=== PATIENT | female | born 1935 | race Caucasian/White ===

== ENCOUNTER 2017-12-30 16:54 | Emergency (ER) | payer MEDICARE, SELFPAY ==
[2017-12-30 16:55] VITALS: BP 128/69; PULSE 72; RESP 16; TEMP 36.5; O2SAT 95; BMI 28.0
--- NOTE | 2017-12-30 17:08 | EKG12_ITS ---
Test Reason : DIZZINESS Blood Pressure : / mmHG Vent. Rate : 070 BPM Atrial Rate : 070 BPM P-R Int : 202 ms QRS Dur : 090 ms QT Int : 396 ms P-R-T Axes : 049 -01 023 degrees QTc Int : 427 ms Normal sinus rhythm Septal infarct , age undetermined Abnormal ECG Confirmed by SUMMER COLEY, HARLEY ([id number]), editorial project manager MADHURI CORRAL ([id number]) on 01/04/2018 2:22:09 PM Referred By: Confirmed By:HARLEY WHEELER MD
--- NOTE | 2017-12-30 17:08 | RAD_ITS ---
STUDY: X-RAY CHEST REASON FOR EXAM: Female, 82 years old. Dizziness, shortness of breath. TECHNIQUE: Single AP portable view of the chest. COMPARISON: None. FINDINGS: The lungs are under expanded, and there is minor subsegmental crowding in the medial right base. Small calcified granuloma versus pulmonary vessel seen end-on in the medial left base above the diaphragm. There is no demonstrated pleural abnormality. There is borderline cardiomegaly. Normal mediastinum and micah. Normal visualized pulmonary arteries. Normal visualized aortic arch and descending thoracic aorta. Normal visualized thoracic spine. Normal visualized ribs, clavicles, and shoulders. There is no demonstrated abnormality of the visualized soft tissue structures of the upper abdomen. RAD/Chest 1 View (Portable) IMPRESSION: Suboptimal respiratory effort with minor medial right base subsegmental atelectasis. Electronically Signed: Lalo Jean-Baptiste MD at 17:56 EDT , Service support ,
--- NOTE | 2017-12-30 17:09 | ED.VISSUMM ---
- ER Visit Summary Date of Service: 12/30/17 Chief Complaint: Syncope History of Present Illness: The patient is a 82 F presenting after syncopal episode. Patient states she was at dinner she began to feel lightheaded, clammy, warm. She then had a syncopal episode. She did not fall to the floor. She denies any chest pain or shortness of breath prior to this incident. No history of similar complaints in the past. She has a history of hypertension, hypercholesterolemia, giant cell arteritis. She is on Plavix for history of a remote TIA. Denies other complaints. Physical Examination: Vitals are stable. Patient is afebrile. Alert no acute distress. HEENT exam is unremarkable. Neck is supple. Lungs are clear and equal bilaterally. Heart is regular rate and rhythm. Abdomen is soft nontender nondistended. Extremities are unremarkable. Skin is warm and dry. No focal neurologic deficit. Remainder of exam is unremarkable. Emergency Department Course and Treatment: EKG shows sinus rhythm rate is 70 with no acute ischemic changes. Chest x-ray shows atelectasis. CBC normal except for hemoglobin 11.8. Chemistries normal except for sodium 132, glucose 124. Patient states her sodium runs low. Urinalysis shows 10-25 white blood cells. Troponin is negative. Orthostatics are negative. Patient was given IV fluids and Keflex. Urine culture was sent. Patient refused CT head. Due to her syncopal episode I would like to observe her overnight. Patient declines admission. She understands the risks of leaving AGAINST MEDICAL ADVICE including [place], dysrhythmia, and signed out AGAINST MEDICAL ADVICE. She has an upcoming appointment with her primary care physician and is advised to follow-up with her primary care physician. She is advised to return to ED if she has any worsening complaints. Disposition: Left AGAINST MEDICAL ADVICE Impression: Syncope, UTI This note was generated with [employer] dictation software. It may contain incorrect words, spelling, and punctuation that were not noted in review of the chart prior to signing ED Disposition - Plan for ED Patient: Chief Complaint: Dizziness Instructions: ED Fainting Unkn Cause Prescriptions: Cephalexin [Keflex] 500 mg PO BID #14 capsule Referrals: Martha Hadley MD [Primary Care Provider] -
[2017-12-30 17:36] VITALS: BP 127/62; BP 150/69; BP 155/73; PULSE 77; PULSE 80; PULSE 81
--- NOTE | 2017-12-30 17:37 | NURSING ---
NO LW OR POA
[2017-12-30 17:39] LABS: Absolute Lymphocyte Count 1.44 X10^3/ul (0.83-4.51); Absolute Neutrophil Count 3.4 X10^3/uL (2.0-7.7); Basophil# 0.03 X10^3/uL; Basophil% 0.6 % (0-1); Eosinophil# 0.09 X10^3/uL; Eosinophils% 1.7 % (0-5); Hematocrit 36.3 % (37-47); Hemoglobin 11.8 g/dl (12.0-15.0); Lymphocyte # 1.44 X10^3/ul (4.0); Mean Corp Hgb Conc 32.5 g/gl (32-36); Mean Corpuscular Hgb 29.6 pg (27.0-32.0); Mean Corpuscular Volume 91.2 fL (81-99); Mean Platelet Vol. 7.9 fl (6.2-12.0); Monocyte# 0.34 X10^3/uL; Monocyte% 6.4 % (0-10); Neutrophil # 3.43 X10^3/uL (2.7-7.7); Neutrophil % 64.1 % (47-70); POSITIVE COUNT NO; POSITIVE DIFFERENTIAL NO; POSITIVE MORPHOLOGY NO; Platelet Count 222 K/mm3 (150-450); RBC Distribution Width CV 13.8 % (11.6-14.6); RBC Distribution Width SD 45.7 fl (35.1-43.9); Red Blood Count 3.98 M/mm3 (4.2-5.4); White Blood Count 5.3 K/mm3 (4.4-11.0)
[2017-12-30 17:59] LABS: Anion Gap 9 (5-15); BUN 12 mg/dL (7-18); BUN/Creat Ratio 12.3 RATIO (10-20); Calcium,Total 8.9 mg/dL (8.5-10.1); Chloride 96 mmol/L (98-107); Creatinine, Serum 0.98 mg/dL (0.55-1.02); EST Glomerular Filtration Rate 58 mL/min (>60); Est Glom Filt Rate - Afr Amer 70 mL/min (>60); Estimated Creatinine Clearance 35.61 ml/min; Glucose 124 mg/dL (74-106); Potassium 3.9 mmol/L (3.5-5.1); Sodium Level 132 mmol/L (136-145)
[2017-12-30 18:04] LABS: Bacteria 0 SEEN /hpf (None Seen); Squamous Epithelial Cells - UA 0 SEEN /hpf (5-10)
[2017-12-30 18:08] LABS: Color, Urine Yellow (Yellow); Glucose, Dipstick 50 mg/dl (Normal); Ketone-Dipstick 5 mg/dl (Negative); Leukocyte Esterase-Dipstick 500 /ul (Negative); Nitrite-Dipstick Negative (Negative); Occult Blood-Urine 25 /ul (Negative); Protein-Dipstick 30 mg/dl (Negative); Specific Gravity, Urine 1.025 (1.002-1.030); Urine Bilirubin Dipstick Negative (Negative); Urine Clarity Cloudy (Clear); Urine Urobilinogen 1 mg/dl (Normal)
[2017-12-30 18:25] LABS: Hyaline Cast 0-5 SEEN /lpf (0-5)
[2017-12-30 18:26] LABS: Mucous, Urine 2+ /hpf (<or=2+); Red Blood Cells-Urine 0-5 SEEN /hpf (0-5); White Blood Cells 10-25 SEEN /hpf (0-5)
--- NOTE | 2017-12-30 18:50 | ED.DEP ---
ED Disposition - Plan for ED Patient: Chief Complaint: Dizziness Instructions: ED Fainting Unkn Cause Prescriptions: Cephalexin [Keflex] 500 mg PO BID #14 capsule Referrals: Martha Hadley MD [Primary Care Provider] -
[2017-12-30 19:50] VITALS: BP 147/72; PULSE 94; RESP 23; O2SAT 95
[2017-12-30] MEDS: Cephalexin 250 MG Capsule 500 MG PO (19:50)
== END 2017-12-30 19:51 | disposition home or self-care (01) ==
PROVIDERS: Emergency Provider Emergency Medicine; Family Provider Internal Medicine; PCP Internal Medicine
DX: R55 Syncope and collapse (principal); N39.0 Urinary tract infection, site not specified; Z53.21 Procedure and treatment not carried out due to patient leaving prior to being seen by health care provider; J98.11 Atelectasis; I10 Essential (primary) hypertension; E78.00 Pure hypercholesterolemia, unspecified; M31.6 Other giant cell arteritis; Z86.73 Personal history of transient ischemic attack (TIA), and cerebral infarction without residual deficits; Z79.02 Long term (current) use of antithrombotics/antiplatelets; Z79.899 Other long term (current) drug therapy
CPT/HCPCS: 71045; 80048; 81001; 84484; 85025; 87086; 87088; 93005; 96360; 99285; J7040

== ENCOUNTER 2018-03-06 04:03 | Emergency (ER) | payer MEDICARE, SELFPAY ==
[2018-03-06 04:05] VITALS: BP 165/75; PULSE 86; RESP 16; TEMP 36.6; O2SAT 97; BMI 28.3
--- NOTE | 2018-03-06 04:17 | EKG12_ITS ---
Test Reason : LEFT ARM PAIN Blood Pressure : / mmHG Vent. Rate : 084 BPM Atrial Rate : 084 BPM P-R Int : 240 ms QRS Dur : 088 ms QT Int : 368 ms P-R-T Axes : 056 010 028 degrees QTc Int : 434 ms Sinus rhythm with 1st degree A-V block Otherwise normal ECG Confirmed by SUMMER COLEY, HARLEY ([id number]), associate editor MADHURI CORRAL ([id number]) on 03/10/2018 9:15:28 AM Referred By: VITALY Confirmed By:HARLEY WHEELER MD
--- NOTE | 2018-03-06 04:49 | ED.VISSUMM ---
- ER Visit Summary Date of Service: 03/06/18 Chief Complaint: Atraumatic left shoulder pain History of Present Illness: The patient is a 82 F home at rest and discomfort in her left shoulder. She denies any chest pain. She denies any shortness of breath. No nausea. This was nonexertional she has had no recent exertional dyspnea or exertional chest pain. She has had a recent cardiac workup which she states was negative. Including an echocardiogram as an outpatient. She states she initially did not want to come in but the paramedics were house and she decided to go ahead and be evaluated. At this time she does not want any further testing being done. Currently she is pain-free and symptom-free. Physical Examination: Well-appearing older female. Vital signs are stable and afebrile. Pulse is 97% room air no signs of hypoxia. H EENT exam unremarkable atraumatic. Neck nontender no JVD. Lungs clear to auscultation bilaterally. Heart regular rate and rhythm no murmur rate about 80. Chest wall nontender. No ecchymosis or bruising. No subcu air. Abdomen soft nontender. Normal bowel sounds no peritoneal signs. She is moving all 4 extremities. They are neurovascularly intact. She is equal symmetrical radial pulses. Calves are nontender without edema or cords. Back exam nontender. Neurologically she is awake and alert with no focal motor deficits. Test Results: EKG shows sinus rhythm a rate of 84 with no acute signs of HI or ischemia. There was a first-degree AV block. Emergency Department Course and Treatment: Patient's physical exam is normal. There is no reproducible pain or shoulder. She has normal range of motion the left shoulder. Her cardiac and rest of exam is otherwise unremarkable. Patient states she has had recent blood work done even a cardiac workup. She feels this is redundant and does not want any further testing. She understands this could be atypical cardiac presentation but she has had no recent exertional cardiac symptoms. She wants to be discharged to home. Treatment Plan: Follow-up with her primary care physician Dr. Hadley as needed. Return to ER feeling worse. She was offered but deferred a cardiac workup. Disposition: Discharge Impression: Atypical left shoulder discomfort resolved of uncertain etiology This note was generated with [employer] dictation software. It may contain incorrect words, spelling, and punctuation that were not noted in review of the chart prior to signing ED Disposition - Plan for ED Patient: Chief Complaint: Upper Extremity Injury Referrals: Martha Hadley MD [Primary Care Provider] -
--- NOTE | 2018-03-06 04:52 | ED.DEP ---
ED Disposition - Plan for ED Patient: Disposition: Home or Assisted Living Chief Complaint: Upper Extremity Injury Referrals: Martha Hadley MD [Primary Care Provider] - As soon as possible Additional Instructions: Your exam and vital signs are unremarkable tonight. I cannot explain the left shoulder discomfort it may be musculoskeletal it could be a an atypical cardiac presentation. Return if you are feeling worse specifically if you have chest pain, shortness of breath or nausea or breakout in a sweat. Follow-up your primary care physician for further evaluation.
[2018-03-06 05:05] VITALS: BP 151/76; PULSE 78; RESP 18; O2SAT 98
== END 2018-03-06 05:22 | disposition home or self-care (01) ==
PROVIDERS: Emergency Provider Emergency Medicine; Family Provider Internal Medicine; PCP Internal Medicine
DX: M25.512 Pain in left shoulder (principal); I10 Essential (primary) hypertension; Z86.73 Personal history of transient ischemic attack (TIA), and cerebral infarction without residual deficits; I44.0 Atrioventricular block, first degree
CPT/HCPCS: 93005; 99284

== ENCOUNTER 2020-04-15 15:58 | Observation (INO) | payer MEDICARE, SELFPAY ==
[2020-04-15] VITALS (12 sets, daily range): BP systolic 120–182; BP diastolic 71–90; PULSE 80–94; RESP 14–20; TEMP 36.6–36.7; O2SAT 95–97; BMI 30.4; BMI 29.6; BMI 29.7
[2020-04-15 16:05] LABS: Bedside Glucose 98 mg/dL (70-110)
--- NOTE | 2020-04-15 16:08 | ED.DCSUM_ITS ---
History of Present Illness Chief Complaint: Neuro S/Sx Informant: Patient Narrative: This is an 84-year-old female with history of stroke, hyperlipidemia, hypertension currently on Plavix presenting with symptoms of right arm paresthesia. She states this started about 1530. She states she was reading a book and she was having trouble reading the words and understanding them. She states that she felt confused. It is unknown if she had any facial droop. She was able to call her friend and did not apparently have slurred speech. Patient had been well prior to this. Past Medical History - Allergies and Home Meds Allergies/Adverse Reactions: Allergies No Known Allergies Allergy (Verified 04/15/20 16:20) Primary Care Physician: Martha Hadley MD [Primary Care Provider] - Prior records reviewed: Yes Surgical History: noncontributory Lives: Alone Smoking Status: Never smoker Alcohol: None Drugs: None - Family History Maternal Family History: Reports: Stroke Paternal Family History: Reports: Heart Disease - [place] Review of Systems General: Denies: Chills, Fever, Sweats Eyes: Reports: Visual changes - bilaterally, Blurred Vision - bilaterally - Resolved on arrival, Diplopia ENT: Denies: Rhinorrhea, Sore throat Cardiovascular: Denies: Chest pain, Palpitations Respiratory: Denies: Dyspnea, Cough, Dyspnea on exertion Gastrointestinal: Denies: Abdominal pain, Nausea, Vomiting, Diarrhea, Melena, Hematochezia Genitourinary: Denies: Dysuria, Hematuria, Frequency Musculoskeletal: Denies: Back pain, Extremity Pain Skin: Denies: Rash, Wounds Neurological: Reports: Parasthesia. Denies: Headache, Weakness, Numbness - Right arm Physical Exam Vital Signs/Narrative: Vital Signs Temp Pulse Resp BP Pulse Ox 04/15/20 16:00 97.8 F 94 17 182/90 H 95 General: Well nourished, Well developed, No Acute Distress Head: Normocephalic, Atraumatic Eyes: Perrl, EOMI ENT: Moist mucous membranes, No rhinorrhea Neck: Supple, Nontender Cardiovascular: Regular rate, Regular rhythm, No murmurs Respiratory: No distress, CTA bilaterally, Chest nontender Abdomen: Soft, Nontender, Nondistended, Normal bowel sounds Back: Nontender, Normal Inspection Extremities: Nontender, No edema Skin: Normal color, No rash Neurological: Alert, Oriented x3, Cranial nerves II-XII grossly intact, Normal Strength, Normal Sensation, - - NIH is 0 Psychological: Normal affect, Normal Mood Diagnostic/Tx/Re-eval - Rhythm Strip Rhythm Strip: Sinus Rhythm Rate: 91 - Medical Decision Making Clinical Impression(s) from Imaging Studies Brain CT 04/15/20 16:10 IMPRESSION: Mild atrophy and advanced periventricular white matter ischemic changes. No evidence for acute bleed. If concern for acute infarct MRI recommended Electronically Signed: Slava Arita MD at 16:25 EDT , Service support , ADDENDUM: 04/15/20 1638 IMPRESSION: Mild atrophy and advanced periventricular white matter ischemic changes. No evidence for acute bleed. If concern for acute infarct MRI recommended N.B. : The above information has been verbally conveyed by Slava Arita MD to Dr. Christopher Alatorre DO, on 04/15/2020 16:31:48 (ET). Electronically Signed: Slava Arita MD at 16:25 EDT , Service support , Head/Neck CTA 04/15/20 16:11 IMPRESSION: Normal CTA Head. Moderate approximately 60-70% stenosis of the left internal carotid Catheter angiography would be helpful for further evaluation and possible therapy if indicated clinically No significant disease on the right N.B. : The above information has been verbally conveyed by Slava Arita MD to Christopher Alatorre on 04/15/2020 16:35:35 (ET). Electronically Signed: Slava Arita MD at 16:44 EDT , Service support , ADDENDUM: 04/15/20 1651 IMPRESSION: Normal CTA Head. Moderate approximately 60-70% stenosis of the left internal carotid Catheter angiography would be helpful for further evaluation and possible therapy if indicated clinically No significant disease on the right N.B. : The above information has been verbally conveyed by Slava Arita MD to Christopher Alatorre on 04/15/2020 16:35:35 (ET). Electronically Signed: Slava Arita MD at 16:44 EDT , Service support , Laboratory Data 04/15/20 04/15/20 04/15/20 16:01 16:02 16:02 WBC 7.2 RBC 4.79 Hgb 13.4 Hct 41.0 MCV 85.6 MCH 28.0 MCHC 32.7 RDW Std Deviation 40.4 RDW Coeff of Mell 13.0 Plt Count 279 MPV 8.4 Immature Gran % (Auto) 0.300 Neut % (Auto) 57.8 Lymph % (Auto) 29.3 Dent % (Auto) 8.0 Eos % (Auto) 3.6 Baso % (Auto) 1.0 Absolute Neuts (auto) 4.2 Absolute Lymphs (auto) 2.12 Nucleated RBC % 0 Sodium 127 L Potassium 4.0 Chloride 92 L Carbon Dioxide 29.0 Anion Gap 6 BUN 20 H Creatinine 0.70 Estim Creat Clear Calc 30.62 Est GFR (MDRD) Af Amer 102 Est GFR (MDRD) Non-Af 84 BUN/Creatinine Ratio 28.4 H Glucose 105 Calcium 9.8 Troponin I < 0.015 POC Glucose 98 Patient presents with paresthesias in the right arm as well as confusion while reading. There is no reported facial droop or slurred speech. Patient's symptoms on arrival appear to be improved. Her NIH is 0. Head and neck to identify a left carotid stenosis otherwise there is no acute stroke or bleed. Quita sequeira's lab work does show that she is slightly dehydrated and hyponatremic which is possibly a cause of her symptoms. There is no lab work present for the last 3 years. Patient passed bedside swallow and was given aspirin. Impression: 1. TIA 2. Left carotid stenosis 3. Hyponatremia ED Disposition - Plan for ED Patient: Disposition: Acute Care Hospital [facility] Referrals: Martha Hadley MD [Primary Care Provider] -
--- NOTE | 2020-04-15 16:09 | EKG12_ITS ---
Test Reason : STROKE Blood Pressure : / mmHG Vent. Rate : 091 BPM Atrial Rate : 091 BPM P-R Int : 206 ms QRS Dur : 094 ms QT Int : 344 ms P-R-T Axes : 039 005 037 degrees QTc Int : 423 ms Normal sinus rhythm Normal ECG Confirmed by JOSE G COLEY, KETURAH ([id number]), online content editor MADHURI CORRAL ([id number]) on 04/17/2020 12:35:47 PM Referred By: JULIA Confirmed By:KETURAH ARAIZA MD
--- NOTE | 2020-04-15 16:09 | CM.ED ---
Social Work Responding to stroke alert. Patient friend, Suleiman present. Suleiman states that [place] son [place] and is aware of situation. Patient son, Brock on way to hospital. Patient alert and speaking with staff. No further family members to be contacted. Angelina Wise MSW, DIONNE
--- NOTE | 2020-04-15 16:10 | CT_ITS ---
We are attempting to reach an attending provider to discuss findings. An addendum with communication details will be sent when the communication is complete. STUDY: CT BRAIN WITHOUT CONTRAST REASON FOR EXAM: Female, 84 years old. STROKE, RT HAND NUMBNESS AND TINGLING, CONFUSION RADIATION DOSAGE (If Supplied By Facility): CTDIvol = ( ) mGy, DLP = ( 779.24 ) mGycm TECHNIQUE: Transaxial CT imaging of the brain was performed without administration of intravenous contrast material. Individualized dose optimization techniques were used for this CT. COMPARISON: No relevant priors. FINDINGS: Normal soft tissue structures. Normal calvarium. Calcification of cavernous carotids. Vertebrobasilar dolichoectasia consistent with systemic hypertension. Mild atrophy and advanced periventricular white matter ischemic changes.. Normal basal ganglia and thalami. Normal brainstem. Mild cerebellar atrophy. There is no intracranial hemorrhage. There are no findings of an acute ischemic infarction. Postsurgical changes of the orbits. There is diffuse pansinusitis with relative sparing of the right frontal sinus . CT/Brain/Head without Contrast IMPRESSION: Mild atrophy and advanced periventricular white matter ischemic changes. No evidence for acute bleed. If concern for acute infarct MRI recommended Electronically Signed: Slava Arita MD at 16:25 EDT , Service support ,
--- NOTE | 2020-04-15 16:11 | CT_ITS ---
STUDY: CTA HEAD AND NECK WITH CONTRAST REASON FOR EXAM: Female, 84 years old. CVA RADIATION DOSAGE (If Supplied By Facility): CTDIvol = ( 19.83 ) mGy, DLP = ( 460.94 ) mGycm TECHNIQUE: CT angiography was performed with a multi-detector CT scanner. Data acquisition was obtained from the skull base through the vertex following intravenous administration of ISOVUE 370 100ML. MIP images were reconstructed from the axial data set. Post-processing of the angiographic images was performed, with multiplanar reformation and 3D reconstruction. Individualized dose optimization techniques were used for this CT. COMPARISON: No relevant priors. FINDINGS: Normal bilateral petrous carotid arteries. Mild calcific plaquing of the right cavernous carotid artery with a normal supraclinoid bifurcation. Mild calcific plaquing of the left cavernous carotid artery with a normal supraclinoid bifurcation. Normal right A1 segments of the anterior cerebral artery. Normal left A1 segments of the anterior cerebral artery. Anterior communicating artery not visualized consistent with normal variant Normal bilateral A2 segments of the anterior cerebral arteries. Normal right M1 and M2 segments of the middle cerebral arteries, with a normal M1 bifurcation. Normal left M1 and M2 segments of the middle cerebral arteries, with a normal M1 bifurcation. Posterior communicating arteries are not visualized consistent with normal variant. Normal bilateral vertebral arteries. Normal basilar artery with a normal basilar bifurcation. The visualized bilateral superior cerebellar (SCA) arteries are normal. Normal bilateral P1, P2 and visualized P3 segments of the posterior cerebral arteries. There is no demonstrated aneurysm of the [place]. There is no demonstrated abnormality of the visualized brain. AORTIC ARCH: Normal visualized aortic arch. Normal origins of the brachiocephalic, left common carotid, and left subclavian arteries. RIGHT CAROTID ARTERIES: Mild multifocal calcific plaquing of the right common carotid artery (CCA). Normal right common carotid bulb. Normal origin of the right internal carotid (ICA) artery without a hemodynamically significant stenosis. Normal visualized cervical portion of the right internal carotid artery. Normal origin of the right external carotid artery (ECA). LEFT CAROTID ARTERIES: Normal left common carotid artery (CCA). Normal left common carotid bulb. Moderate soft and calcific plaquing of the origin of the left internal carotid (ICA) artery with approximately 60-70% stenosis utilizing NASCET criteria. Normal visualized cervical portion of the left internal carotid artery. Normal origin of the left external carotid artery (ECA). VERTEBRAL ARTERIES: Normal bilateral vertebral arteries. CT/CTA Head AND Neck W/ Contrast IMPRESSION: Normal CTA Head. Moderate approximately 60-70% stenosis of the left internal carotid Catheter angiography would be helpful for further evaluation and possible therapy if indicated clinically No significant disease on the right N.B. : The above information has been verbally conveyed by Slava Arita MD to Christopher Alatorre on 04/15/2020 16:35:35 (ET). Electronically Signed: Slava Arita MD at 16:44 EDT , Service support ,
[2020-04-15 16:24] LABS: Absolute Lymphocyte Count 2.12 X10^3/uL (0.83-4.51); Absolute Neutrophil Count 4.2 X10^3/uL (2.0-7.7); Basophil# 0.07 X10^3/uL; Eosinophil# 0.26 X10^3/uL; Eosinophils% 3.6 % (0-5); Hemoglobin 13.4 g/dL (12.0-15.0); Lymphocyte # 2.12 X10^3/ul (4.0); Lymphocyte % 29.3 % (19-41); Mean Corp Hgb Conc 32.7 g/dL (32-36); Mean Corpuscular Volume 85.6 fL (81-99); Mean Platelet Vol. 8.4 fl (6.2-12.0); Monocyte# 0.58 X10^3/uL; NRBC Flagged by Analyzer 0 % (0-5); Neutrophil # 4.19 X10^3/uL (2.7-7.7); Neutrophil % 57.8 % (47-70); Platelet Count 279 K/mm3 (150-450); RBC Distribution Width SD 40.4 fl (35.1-43.9); Red Blood Count 4.79 M/mm3 (4.2-5.4); White Blood Count 7.2 K/mm3 (4.4-11.0)
[2020-04-15 16:41] LABS: Anion Gap 6 (5-15); BUN 20 mg/dL (7-18); BUN/Creat Ratio 28.4 RATIO (10-20); Calcium,Total 9.8 mg/dL (8.5-10.1); Chloride 92 mmol/L (98-107); EST Glomerular Filtration Rate 84 mL/min (>60); Est Glom Filt Rate - Afr Amer 102 mL/min (>60); Estimated Creatinine Clearance 30.62 ml/min; Glucose 105 mg/dL (74-106); Sodium Level 127 mmol/L (136-145)
[2020-04-15 17:07] LABS: Prothrombin Time (Protime)PT. 12.3 SECONDS (11.7-14.9)
[2020-04-15 17:08] LABS: Partial Thromboplast Time 27.3 Seconds (24.1-36.2)
--- NOTE | 2020-04-15 17:13 | HP.PCM_ITS ---
Problem List (1) CVA (cerebral vascular accident) Status: Acute (2) Carotid stenosis Status: Chronic (3) PMR (polymyalgia rheumatica) Status: Chronic (4) Temporal arteritis Status: Chronic (5) Hyponatremia Status: Chronic (6) HTN (hypertension) Status: Chronic (7) HLD (hyperlipidemia) Status: Chronic History of Present Illness Date of Admission: 04/15/20 Chief Complaint: right hand parasthesias The patient is a 84 year old F with pmhx of prior stroke 2006 with no residual deficits, PMR and temporal arterities, HTN, HLD, and chronic hyponatremia who presented to the ER with c/o right hand numbness. The patient had no issues until today. At about 1430 she noticed that her right hand went numb. She also could not understand the words in the book she was trying to read. This went away after about 1 minute. She called a friend who contacted her doctor who advised going to the ER. The patient feels back to her normal self. She denies focal deficits, vision or hearing changes, DOWD, dizziness, palpitations, parasthesias. [] Past Medical History Past Medical History (Chronic Problems): Chronic Problems Carotid stenosis (Chronic) PMR (polymyalgia rheumatica) (Chronic) Temporal arteritis (Chronic) Hyponatremia (Chronic) HTN (hypertension) (Chronic) HLD (hyperlipidemia) (Chronic) Allergies No Known Allergies Allergy (Verified 04/15/20 16:20) Home Medications: Ambulatory Orders Medication Instructions Recorded Amlodipine [Norvasc] 5 mg PO DAILY 12/30/17 Atenolol [Tenormin (beta deanna)] 25 tab PO DAILY 12/30/17 Clopidogrel Bisulfate [Plavix] 75 mg PO DAILY 12/30/17 Lisinopril [Zestril] 10 mg PO BID 12/30/17 Lovastatin 40 mg PO DAILY 04/15/20 Omeprazole 20 mg PO DAILY 04/15/20 Surgical History: noncontributory Lives: Alone Smoking Status: Never smoker Tobacco Use: Non-smoker Alcohol: None Drugs: None - *Family History Maternal History Items: Stroke Paternal History Items: Heart Disease - [place] Review of Systems Constitutional: Denies: Chills, Fever, Weight Change HEENT: Denies: Head Aches, Sinus Congestion, Sinus Drainage Cardiovascular: Denies: Chest Pain, Palpitations Respiratory: Denies: Cough, Shortness of breath at rest, Sputum production Gastrointestinal: Denies: Abdominal Pain, Nausea, Vomiting Genitourinary: Denies: Dysuria Musculoskeletal: Denies: Joint Pain, Joint Tenderness Skin: Denies: Rash, Wounds Neurological: Reports: Numbness, - - could not read. Denies: Focal weakness, Tingling Psychiatric: Denies: Anxiety, Depression, Homicidal Ideations, Suicidal Ideations Hematologic/ Lymphatic: Denies: Easy Bruising, Easy Bleeding VTE Information - Inpt Only VTE Present on Admission: No VTE Mechan Device Prophylaxis: None VTE Pharm Prophylaxis ordered?: Yes Patient Problems: Active and Suspected Problems CVA (cerebral vascular accident) (Acute) - Physical Exam Vitals/I&O's: Vital Signs Temp Pulse Resp BP Pulse Ox 97.8 F 89 15 149/82 H 97 04/15/20 16:20 04/15/20 16:45 04/15/20 16:45 04/15/20 16:45 04/15/20 16:45 Oxygen Delivery Method Room Air Weight: 155 lb 13.869 oz Body Mass Index (BMI) 30.4 Finger Stick Blood Glucose 98 General: Alert, Oriented x3, Cooperative HEENT: Atraumatic, PERRLA, EOMI, Normocephalic Neck: Supple, No JVD, Negative Carotid Bruits Lungs: Clear to auscultation, Normal air movement Cardiovascular: Regular rate, No murmurs Abdomen: Bowel Sounds Present, Soft, Non Tender Extremities: No edema, Capillary Refill Less than 3 Seconds Skin: No rashes, No breakdown Musculoskeletal: No Tenderness to Palpation of Joints or Extremities Neurological: Cranial nerves II-XII grossly intact Psych/Mental Status: Normal Affect, Appropriate, Alert and oriented to time, place, person, mood and affect Laboratory Results 04/15/20 16:01: POC Glucose 98 04/15/20 16:02: WBC 7.2, RBC 4.79, Hgb 13.4, Hct 41.0, MCV 85.6, MCH 28.0, MCHC 32.7, RDW Std Deviation 40.4, RDW Coeff of Mell 13.0, Plt Count 279, MPV 8.4, Immature Gran % (Auto) 0.300, Neut % (Auto) 57.8, Lymph % (Auto) 29.3, [place] % (Auto) 8.0, Eos % (Auto) 3.6, Baso % (Auto) 1.0, Absolute Neuts (auto) 4.2, Absolute Lymphs (auto) 2.12, Nucleated RBC % 0 04/15/20 16:02: PT 12.3, INR 1.0, APTT 27.3 04/15/20 16:02: Sodium 127 L, Potassium 4.0, Chloride 92 L, Carbon Dioxide 29.0, Anion Gap 6, BUN 20 H, Creatinine 0.70, Estim Creat Clear Calc 30.62, Est GFR (MDRD) Af Amer 102, Est GFR (MDRD) Non-Af 84, BUN/Creatinine Ratio 28.4 H, Glucose 105, Calcium 9.8, Troponin I < 0.015 Current Medications Sodium Chloride () 500 mls @ 999 mls/hr IV .Q31M ONE Stop: 04/15/20 17:21 Assessment/Plan All Active Problems CVA (cerebral vascular accident) (Acute) 1. TIA - right hand parasthesias and inability to read, now asymptomatic. Pt with prior stroke. Trop neg. CTA 60-70% stenosis left ICA. Obtain carotid US. Obtain MRI brain, echo. Asa/plavix/statin. PT/OT/ST. 2. Hx HTN - permissive htn 3. HLD - lovastatin --> atorvastatin 4. Hx PMR with temporal arteritis. 5. Chronic hyponatremia - repeat BMP in AM. Unclear etiology. DVT ppx: lovenox This patient was seen by Jabari Do PA-C under the supervision of Dr. Paris.
[2020-04-15] MEDS: Aspirin 81 MG TAB.CHEW 324 MG PO (17:58)
--- NOTE | 2020-04-15 18:11 | RAD_ITS ---
STUDY: X-RAY CHEST REASON FOR EXAM: Female, 84 years old. CONFUSION, neuro sx TECHNIQUE: AP portable COMPARISON: 12-30-17 FINDINGS: Less than optimal inspiratory effort is seen however the lungs are clear. Tiny granulomatous process in left lower lobe There is no demonstrated pleural abnormality. Normal size heart. Normal mediastinum and micah. Normal visualized pulmonary arteries. Normal visualized aortic arch and descending thoracic aorta. Normal visualized thoracic spine. Normal visualized ribs, clavicles, and shoulders. There is no demonstrated abnormality of the visualized soft tissue structures of the upper abdomen. No significant changes since prior study RAD/Chest 1 View IMPRESSION: No acute cardiopulmonary pathology Electronically Signed: Slava Arita MD at 18:34 EDT , Service support ,
--- NOTE | 2020-04-15 19:35 | ECHOD_ITS ---
Reason For Study: ARRYTHYMIA Procedure This was a 2D Doppler, Color Flow transthoracic echocardiogram. The exam was of adequate technical quality. Exam performed portable in patient room. Left Ventricle Normal LV size. Left ventricular systolic function is normal. The estimated ejection fraction is 65 %. Diastolic function is indeterminate. No regional wall motion abnormalities noted. Right Ventricle Normal RV size. Normal systolic function. Atria The left atrium is mildly enlarged. Normal right atrium. Positive agitated saline contrast study for a right to left interatrial shunt compatible with a PFO versus ASD. Mitral Valve There is no mitral annular calcification. Mild diffuse mitral valve thickening. Mild mitral valve prolapse, posterior leaflet. Mild (1+) mitral valve insufficiency. Tricuspid Valve Normal tricuspid valve. Mild tricuspid valve insufficiency. Right ventricular systolic pressure estimated to be 47 mmHg. Aortic Valve Trisinus/trileaflet aortic valve. Mild diffuse aortic valve thickening. Trivial aortic valve insufficiency. Pulmonic Valve The pulmonic valve is not well visualized. Trivial pulmonic valve insufficiency. Great Vessels Normal sized aortic root. Calcified aortic root. Pericardium/Pleural Trivial pericardial effusion. There are no echocardiographic indications of cardiac tamponade. Medication Performed a rapid injection of agitated mix of 9 cc saline and 1cc air to assess for atrial septal defect. MMode/2D Measurements & Calculations LVIDd: 3.9 cm IVSd: 1.0 cm Ao root diam: 3.0 cm LVIDs: 2.5 cm LVPWd: 1.00 cm RVDd: 3.3 cm FS: 36.1 % LAV(MOD-bp): 48.9 ml LVAd ap4: 19.5 cm2 SV(MOD-sp4): 31.3 ml LAV(MOD-bp) Indexed: 29.5 ml/m2 EDV(MOD-sp4): 47.3 ml LAV(MOD-sp2): 51.1 ml EDV(sp4-el): 46.0 ml LAV(MOD-sp4): 46.6 ml LVAs ap4: 10.0 cm2 ESV(MOD-sp4): 16.0 ml ESV(sp4-el): 14.8 ml EF(MOD-sp4): 66.2 % EF(sp4-el): 67.9 % SV(sp4-el): 31.2 ml LA A4 area: 17.7 cm2 LA dimension(2D): 4.1 cm RA A4 area: 14.0 cm2 Time Measurements MV dec time: 0.32 sec Doppler Measurements & Calculations MV E max eliot: 43.1 cm/sec Lat Peak E' Eliot: 8.3 cm/sec Med Peak E' Eliot: 6.8 cm/sec MV A max eliot: 78.8 cm/sec E/E' lat: 5.2 E/E' med: 6.4 MV E/A: 0.55 Ao V2 max: 158.9 cm/sec AI max eliot: 302.2 cm/sec LV V1 max: 122.8 cm/sec Ao max P.1 mmHg AI max P.5 mmHg LV V1 max P.0 mmHg AI dec slope: 213.3 cm/sec2 AI P1/2t: 415.0 msec PA V2 max: 130.9 cm/sec TR max eliot: 328.4 cm/sec TR max P.1 mmHg Interpretation Summary Left ventricular systolic function is normal. The estimated ejection fraction is 65 %. The left atrium is mildly enlarged. Mild diffuse mitral valve thickening. Mild mitral valve prolapse, posterior leaflet Mild (1+) mitral valve insufficiency. Mild tricuspid valve insufficiency. Mild diffuse aortic valve thickening. Trivial aortic valve insufficiency. Trivial pulmonic valve insufficiency. Calcified aortic root. Trivial pericardial effusion. There are no echocardiographic indications of cardiac tamponade. Right ventricular systolic pressure estimated to be 47 mmHg. Diastolic function is indeterminate. Positive agitated saline contrast study for a right to left interatrial shunt compatible with a PFO versus ASD. Ordering Physician: Jazmine Paris Referring Physician: BERTO GREEN Performed By: Franca Lau RDCS
--- NOTE | 2020-04-15 19:35 | CDU_ITS ---
Reason For Study: TIA Rt. Velocities/BP Lt. Velocities/BP Prox CCA 74.7/9.5 cm/sec. Prox CCA 76.0/12.1 cm/sec. Mid CCA 85.2/10.8 cm/sec. Mid CCA 82.5/14.7 cm/sec. Dist CCA 81.2/12.1 cm/sec. Dist CCA 65.6/14.7 cm/sec. Prox ICA 78.6/12.1 cm/sec. Prox ICA 90.3/22.6 cm/sec. Mid ICA 56.5/10.8 cm/sec. Mid ICA 91.6/17.3 cm/sec. Dist ICA 73.4/17.3 cm/sec. Dist ICA 117.6/16.8 cm/sec. Rt. ICA/CCA = .9. Lt. ICA/CCA = 1.4. Prox ECA 119.1/8.2 cm/sec. Prox ECA 78.6 cm/sec. Rt. Vert. 38.2/9.5 cm/sec. Lt. Vert. 16.5/4.0 cm/sec. Right Extracranial There is intimal thickening but no significant atherosclerotic plaque noted in the right common carotid artery. There is heterogeneous, irregular atherosclerotic plaque noted in the right internal carotid artery. There is intimal thickening but no significant atherosclerotic plaque noted in the right external carotid artery. Antegrade flow is noted in the right vertebral artery. Left Extracranial There is heterogeneous, smooth atherosclerotic plaque noted in the left common carotid artery. There is heterogeneous, irregular atherosclerotic plaque noted in the left internal carotid artery. The left internal carotid artery is very tortuous. There is heterogeneous, irregular atherosclerotic plaque noted in the left external carotid artery. Antegrade flow is noted in the left vertebral artery. Procedure Carotid Duplex [id number]. The exam was diagnostic. Exam performed portable in patient room. Interpretation Summary Irregular calcific plaque of the proximal right internal carotid artery with less than 50% stenosis. <50% stenosis right external carotid Irregular calcific plaque at the proximal left internal carotid artery with less than 50% stenosis <50% stenosis left external carotid Patent and antegrade vertebrals bilaterally with diminished flow in the left Ordering Physician: Jazmine Paris Performed By: Tk Landeros RVT
[2020-04-15 20:10] LABS: Hemoglobin A1c 5.8 % (3.8-5.6); Magnesium 2.2 mg/dL (1.6-2.6); T4 Free Direct 1.14 ng/dL (0.76-1.46); Thyroid Stim Hormone (TSH) 6.69 uIU/mL (0.358-3.74)
[2020-04-15] MEDS: 0.9% Normal Saline 1,000 ML 100 ML IV (21:25)
[2020-04-15] MEDS: Atorvastatin Calcium 10 MG Tablet PO (21:25)
[2020-04-15] MEDS: Acetaminophen 325 MG Tablet 650 MG PO (21:29)
[2020-04-15] MEDS: BENZOCAINE/MENTHOL 1 LOZENGE MUCOUS MEM (21:36)
[2020-04-15 22:30] LABS: Urine Sodium 81 mmol/L (Not Establ.)
[2020-04-15 22:49] LABS: Osmolality, Urine 327 mOsm/KG
[2020-04-16] VITALS (8 sets, daily range): BP systolic 114–158; BP diastolic 70–85; PULSE 71–86; RESP 12–16; TEMP 36.4–37; O2SAT 94–98; BMI 29.6
[2020-04-16 06:02] LABS: Absolute Lymphocyte Count 1.64 X10^3/uL (0.83-4.51); Absolute Neutrophil Count 2.9 X10^3/uL (2.0-7.7); Basophil# 0.06 X10^3/uL; Basophil% 1.1 % (0-1); Eosinophils% 5.4 % (0-5); Hematocrit 36.4 % (37-47); Lymphocyte # 1.64 X10^3/ul (4.0); Lymphocyte % 29.6 % (19-41); Mean Corpuscular Hgb 28.6 pg (27.0-32.0); Mean Corpuscular Volume 86.9 fL (81-99); Monocyte# 0.63 X10^3/uL; Monocyte% 11.4 % (0-10); NRBC Flagged by Analyzer 0 % (0-5); Neutrophil % 52.3 % (47-70); Platelet Count 216 K/mm3 (150-450); RBC Distribution Width CV 13.4 % (11.6-14.6); RBC Distribution Width SD 41.9 fl (35.1-43.9); Red Blood Count 4.19 M/mm3 (4.2-5.4); White Blood Count 5.5 K/mm3 (4.4-11.0)
[2020-04-16 06:29] LABS: AST(SGOT) 15 U/L (15-37); Alanine Aminotransfer ALT/SGPT 17 U/L (13-56); Albumin, Serum 3.7 g/dL (3.2-5.0); Alkaline Phosphatase 66 U/L (45-117); Anion Gap 4 (5-15); BUN 13 mg/dL (7-18); BUN/Creat Ratio 17.5 RATIO (10-20); Calcium,Total 8.9 mg/dL (8.5-10.1); Chloride 98 mmol/L (98-107); Cholesterol 175 mg/dL (200); Creatinine, Serum 0.74 mg/dL (0.55-1.02); EST Glomerular Filtration Rate 79 mL/min (>60); Est Glom Filt Rate - Afr Amer 96 mL/min (>60); Estimated Creatinine Clearance 30.62 ml/min; Globulin 3.8 g/dL (2.2-4.2); Glucose 99 mg/dL (74-106); High Density Lipoprotein 76 mg/dL; Protein, Total 7.5 g/dL (6.4-8.2); Sodium Level 131 mmol/L (136-145); Triglycerides 66 mg/dL; Very Low Density Lipoprotein 13 mg/dL (5-40)
[2020-04-16] MEDS: 0.9% Normal Saline 1,000 ML 100 ML IV (06:43)
--- NOTE | 2020-04-16 07:00 | MRI_ITS ---
STUDY: MRI BRAIN WITHOUT CONTRAST REASON FOR EXAM: Female, 84 years old patient with right-sided arm paresthesia and confusion. TECHNIQUE: Standardized multiplanar fat and water weighted pulse sequences were obtained. COMPARISON: CT of the head dated 04-15-20. FINDINGS: There is moderate cerebral atrophy with widening of the extra-axial spaces and ventricular dilatation. There are multiple white matter hyperintensities, distributed throughout the deep white matter tracts of the cerebral hemispheres, consistent with moderate chronic white matter ischemic changes. There is confluent periventricular hyperintensity cloaking the lateral ventricles, consistent with periventricular leukoaraiosis. There is no evidence for recent intracranial ischemia or other cause of cytotoxic edema on diffusion weighted imaging (DWI). There is a small focus of susceptibility artifact in left cerebellum that may represent sequela of calcification or old petechial hemorrhage. There are prominent perivascular spaces (PVS) involving the basal ganglia. Normal thalami. There is no extra-axial fluid accumulation. Normal flow voids within the major intracranial circulation suggesting patency by spin echo criteria. There is ectatic tortuosity of the cavernous carotid arteries. Normal sella turcica, pituitary gland, infundibular stalk, optic chiasm and hypothalamus. Normal tectal plate and pineal gland. There are chronic white matter ischemic changes of the yolanda. The midbrain and medulla are otherwise normal. There are mild involutional changes of the cerebellum. There are large basal cisterns. Normal bilateral temporal bones. Normal bilateral internal auditory canals. There are bilateral ocular lens implants with otherwise normal intraorbital contents. There is mucoperiosteal inflammatory disease of the paranasal sinuses consistent with mild chronic sinusitis. Normal calvarium and skull base. Normal visualized soft tissue structures. There are degenerative changes of the cervical spine. MRI/Brain without Contrast IMPRESSION: 1. Involutional changes of the brain, as described above. 2. No MR evidence for acute infarct. Electronically Signed: Iman Jessica MD at 8:31 EDT , Service support ,
--- NOTE | 2020-04-16 08:52 | NURSING ---
VSA and NIHSS assessment late due to testing.
--- NOTE | 2020-04-16 08:58 | TELEMED_ITS ---
[facility] has confirmed receipt of a request for visit. This document confirms receipt of the order initiating the consult. To find the results of the consultation, please view the patient's reports for the scanned Telemed Consult.
[2020-04-16] MEDS: Clopidogrel Bisulfate 75 MG Tablet PO (10:00)
[2020-04-16] MEDS: 0.9% Saline Lock 10 ML Syringe IV (10:00)
[2020-04-16] MEDS: Enoxaparin 30 MG/0.3 ML Syringe SC (10:00)
[2020-04-16] MEDS: Pantoprazole Sodium 20 MG Tablet PO (10:00)
--- NOTE | 2020-04-16 10:09 | DCINST_ITS ---
- Discharge Diagnoses Current Active Problems: Current Active and Chronic Problems CVA (cerebral vascular accident) (Acute) Carotid stenosis (Chronic) PMR (polymyalgia rheumatica) (Chronic) Temporal arteritis (Chronic) Hyponatremia (Chronic) HTN (hypertension) (Chronic) HLD (hyperlipidemia) (Chronic) You will use the following diet at home:: Cardiac Your food should be the consistency of: Regular Your liquids should be the consistency of: Regular/Thin Discharge Activity: Return to Normal Activity Allergies/Adverse Reactions: Allergies No Known Allergies Allergy (Verified 04/15/20 16:20) Medications to take at Discharge Amlodipine [Norvasc] 5 mg PO DAILY 12/30/17 Atenolol [Tenormin (beta deanna)] 25 tab PO DAILY 12/30/17 Clopidogrel Bisulfate [Plavix] 75 mg PO DAILY 12/30/17 Lisinopril [Zestril] 10 mg PO BID 12/30/17 Omeprazole 20 mg PO DAILY 04/15/20 Aspirin [Aspirin, Baby] 81 mg PO DAILY@0800 tab.chew 04/16/20 Atorvastatin Calcium 40 mg PO QHS #30 tab 04/16/20 The following prescriptions were given: Atorvastatin Calcium 40 mg PO QHS #30 tab Prescription Printed Primary Care Physician: Martha Hadley MD [Primary Care Provider] - Please follow up with your Primary Care Physician in: 1-2 weeks Test Results: Test results from this visit will be discussed in further detail at your follow- up appointment, if applicable. Please Follow Up With: Sinan Mantilla MD When: 2 weeks Please Follow Up With: Jesus Ziegler MD When: 3-4 weeks Proposed Discharge Date: 04/16/20
[2020-04-16 10:30] LABS: Erythrocyte Sedimentation Rate 14 mm/hr (0-30)
[2020-04-16 10:35] LABS: CRP < 2.90 mg/L (0.0-3.0)
--- NOTE | 2020-04-16 10:43 | CASEMGMT ---
SW completed a PHQ 9 with patient as she possibly had a TIA. She scored a 3 which indicates minimal depression. Lupis TRUONG MSW
--- NOTE | 2020-04-16 11:22 | PHA.DC.MC ---
Pharmacy Service has performed discharge medication reconciliation and counseling for this patient. 1. ATORVASTATIN 40MG PO QHS 2. ASPIRIN 81MG PO DAILYCM The patient's discharge medication list was reviewed for discrepancies and discrepancies were resolved. Home Medications Amlodipine [Norvasc] 5 mg PO DAILY 12/30/17 Atenolol [Tenormin (beta deanna)] 25 tab PO DAILY 12/30/17 Clopidogrel Bisulfate [Plavix] 75 mg PO DAILY 12/30/17 Lisinopril [Zestril] 10 mg PO BID 12/30/17 Omeprazole 20 mg PO DAILY 04/15/20 Aspirin [Aspirin, Baby] 81 mg PO DAILY@0800 tab.chew 04/16/20 Atorvastatin Calcium 40 mg PO QHS #30 tab 04/16/20 The patient was counseled on the following discharge medications and changes in medications for homegoing were reviewed. The Reason for Use, instructions for use, and potential side effects were reviewed for all new medications. The patient's questions regarding all of their medications were answered. The patient was able to verbally demonstrate an understanding of their discharge medications. Patient counseled by deliverer pharmacyPantera.
--- NOTE | 2020-04-16 14:58 | DS.PCM_ITS ---
<Jabari Do - Last Filed: 04/16/20 15:10> Discharge Date and Diagnosis - Problem List Patient Problems: Active and Suspected Problems CVA (cerebral vascular accident) (Acute) Date of Admission: 04/15/20 Date of Discharge: 04/16/20 - Primary Discharge Diagnosis Acute Problems: Active Problems TIA ASD vs PFO Chronic hyponatremia Hx carotid stenosis hx Giant Cell arteritis and PMR HTN HLD - Secondary Discharge Diagnosis Chronic Problems: Chronic Problems Carotid stenosis (Chronic) PMR (polymyalgia rheumatica) (Chronic) Temporal arteritis (Chronic) Hyponatremia (Chronic) HTN (hypertension) (Chronic) HLD (hyperlipidemia) (Chronic) Hospital Course and Treatment Imaging Results: DIAGNOSTICS: 04/16/20 07:00 Brain without Contrast [MRI] Urgent CT/Brain/Head without Contrast IMPRESSION: Mild atrophy and advanced periventricular white matter ischemic changes. No evidence for acute bleed. If concern for acute infarct MRI recommended N.B. : The above information has been verbally conveyed by Slava Arita MD to Dr. Christopher Alatorre DO, on 04/15/2020 16:31:48 (ET). CT/CTA Head AND Neck W/ Contrast IMPRESSION: Normal CTA Head. Moderate approximately 60-70% stenosis of the left internal carotid Catheter angiography would be helpful for further evaluation and possible therapy if indicated clinically No significant disease on the right RAD/Chest 1 View IMPRESSION: No acute cardiopulmonary pathology Procedure Carotid Duplex [id number]. The exam was diagnostic. Exam performed portable in patient room. Interpretation Summary Irregular calcific plaque of the proximal right internal carotid artery with less than 50% stenosis. <50% stenosis right external carotid Irregular calcific plaque at the proximal left internal carotid artery with less than 50% stenosis <50% stenosis left external carotid Patent and antegrade vertebrals bilaterally with diminished flow in the left 2D TTE: Interpretation Summary Left ventricular systolic function is normal. The estimated ejection fraction is 65 %. The left atrium is mildly enlarged. Mild diffuse mitral valve thickening. Mild mitral valve prolapse, posterior leaflet Mild (1+) mitral valve insufficiency. Mild tricuspid valve insufficiency. Mild diffuse aortic valve thickening. Trivial aortic valve insufficiency. Trivial pulmonic valve insufficiency. Calcified aortic root. Trivial pericardial effusion. There are no echocardiographic indications of cardiac tamponade. Right ventricular systolic pressure estimated to be 47 mmHg. Diastolic function is indeterminate. Positive agitated saline contrast study for a right to left interatrial shunt compatible with a PFO versus ASD. MRI/Brain without Contrast IMPRESSION: 1. Involutional changes of the brain, as described above. 2. No MR evidence for acute infarct. Consults: Neurology - [facility] Cardiology - [place] Operations: None Procedures: 2-D Echocardiogram Summary of Care Provided: Hospital Course: The patient is a 84 year old F with pmhx as above who presented to the ER with c/o right hand numbness and inability to read. She experienced this for about 1- 2 minutes before it completely resolved. She was brought to the ER and found to have CT brain without acute findings, negative troponin, mild hyponatremia (chronic), and CTA head and neck showing 60-70% stenosis of the Left ICA. NIHSS 0 in the ER and patient felt back to her normal self. The patient was admitted to the PCU on tele. SR on tele overnight. MRI the following day was negative for stroke. Symptoms did not return. Neurology was consulted and felt this was a TIA. Carotid ultrasound was utilized to further evaluate underlying carotid stenosis, this found less than 50% stenosis of the right internal carotid artery, less than 50% stenosis of the right external carotid artery, less than 50% stenosis of the left internal carotid artery and less than 50% stenosis of the left external carotid artery. ESR and CRP were checked due to her hx of giant cell arteritis, however these were normal. She was already on plavix and lovastatin, plavix was continued, aspirin was added, and lovastatin was changed to atorvastatin. Echo was obtained and showed ASD vs PFO. Cardiology was consulted. The patient will likely need further evaluated with LEAN[facility]. The patient was discharged home in stable condition. She will need follow up with her PCP in 1-2 weeks, neurology in 3-4 weeks, vascular surgery in 2 weeks, and with cardiology as directed. This patient was seen by Jabari Do PA-C under the supervision of Doctor Hurley. [] Patient Problems: Active and Suspected Problems CVA (cerebral vascular accident) (Acute) - Physical Exam Vitals/I&O's: Vital Signs Temp Pulse Resp BP Pulse Ox 97.5 F L 82 16 146/85 H 95 04/16/20 09:56 04/16/20 09:56 04/16/20 09:56 04/16/20 09:56 04/16/20 09:56 Oxygen Delivery Method Room Air Weight: 151 lb 14.376 oz Body Mass Index (BMI) 29.6 Finger Stick Blood Glucose 98 Intake and Output for Last 24 Hours 04/14/20 04/15/20 04/16/20 23:59 23:59 23:59 Intake Total 740 / 740 1495 / 1495 Output Total 500 / 500 Balance 240 / 240 1495 / 1495 General: Alert, Oriented x3, Cooperative HEENT: Atraumatic, PERRLA, EOMI, Normocephalic Neck: Supple, No JVD, Negative Carotid Bruits Lungs: Clear to auscultation, Normal air movement Cardiovascular: Regular rate, No murmurs Abdomen: Bowel Sounds Present, Soft, Non Tender Extremities: No edema, Capillary Refill Less than 3 Seconds Skin: No rashes, No breakdown Musculoskeletal: No Tenderness to Palpation of Joints or Extremities Neurological: Cranial nerves II-XII grossly intact Psych/Mental Status: Normal Affect, Appropriate, Alert and oriented to time, place, person, mood and affect Laboratory Results 04/15/20 16:01: POC Glucose 98 04/15/20 16:02: WBC 7.2, RBC 4.79, Hgb 13.4, Hct 41.0, MCV 85.6, MCH 28.0, MCHC 32.7, RDW Std Deviation 40.4, RDW Coeff of Mell 13.0, Plt Count 279, MPV 8.4, Immature Gran % (Auto) 0.300, Neut % (Auto) 57.8, Lymph % (Auto) 29.3, [place] % (Auto) 8.0, Eos % (Auto) 3.6, Baso % (Auto) 1.0, Absolute Neuts (auto) 4.2, Absolute Lymphs (auto) 2.12, Nucleated RBC % 0 04/15/20 16:02: PT 12.3, INR 1.0, APTT 27.3 04/15/20 16:02: Sodium 127 L, Potassium 4.0, Chloride 92 L, Carbon Dioxide 29.0, Anion Gap 6, BUN 20 H, Creatinine 0.70, Estim Creat Clear Calc 30.62, Est GFR (MDRD) Af Amer 102, Est GFR (MDRD) Non-Af 84, BUN/Creatinine Ratio 28.4 H, Glucose 105, Calcium 9.8, Troponin I < 0.015 04/15/20 16:02: Magnesium 2.2, TSH 6.69 H, Free T4 1.14 04/15/20 16:02: Hemoglobin A1c 5.8 H 04/15/20 21:40: Urine Osmolality 327, Ur Random Sodium 81, Urine Creatinine 17.30 04/16/20 05:54: WBC 5.5, RBC 4.19 L, Hgb 12.0, Hct 36.4 L, MCV 86.9, MCH 28.6, MCHC 33.0, RDW Std Deviation 41.9, RDW Coeff of Mell 13.4, Plt Count 216, MPV 8.0, Immature Gran % (Auto) 0.200, Neut % (Auto) 52.3, Lymph % (Auto) 29.6, [place] % (Auto) 11.4 H, Eos % (Auto) 5.4 H, Baso % (Auto) 1.1 H, Absolute Neuts (auto) 2.9, Absolute Lymphs (auto) 1.64, Nucleated RBC % 0 04/16/20 05:54: Sodium 131 L, Potassium 4.0, Chloride 98, Carbon Dioxide 29.0, Anion Gap 4 L, BUN 13, Creatinine 0.74, Estim Creat Clear Calc 30.62, Est GFR (MDRD) Af Amer 96, Est GFR (MDRD) Non-Af 79, BUN/Creatinine Ratio 17.5, Glucose 99, Calcium 8.9, Total Bilirubin 0.40, AST 15, ALT 17, Alkaline Phosphatase 66, Total Protein 7.5, Albumin 3.7, Globulin 3.8, Albumin/Globulin Ratio 1.0, Triglycerides 66, Cholesterol 175, LDL Cholesterol 86, VLDL Cholesterol 13, HDL Cholesterol 76 04/16/20 05:55: ESR 14 04/16/20 05:55: C-React Prot Ext Range < 2.90 Current Medications Acetaminophen (Tylenol) 650 mg PO Q6H PRN PRN PRN Reason: Pain Score 1-10/Temp > 100.7 F Last Admin: 04/15/20 21:29 Dose: 650 mg Documented by: Al Hydroxide/Mg Hydroxide (Mylanta Ii) 30 ml PO Q6H PRN PRN PRN Reason: Gastric Burning Albuterol Sulfate (Ventolin Aerosols) 2.5 mg INHALATION Q2H PRN PRN PRN Reason: Dyspnea, wheezing Aspirin (Aspirin, Baby) 81 mg PO DAILY@0800 [facility] Atorvastatin Calcium (Lipitor) 40 mg PO QHS [facility] Clopidogrel Bisulfate (Plavix) 75 mg PO DAILY [facility] Last Admin: 04/16/20 10:00 Dose: 75 mg Documented by: Dextrose (D50w Syringe) 0 gm IV X1 PRN; Protocol PRN Reason: Hypoglycemia Enoxaparin Sodium (Lovenox) 30 mg SC DAILY [facility] Last Admin: 04/16/20 10:00 Dose: 30 mg Documented by: Folic Acid (Folic Acid) 1 mg PO DAILY [facility] Last Admin: 04/16/20 10:00 Dose: Not Given Documented by: Glucagon () 1 mg IM .X1 PRN PRN Reason: Hypoglycemia Guaifenesin (Robitussin) 20 ml PO Q4H PRN PRN PRN Reason: COUGH Hydralazine HCl (Apresoline Iv) 5 mg IV Q30M PRN PRN Reason: to maintain BP goals Sodium Chloride () 1,000 mls @ 100 mls/hr IV .Q10H [facility] Last Infusion: 04/16/20 10:00 Dose: 100 mls/hr Documented by: Labetalol HCl (Trandate) 10 - 20 mg IV Q10M PRN PRN PRN Reason: to maintain BP goals Magnesium Hydroxide (Milk Of Magnesia) 30 ml PO DAILY PRN PRN PRN Reason: Constipation Melatonin (Melatonin) 3 mg PO QHS PRN PRN PRN Reason: INSOMNIA Morphine Sulfate () 2 mg IV Q3H PRN PRN PRN Reason: Pain Score 6-10/10 Nitroglycerin (Nitrostat) 0.4 mg SUBLINGUAL Q5M PRN PRN Reason: CARDIAC/CHEST PAIN Ondansetron HCl (Zofran) 4 mg IV Q8H PRN PRN PRN Reason: NAUSEA/VOMITING Oxycodone HCl (Oxyir) 5 mg PO Q4H PRN PRN PRN Reason: Pain Score 4-5/10 Pantoprazole Sodium (Protonix) 20 mg PO DAILY [facility] Last Admin: 04/16/20 10:00 Dose: 20 mg Documented by: Prochlorperazine Edisylate (Compazine Iv) 5 mg IV Q4H PRN PRN PRN Reason: Breakthrough Nausea/Vomiting Psyllium Hydrophilic Mucilloid (Metamucil) 1 packet PO DAILY PRN PRN PRN Reason: Constipation Senna/Docusate Sodium (Senokot-S, Any-Colace) 2 tablet PO BID PRN PRN PRN Reason: Constipation Sodium Chloride () 10 - 40 ml IV UD PRN PRN Reason: SALINE FLUSH Last Admin: 04/16/20 10:00 Dose: 10 ml Documented by: Throat Lozenges (Cepacol Sore Throat Lozenge) 1 lozenge MUCOUS MEM Q2H PRN PRN PRN Reason: SORE THROAT Last Admin: 04/15/20 21:36 Dose: 1 lozenge Documented by: Discharge Diet: Low fat/ Low Cholesterol, 2000 mg Sodium Diet Discharge Activity: Return to Normal Activity Home Medications: Medications to take at Discharge Amlodipine [Norvasc] 5 mg PO DAILY 12/30/17 Atenolol [Tenormin (beta deanna)] 25 tab PO DAILY 12/30/17 Clopidogrel Bisulfate [Plavix] 75 mg PO DAILY 12/30/17 Lisinopril [Zestril] 10 mg PO BID 12/30/17 Omeprazole 20 mg PO DAILY 04/15/20 Aspirin [Aspirin, Baby] 81 mg PO DAILY@0800 tab.chew 04/16/20 Atorvastatin Calcium 40 mg PO QHS #30 tab 04/16/20 Following Prescrptions Were Given to Patient: Atorvastatin Calcium 40 mg PO QHS #30 tab Prescription Printed Other Amb Orders: 30-Day Event Recorder [[facility]] Location: None Selected Primary Care Physician: Martha Hadley MD [Primary Care Provider] - Please follow up with your Primary Care Physician in: 1-2 weeks Please Follow Up With: Sinan Mantilla MD When: 2 weeks Please Follow Up With: Jesus Ziegler MD When: 3-4 weeks Please Follow Up With: Mendoza Fuller MD When: as directed Disposition: Home Minutes spent on discharge:: 40 Patient Condition:: Stable Medical Necessity - Tobacco Use Smoking Status: Never smoker Tobacco Use: Non-smoker Meaningful Use Info Meaningful Use Diagnoses (Choose all that apply): None applicable <Melvin Hurley - Last Filed: 04/16/20 16:07> Discharge Date and Diagnosis - Primary Discharge Diagnosis Acute Problems: Active Problems CVA (cerebral vascular accident) (Acute) - Secondary Discharge Diagnosis Chronic Problems: Chronic Problems Carotid stenosis (Chronic) PMR (polymyalgia rheumatica) (Chronic) Temporal arteritis (Chronic) Hyponatremia (Chronic) HTN (hypertension) (Chronic) HLD (hyperlipidemia) (Chronic) Hospital Course and Treatment Imaging Results: 04/16/20 07:00 Brain without Contrast [MRI] Urgent Summary of Care Provided: This patient was seen in conjunction with Jabari STUBBS. I have independently interviewed and examined the patient and reviewed pertinent history, examination findings, laboratory and plan of management. I have reviewed the note and ag ree with the documented findings with the few additional points. In brief, The patient is a 84 year old F with history of hypertension, dyslipidemia is being admitted with right hand numbness and inability to read to PCU. Symptoms got resolved. NIH stroke scale 0. She had full stroke work-up. MRI brain did not show acute stroke. CTA head and neck showed 60 to 70% stenosis of left ICA. She further had carotid Doppler showed irregular calcific plaque of bilateral proximal ICA less than 50%, bilateral external carotid less than 50% stenosis. [facility] neurology was consulted and I agree with dual antiplatelet agent and high intensity statin. ESR and CRP normal. A1c 5.8 suggestive of prediabetes 2D echo showed small ASD versus PFO with [id number] shunt, mildly enlarged left atrium. Mild TR, RVSP 47 mmHg. Trivial AR. 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 Fuller was consulted. Advised to follow-up neurology as an outpatient. 30-day event monitor and further follow-up in cardiology office. Discharge medication reconciliation done. Discharge follow-up instructions completed. Discharge process discussed with the patient and all questions were answered to patient's satisfaction. Prescription for 30-day event monitor signed. Total time spent, exact 35 minutes on discharge meds reconciliation, examination, coordination of care with nurses and ancillary staff, review of imaging and blood test and discussion with the patient on follow-up instructions I have discussed my assessment with Jabari STUBBS and orders have been reviewed. [] Subjective: Patient blood pressure and heart rate is controlled. No hypoxia or tachypnea. Physical exam General: Alert, Oriented x3, Cooperative HEENT: Atraumatic, PERRLA, EOMI, Normocephalic Oral: No Gingival or Mucosal Lesions/ Ulcerations Neck: Supple, No JVD, Negative Carotid Bruits Lungs: Air entry diminished in bilateral lung bases. No crepitation/rhonchi Cardiovascular: Regular rate, Regular Rhythm, Normal S1, Normal S2, systolic murmur present over left lower sternal border. Faint early diastolic murmur at right second intercostal space. Abdomen: Bowel Sounds Present, Soft, Non Tender, Non-Distended : No renal angle tenderness. No suprapubic tenderness. Extremities: No edema, Capillary Refill Less than 3 Seconds Skin: No rashes, No breakdown Musculoskeletal: No Tenderness to Palpation of Joints or Extremities Neurological: Cranial nerves II-XII grossly intact, Deep Tendon Reflexes 2+/4 and Symmetrical, Neuro grossly intact. NIH stroke scale 0 Psych/Mental Status: Normal Affect, Appropriate. Objective: Seen and examined. Patient is alert awake oriented x3. - Physical Exam Vitals/I&O's: Vital Signs Temp Pulse Resp BP Pulse Ox 97.5 F L 83 16 146/85 H 95 04/16/20 09:56 04/16/20 14:52 04/16/20 09:56 04/16/20 09:56 04/16/20 09:56 Oxygen Delivery Method Room Air Weight: 151 lb 14.376 oz Body Mass Index (BMI) 29.6 Finger Stick Blood Glucose 98 Intake and Output for Last 24 Hours 04/14/20 04/15/20 04/16/20 23:59 23:59 23:59 Intake Total 740 / 740 1495 / 1495 Output Total 500 / 500 Balance 240 / 240 1495 / 1495 Laboratory Results 04/15/20 16:01: POC Glucose 98 04/15/20 16:02: WBC 7.2, RBC 4.79, Hgb 13.4, Hct 41.0, MCV 85.6, MCH 28.0, MCHC 32.7, RDW Std Deviation 40.4, RDW Coeff of Mell 13.0, Plt Count 279, MPV 8.4, Immature Gran % (Auto) 0.300, Neut % (Auto) 57.8, Lymph % (Auto) 29.3, [place] % (Auto) 8.0, Eos % (Auto) 3.6, Baso % (Auto) 1.0, Absolute Neuts (auto) 4.2, Absolute Lymphs (auto) 2.12, Nucleated RBC % 0 04/15/20 16:02: PT 12.3, INR 1.0, APTT 27.3 04/15/20 16:02: Sodium 127 L, Potassium 4.0, Chloride 92 L, Carbon Dioxide 29.0, Anion Gap 6, BUN 20 H, Creatinine 0.70, Estim Creat Clear Calc 30.62, Est GFR (MDRD) Af Amer 102, Est GFR (MDRD) Non-Af 84, BUN/Creatinine Ratio 28.4 H, Glucose 105, Calcium 9.8, Troponin I < 0.015 04/15/20 16:02: Magnesium 2.2, TSH 6.69 H, Free T4 1.14 04/15/20 16:02: Hemoglobin A1c 5.8 H 04/15/20 21:40: Urine Osmolality 327, Ur Random Sodium 81, Urine Creatinine 17. 30 04/16/20 05:54: WBC 5.5, RBC 4.19 L, Hgb 12.0, Hct 36.4 L, MCV 86.9, MCH 28.6, MCHC 33.0, RDW Std Deviation 41.9, RDW Coeff of Mell 13.4, Plt Count 216, MPV 8.0, Immature Gran % (Auto) 0.200, Neut % (Auto) 52.3, Lymph % (Auto) 29.6, [place] % (Auto) 11.4 H, Eos % (Auto) 5.4 H, Baso % (Auto) 1.1 H, Absolute Neuts (auto) 2.9, Absolute Lymphs (auto) 1.64, Nucleated RBC % 0 04/16/20 05:54: Sodium 131 L, Potassium 4.0, Chloride 98, Carbon Dioxide 29.0, Anion Gap 4 L, BUN 13, Creatinine 0.74, Estim Creat Clear Calc 30.62, Est GFR (MDRD) Af Amer 96, Est GFR (MDRD) Non-Af 79, BUN/Creatinine Ratio 17.5, Glucose 99, Calcium 8.9, Total Bilirubin 0.40, AST 15, ALT 17, Alkaline Phosphatase 66, Total Protein 7.5, Albumin 3.7, Globulin 3.8, Albumin/Globulin Ratio 1.0, Triglycerides 66, Cholesterol 175, LDL Cholesterol 86, VLDL Cholesterol 13, HDL Cholesterol 76 04/16/20 05:55: ESR 14 04/16/20 05:55: C-React Prot Ext Range < 2.90 Current Medications Acetaminophen (Tylenol) 650 mg PO Q6H PRN PRN PRN Reason: Pain Score 1-10/Temp > 100.7 F Last Admin: 04/15/20 21:29 Dose: 650 mg Documented by: Al Hydroxide/Mg Hydroxide (Mylanta Ii) 30 ml PO Q6H PRN PRN PRN Reason: Gastric Burning Albuterol Sulfate (Ventolin Aerosols) 2.5 mg INHALATION Q2H PRN PRN PRN Reason: Dyspnea, wheezing Aspirin (Aspirin, Baby) 81 mg PO DAILY@0800 [facility] Atorvastatin Calcium (Lipitor) 40 mg PO QHS [facility] Clopidogrel Bisulfate (Plavix) 75 mg PO DAILY [facility] Last Admin: 04/16/20 10:00 Dose: 75 mg Documented by: Dextrose (D50w Syringe) 0 gm IV X1 PRN; Protocol PRN Reason: Hypoglycemia Enoxaparin Sodium (Lovenox) 30 mg SC DAILY [facility] Last Admin: 04/16/20 10:00 Dose: 30 mg Documented by: Folic Acid (Folic Acid) 1 mg PO DAILY [facility] Last Admin: 04/16/20 10:00 Dose: Not Given Documented by: Glucagon () 1 mg IM .X1 PRN PRN Reason: Hypoglycemia Guaifenesin (Robitussin) 20 ml PO Q4H PRN PRN PRN Reason: COUGH Hydralazine HCl (Apresoline Iv) 5 mg IV Q30M PRN PRN Reason: to maintain BP goals Sodium Chloride () 1,000 mls @ 100 mls/hr IV .Q10H [facility] Last Infusion: 04/16/20 10:00 Dose: 100 mls/hr Documented by: Labetalol HCl (Trandate) 10 - 20 mg IV Q10M PRN PRN PRN Reason: to maintain BP goals Magnesium Hydroxide (Milk Of Magnesia) 30 ml PO DAILY PRN PRN PRN Reason: Constipation Melatonin (Melatonin) 3 mg PO QHS PRN PRN PRN Reason: INSOMNIA Morphine Sulfate () 2 mg IV Q3H PRN PRN PRN Reason: Pain Score 6-10/10 Nitroglycerin (Nitrostat) 0.4 mg SUBLINGUAL Q5M PRN PRN Reason: CARDIAC/CHEST PAIN Ondansetron HCl (Zofran) 4 mg IV Q8H PRN PRN PRN Reason: NAUSEA/VOMITING Oxycodone HCl (Oxyir) 5 mg PO Q4H PRN PRN PRN Reason: Pain Score 4-5/10 Pantoprazole Sodium (Protonix) 20 mg PO DAILY [facility] Last Admin: 04/16/20 10:00 Dose: 20 mg Documented by: Prochlorperazine Edisylate (Compazine Iv) 5 mg IV Q4H PRN PRN PRN Reason: Breakthrough Nausea/Vomiting Psyllium Hydrophilic Mucilloid (Metamucil) 1 packet PO DAILY PRN PRN PRN Reason: Constipation Senna/Docusate Sodium (Senokot-S, Any-Colace) 2 tablet PO BID PRN PRN PRN Reason: Constipation Sodium Chloride () 10 - 40 ml IV UD PRN PRN Reason: SALINE FLUSH Last Admin: 04/16/20 10:00 Dose: 10 ml Documented by: Throat Lozenges (Cepacol Sore Throat Lozenge) 1 lozenge MUCOUS MEM Q2H PRN PRN PRN Reason: SORE THROAT Last Admin: 04/15/20 21:36 Dose: 1 lozenge Documented by: OBSV E&M: [id number] Observation care discharge
--- NOTE | 2020-04-16 18:54 | PCM.CONS.C ---
Problem List (1) Interatrial cardiac shunt Status: Acute (2) CVA (cerebral vascular accident) Status: Acute (3) Carotid stenosis Status: Chronic (4) HLD (hyperlipidemia) Status: Chronic (5) HTN (hypertension) Status: Chronic Reason for Consult Date of Consultation: 04/16/20 History of Present Illness: The patient is a 84 year oldavp-godv-ehe white female who has previously followed with [facility] cardiology who states she has a history of a hole in my heart superimposed upon hyperlipidemia, hypertension, carotid artery disease, who is undergoing evaluation and care for a CVA. She states that she has been told in the past about the hole in my heart . She was told it was small and was not an issue that required further evaluation or care. She presented to the hospital for concerns of a TIA/CVA. As part of her evaluation she underwent a transthoracic echocardiogram. Her agitated saline contrast study was thought to be positive for right to left interatrial shunt compatible with either PFO versus an ASD. Thus cardiology was consulted. At the present time she denies any concerning chest discomfort or difficulty breathing. She has had no orthopnea or PND or peripheral pitting edema. She denies any palpitations or rapid heart rates. There is been no near syncope or syncope. She states she may have worn a heart monitor as an outpatient many years ago. She does not recall having any additional cardiac studies done other than previous transthoracic echocardiograms through the [facility] system. She has been evaluated by neurology. There is been recommendations to pursue further evaluation of her carotid artery disease as to a potential etiology for her CVA. At the moment she states she feels back to her baseline status. [] Past Medical History Allergies/Adverse Reactions: Allergies No Known Allergies Allergy (Verified 04/15/20 16:20) Home Medications: Ambulatory Orders Medication Instructions Recorded Amlodipine [Norvasc] 5 mg PO DAILY 12/30/17 Atenolol [Tenormin (beta deanna)] 25 tab PO DAILY 12/30/17 Clopidogrel Bisulfate [Plavix] 75 mg PO DAILY 12/30/17 Lisinopril [Zestril] 10 mg PO BID 12/30/17 Omeprazole 20 mg PO DAILY 04/15/20 Aspirin [Aspirin, Baby] 81 mg PO DAILY@0800 tab.chew 04/16/20 Atorvastatin Calcium 40 mg PO QHS #30 tab 04/16/20 Past Medical History (Chronic Problems): Chronic Problems Carotid stenosis (Chronic) PMR (polymyalgia rheumatica) (Chronic) Temporal arteritis (Chronic) Hyponatremia (Chronic) HTN (hypertension) (Chronic) HLD (hyperlipidemia) (Chronic) Surgical History: noncontributory - *Family History Maternal History Items: Stroke Paternal History Items: Heart Disease - [facility] Lives: Alone Smoking Status: Never smoker Tobacco Use: Non-smoker Alcohol: None Drugs: None Review of Systems - Review of Systems General: Denies: Fever, Night Sweats, Fatigue Cardiovascular: Denies: Chest Discomfort, Shortness of Breath, Orthopnea, PND, Peripheral Edema, Palpitations, Lightheadedness, Dizziness, Near Syncope, Syncope Respiratory: Denies: Cough, Sputum Production, Hemoptysis Gastrointestinal: Denies: Hematemesis, Hematochezia, Melena Genitourinary: Denies: Dysuria, Hematuria Skin: Denies: Rash Subjectve: This is a pleasant 84-year-old white female who appears resting comfortably at the moment in no acute distress. Objective: Vital Signs Temp Pulse Resp BP Pulse Ox 98.4 F 86 16 158/77 H 96 04/16/20 16:02 04/16/20 16:02 04/16/20 16:02 04/16/20 16:02 04/16/20 16:02 Oxygen Delivery Method Room Air Weight: 151 lb 14.376 oz Body Mass Index (BMI) 29.6 Finger Stick Blood Glucose 98 Intake and Output for Last 24 Hours 04/14/20 04/15/20 04/16/20 23:59 23:59 23:59 Intake Total 740 / 740 2121.67 / 2121.67 Output Total 500 / 500 Balance 240 / 240 1. / 212. General: Awake, Alert, Oriented x 3, Cooperative, No Acute Distress HEENT: Atraumatic, Normocephalic, PERRL, EOMI, Sclera Non Icteric Neck: Supple, Good ROM, No JVD Lungs: Clear to auscultation Cardiovascular: Regular Rhythm, Normal S1, Normal S2 Murmur Murmur: Grade 2/6, Soft, Mid Systolic, LLSB, LVOT Vascular: No Carotid Bruits Abdomen: Bowel Sounds Present, Soft, Non Tender Extremities: No edema Psych/Mental Status: Appropriate 04/15/20 16:02: Magnesium 2.2 04/15/20 16:02: Hemoglobin A1c 5.8 H 04/16/20 05:54: WBC 5.5, RBC 4.19 L, Hgb 12.0, Hct 36.4 L, MCV 86.9, MCH 28.6, MCHC 33.0, Plt Count 216, MPV 8.0, Immature Gran % (Auto) 0.200, Neut % (Auto) 52.3, Lymph % (Auto) 29.6, [place] % (Auto) 11.4 H, Eos % (Auto) 5.4 H, Baso % (Auto) 1.1 H, Absolute Neuts (auto) 2.9, Nucleated RBC % 0 04/16/20 05:54: Sodium 131 L, Potassium 4.0, Chloride 98, Carbon Dioxide 29.0, Anion Gap 4 L, BUN 13, Creatinine 0.74, Est GFR (MDRD) Af Amer 96, Est GFR (MDRD) Non-Af 79, BUN/Creatinine Ratio 17.5, Glucose 99, Calcium 8.9, Total Bilirubin 0.40, Triglycerides 66, Cholesterol 175, LDL Cholesterol 86, VLDL Cholesterol 13, HDL Cholesterol 76 Rhythm: Sinus rhythm EKG: Sinus rhythm ECHO: Interpretation Summary Left ventricular systolic function is normal. The estimated ejection fraction is 65 %. The left atrium is mildly enlarged. Mild diffuse mitral valve thickening. Mild mitral valve prolapse, posterior leaflet Mild (1+) mitral valve insufficiency. Mild tricuspid valve insufficiency. Mild diffuse aortic valve thickening. Trivial aortic valve insufficiency. Trivial pulmonic valve insufficiency. Calcified aortic root. Trivial pericardial effusion. There are no echocardiographic indications of cardiac tamponade. Right ventricular systolic pressure estimated to be 47 mmHg. Diastolic function is indeterminate. Positive agitated saline contrast study for a right to left interatrial shunt compatible with a PFO versus ASD. CXR: Preliminary evaluation: No acute cardiopulmonary disease process appreciated: Please see official report Assessment/Plan 1. Interatrial cardiac shunt The patient does have noninvasive findings on transthoracic echocardiogram compatible with a right to left interatrial shunt compatible with either PFO or ASD. She states that this is not a new finding for her. Her previous [facility] cardiovascular records and echocardiograms are unavailable for review at this time. At the present time she does not appear to have any acute symptomatic or hemodynamic compromise related to this chronic finding. Is also not clear that this is related to her TIA/CVA event. If this were to be pursued further she would have to be considered for a transesophageal echocardiogram to further define her atrial septal anatomy and physiology. Prior to such she would have to go through COVID-19 testing. At the moment as she appears to be symptomatically and hemodynamically stable and her neurologic symptoms are reported is resolved and noting that this is a chronic finding it does not appear that she needs urgent/emergent [facility] for further evaluation. 2. CVA She was reported as having TIA/CVA. She has been evaluated by neurology. She will continue per their recommendations with respect to medical therapy and any concerns with respect to her carotid artery disease. 3. Carotid artery stenosis She does have an element of carotid artery stenosis. Based upon the report available for review it appeared that her stenosis is less than 50% bilaterally. She can have this further evaluated per neurology and peripheral vascular surgery as deemed appropriate. 4. Hyperlipidemia She does have a history of hyperlipidemia. She should continue medical management as deemed appropriate. 5. Hypertension She has a history of hypertension. Her blood pressure will need to be followed with adjustment of medications as needed. Overall the patient appears to be symptomatically and hemodynamically stable at the moment. She can continue with outpatient cardiovascular follow-up as deemed appropriate. She does state that she would prefer to transfer her cardiovascular care locally with [facility] as she no longer wants to drive out of town to have her cardiovascular care performed at remote [place] locations. She would also like to establish local neurology care as well. The above was discussed with the patient and Dr. Hurley of the [facility] hospitalist team. It appears the patient is going to be released home for continued outpatient cardiovascular follow-up, neurology follow-up, and primary care [id number]. This note was generated using a voice recognition system and there may be incorrect words, spelling or punctuation that were not noted when reviewing the office note prior to saving.
== END 2020-04-16 10:11 | disposition home or self-care (01) ==
LOC: ED 17:47 → PCU 18:04
PROVIDERS: Physician Assistant; Admitting Provider Family Medicine; Emergency Provider Student in an Organized Health Care Education/Training Program; PCP Internal Medicine; Visit Provider Internal Medicine
DX: I63.9 Cerebral infarction, unspecified (principal); I10 Essential (primary) hypertension; E78.5 Hyperlipidemia, unspecified; Z79.02 Long term (current) use of antithrombotics/antiplatelets; Z79.899 Other long term (current) drug therapy; Z86.73 Personal history of transient ischemic attack (TIA), and cerebral infarction without residual deficits; R29.700 NIHSS score 0; E87.1 Hypo-osmolality and hyponatremia; M31.5 Giant cell arteritis with polymyalgia rheumatica; K21.9 Gastro-esophageal reflux disease without esophagitis; I08.3 Combined rheumatic disorders of mitral, aortic and tricuspid valves
CPT/HCPCS: 36415; 70450; 70496; 70498; 70551; 71045; 80048; 80053; 80061; 82570; 82962; 83036; 83735; 83935; 84300; 84439; 84443; 84484; 85025; 85610; 85652; 85730; 86140; 93005; 93306; 93880; 94762; 96360; 96361; 96372; 97802; 99218; 99251; 99285; J7030; Q9967; A4216; G0378; G0463

== ENCOUNTER → 2020-05-30 10:38 | Outpatient (CLI) | payer MEDICARE, SELFPAY ==
[2020-05-30 09:31] VITALS: BMI 29.7
[2020-05-30 12:09] LABS: T4 Total, Thyroxin 10.6 ug/dL (4.8-13.9); Thyroid Stim Hormone (TSH) 2.76 uIU/mL (0.358-3.74)
== END ==
PROVIDERS: Internal Medicine Cardiovascular Disease; PCP Internal Medicine; Referring Provider Internal Medicine Cardiovascular Disease; Visit Provider Internal Medicine Cardiovascular Disease
DX: I10 Essential (primary) hypertension (principal); R53.83 Other fatigue; Q21.1 Atrial septal defect; I49.3 Ventricular premature depolarization; I47.2 Ventricular tachycardia; E78.5 Hyperlipidemia, unspecified
CPT/HCPCS: 36415; 84436; 84443

== ENCOUNTER → 2020-06-04 05:51 | Outpatient (CLI) | payer MEDICARE, SELFPAY ==
[2020-05-10 09:34] VITALS: BMI 29.3
[2020-05-30 09:31] VITALS: BMI 29.7
--- NOTE | 2020-06-04 09:51 | STRESSREP ---
Stress Test Report Date: p?15?2019 Procedure: Pharmacologic stress nuclear imaging study Indications: Cardiac dysrhythmias; ventricular ectopy/dysrhythmia Consent: Per the patient Procedure: The patient underwent pharmacologic (Regadenoson) evaluation with a peak heart rate of 103 beats per minute (75 %predicted maximal heart rate) and a peak blood pressure of 166/78 mmHg. The baseline ECG demonstrated sinus rhythm. The peak pharmacologic ECG demonstrated this ECG changes. There was a rare PVC during recovery. There was no complaint of chest discomfort during pharmacologic infusion or recovery. The examination was discontinued secondary to completion of protocol. Impression: 1. Pharmacologic (Regadenoson) evaluation 2. Peak pharmacologic ECG with with no obvious ECG changes. 3. There was a rare PVC during recovery. 4. Nuclear images pending Myocardial perfusion imaging study: Technique: The patient was injected with 11.2 millicuries of technetium 99m Cardiolite and subsequently rest SPECT Cardiolite nuclear imaging was obtained in the horizontal long, vertical long, and short axis views. The patient underwent pharmacologic (Regadenoson) evaluation with a peak heart rate of 103 beats per minute (75 % percent predicted maximal heart rate) and a peak blood pressure of 166/78 mmHg. The patient was injected with 35.8 millicuries of technetium 99m Cardiolite and subsequently stress SPECT Cardiolite nuclear imaging was obtained in the horizontal long, vertical long, and short axis views. A gated Cardiolite study at peak stress was obtained. Interpretation: Rest and stress SPECT Cardiolite nuclear imaging status post realignment, normalization, and attenuation correction demonstrate relative uniform tracer uptake and myocardial perfusion appearing within normal limits. There is end systolic thickening and brightening. The gated Cardiolite study demonstrates myocardial thickening and inward wall motion. The reported LVEF is 35 %. Impression: 1. Rest and stress SPECT Cardiolite nuclear imaging demonstrate relative uniform tracer uptake and myocardial perfusion appearing within normal limits. 2. The gated Cardiolite study reports an LVEF of 35 %. This note was generated with [employer] software. It may contain incorrect words, spelling, and punctuation that were not noted in checking the note before signing.
== END ==
PROVIDERS: PCP Internal Medicine; Referring Provider Internal Medicine Cardiovascular Disease; Visit Provider Internal Medicine Cardiovascular Disease
DX: I49.9 Cardiac arrhythmia, unspecified (principal); I47.2 Ventricular tachycardia; I49.3 Ventricular premature depolarization; I10 Essential (primary) hypertension; R94.31 Abnormal electrocardiogram [ECG] [EKG]
CPT/HCPCS: 78452; 93017; A9500; A4216; J2785

== ENCOUNTER 2020-10-17 09:11 | Outpatient (RCR) | payer MEDICARE, SELFPAY | END 2020-10-17 23:59 | LOC: IMMUN 09:11 | PROVIDERS: PCP Internal Medicine; Visit Provider Family Medicine | DX: Z23 Encounter for immunization (principal) | CPT/HCPCS: 0011A; 0012A; 91301 ==

== ENCOUNTER → 2020-11-07 12:33 | Outpatient (CLI) | payer MEDICARE, SELFPAY ==
--- NOTE | 2020-11-07 12:34 | CDU_ITS ---
Reason For Study: Carotid stenosis Rt. Velocities/BP Lt. Velocities/BP Prox CCA 104.7/9.5 cm/sec. Prox CCA 96/13.5 cm/sec. Mid CCA 79.9/10.8 cm/sec. Mid CCA 86/15.7 cm/sec. Dist CCA 70.8/9.5 cm/sec. Dist CCA 78.3/11.3 cm/sec. Prox ICA 106/14.7 cm/sec. Prox ICA 84.9/11.3 cm/sec. Mid ICA 65.6/13.4 cm/sec. Mid ICA 92.6/19 cm/sec. Dist ICA 78.3/16.8 cm/sec. Dist ICA 79.4/11.3 cm/sec. Rt. ICA/CCA = 1.3. Lt. ICA/CCA = 1.1. Prox ECA 81.2/4.3 cm/sec. Prox ECA 79.4/5.8 cm/sec. Rt. Vert. 43.2/8 cm/sec. Lt. Vert. 46.6/11.6 cm/sec. Right Extracranial There is intimal thickening but no significant atherosclerotic plaque noted in the right common carotid artery. There is heterogeneous, irregular atherosclerotic plaque noted in the right internal carotid artery. There is intimal thickening but no significant atherosclerotic plaque noted in the right external carotid artery. Antegrade flow is noted in the right vertebral artery. Left Extracranial There is heterogeneous, smooth atherosclerotic plaque noted in the left common carotid artery. There is heterogeneous, irregular atherosclerotic plaque noted in the left internal carotid artery. There is heterogeneous, irregular atherosclerotic plaque noted in the left external carotid artery. Antegrade flow is noted in the left vertebral artery. Procedure Carotid Duplex [id number]. This is a Carotid Duplex examination using B-mode, color flow and specral Doppler. Exam performed in department. Interpretation Summary Irregular calcific plaque of the proximal right internal carotid artery with less than 50% stenosis Less than 50% stenosis right external carotid artery Irregular calcific plaque noted within the proximal left internal carotid artery with less than 50% stenosis Less than 50% stenosis left external carotid artery Patent and antegrade vertebrals bilaterally No significant change from the previous examination of April 16, 2020 other than the left vertebral artery flow appears normal today. Ordering Physician: Sinan Mantilla Referring Physician: Martha Hadley M.D. Performed By: Apurva Eddy RVT
== END ==
PROVIDERS: PCP Internal Medicine; Referring Provider Surgery; Visit Provider Surgery
DX: I65.22 Occlusion and stenosis of left carotid artery (principal)
CPT/HCPCS: 93880

== ENCOUNTER 2021-03-19 05:56 | Emergency (ER) | payer MEDICARE, SELFPAY ==
[2021-03-19 05:57] VITALS: BP 157/68; PULSE 88; RESP 18; TEMP 36.6; O2SAT 96; BMI 31.1
--- NOTE | 2021-03-19 06:11 | ED.VIS.GI ---
HPI HPI - GI History of Present Illness Chief Complaint: GI Bleed Narrative Narrative: Patient presents with bright red blood per rectum. She stated she had a long hard bowel movement that hurt. She has had these in the past secondary to constipation. She noticed some bleeding afterwards. This concerned her. She stated she had a history of hemorrhoid in the past remotely but does not know if it was internal or external. She has never had this type of bleeding. Last colonoscopy was several years ago. She is not had any problems otherwise. She laid down for several hours. When she went back to the bathroom twice she noted some bleeding in the bowl which was bright red. This concerned her therefore she came in. She is on a baby aspirin and Plavix. [facility] Medical History (Updated 03/19/21 @ 06:[address] Lucas Augustin MD) Cardiac arrhythmia Carotid stenosis CVA (cerebral vascular accident) HLD (hyperlipidemia) HTN (hypertension) Hyponatremia Interatrial cardiac shunt NSVT (nonsustained ventricular tachycardia) Patent foramen ovale PMR (polymyalgia rheumatica) Premature ventricular contraction Temporal arteritis Home Medications amlodipine 5 mg PO DAILY 12/30/17 [History Last Taken 04/15/20] atenolol 25 tab PO DAILY 12/30/17 [History Last Taken 04/15/20] clopidogrel 75 mg PO DAILY 12/30/17 [History Last Taken 04/15/20] lisinopril 10 mg PO BID 12/30/17 [History Last Taken 04/15/20] omeprazole 20 mg PO DAILY 04/15/20 [History Last Taken 04/15/20] aspirin 81 mg PO DAILY@0800 tab.chew 04/16/20 [Rx Last Taken Unknown] lovastatin 40 mg tablet 40 mg PO QPM 05/30/20 [History Last Taken Unknown] loratadine [Claritin] 10 mg PO DAILY 03/19/21 [History Last Taken Unknown] Allergy/AdvReac Type Severity Reaction Status Date / Time No Known Allergies Allergy Verified 11/12/20 13:00 Family History Mother CVA (cerebral vascular accident) Father Heart disease Myocardial infarction Surgical History History of wisdom tooth extraction Social History Smoking Status: Never smoker alcohol intake: never substance use type: does not use caffeine: No ROS ROS ED ROS Narrative ROS General: Denies fever, chills, sweats Eyes: Denies visual changes, blurred vision, double vision ENT: Denies ear pain, rhinorrhea, sore throat Cardiovascular: Denies chest pain, palpitations, heart racing Respiratory: Denies dyspnea, cough, sputum, dyspnea on exertion, orthopnea,PND GI: See HPI : Denies dysuria, hematuria, frequency Musculoskeletal: Denies myalgias, arthralgias, neck pain, back pain Skin: Denies rash, abscess, abrasions Neuro: Denies headache, weakness, paresthesia Psych: Denies depression, anxiety Endo: Denies polyuria, polydipsia, polyphagia Heme: Denies easy bruising, easy bleeding, lymphadenopathy Allergy: Denies hives, swelling EXAM Physical Exam Narrative Exam Narrative: Vital signs reviewed General: Well-nourished well-developed Head: Normocephalic atraumatic Eyes: Pupils equal round and reactive to light extraocular movements intact ENT: TMs clear no hemotympanum no trauma Neck: Nontender full range of motion Cardiovascular: Regular rate rhythm no murmurs normal S1-S2 Respiratory: No distress clear to auscultation bilaterally chest nontender Abdomen: Soft nontender nondistended normal bowel sounds no masses Rectal exam: Patient has no external ulcerations or tears. No external hemorrhoids. Upon bearing down she has bright red blood per rectum approximately 5 cc. Back: Nontender no CVA tenderness Extremities: Nontender active range of motion ?4 extremities no trauma Skin: Normal color no trauma Neuro alert oriented cranial nerves II through XII intact normal strength sensation reflexes Const Vital Signs: 03/19/21 05:57 Temperature 97.8 F Temperature Source Temporal Pulse Rate 88 Respiratory Rate 18 Blood Pressure 157/68 H Blood Pressure Mean 97 Pulse Ox 96 Oxygen Delivery Method Room Air MDM MDM MDM Narrative Medical decision making narrative: IV inserted. Lab work obtained. CBC normal. Coags negative. On reevaluation resting comfortably with no significant further bleeding. I suspect she had a small bleeding internal hemorrhoid. She had a very hard long bowel movement. I do not feel she needs admitted for this. She will follow-up with Dr. Manley with general surgery. She is going to do MiraLAX. She will return if she worsens Lab Data Labs: Laboratory Results - last 24 hr 03/19/21 03/19/21 06:20 06:20 WBC 11.8 H RBC 4.74 Hgb 12.7 Hct 39.6 MCV 83.5 MCH 26.8 L MCHC 32.1 RDW Std Deviation 42.2 RDW Coeff of Mell 13.8 Plt Count 253 MPV 8.3 Immature Gran % (Auto) 0.300 Neut % (Auto) 83.8 H Lymph % (Auto) 10.5 L [place] % (Auto) 4.7 Eos % (Auto) 0.3 Baso % (Auto) 0.4 Absolute Neuts (auto) 9.9 H Absolute Lymphs (auto) 1.23 Nucleated RBC % 0 PT 12.9 INR 1.0 APTT 29.2 Discharge Plan Triage Chief Complaint: GI Bleed ED Provider: Lucas Augustin Dx/Rx/DC Orders Clinical Impression: Bleeding internal hemorrhoids Instructions: ED Hemorrhoids Prescriptions: No Action lovastatin 40 mg tablet 40 mg PO QPM RF: 0 atenolol 25 MG tablet 25 tab PO DAILY RF: 0 clopidogrel 75 MG tablet 75 mg PO DAILY RF: 0 amlodipine 5 MG tablet 5 mg PO DAILY RF: 0 lisinopril 10 MG tablet 10 mg PO BID RF: 0 omeprazole 20 MG capsule,delayed release(DR/EC) 20 mg PO DAILY RF: 0 aspirin 81 MG tablet,chewable 81 mg PO DAILY@0800 RF: 0 loratadine [Claritin] 10 mg Tablet 10 mg PO DAILY RF: 0 Primary Care Provider: Martha Hadley Referrals: Martha Hadley MD [Primary Care Provider] - Loreta You MD [STAFF PHYSICIAN] - Disposition Disposition: Home, Self Care
[2021-03-19 06:27] LABS: Absolute Lymphocyte Count 1.23 X10^3/uL (0.83-4.51); Absolute Neutrophil Count 9.9 X10^3/uL (2.0-7.7); Basophil# 0.05 X10^3/uL; Basophil% 0.4 % (0-1); Eosinophil# 0.04 X10^3/uL; Eosinophils% 0.3 % (0-5); Hematocrit 39.6 % (37-47); Hemoglobin 12.7 g/dL (12.0-15.0); Lymphocyte # 1.23 X10^3/ul (0.83-4.51); Lymphocyte % 10.5 % (19-41); Mean Corp Hgb Conc 32.1 g/dL (32-36); Mean Corpuscular Hgb 26.8 pg (27.0-32.0); Mean Corpuscular Volume 83.5 fL (81-99); Mean Platelet Vol. 8.3 fl (6.2-12.0); Monocyte# 0.55 X10^3/uL; Monocyte% 4.7 % (0-10); NRBC Flagged by Analyzer 0 % (0-5); Neutrophil # 9.85 X10^3/uL (2.7-7.7); Neutrophil % 83.8 % (47-70); Platelet Count 253 K/mm3 (150-450); RBC Distribution Width CV 13.8 % (11.6-14.6); RBC Distribution Width SD 42.2 fl (35.1-43.9); Red Blood Count 4.74 M/mm3 (4.2-5.4); White Blood Count 11.8 K/mm3 (4.4-11.0)
[2021-03-19 06:36] LABS: Prothrombin Time (Protime)PT. 12.9 SECONDS (11.7-14.9)
[2021-03-19 06:37] LABS: Partial Thromboplast Time 29.2 Seconds (24.1-36.2)
[2021-03-19 06:44] LABS: Anion Gap 10 (5-15); BUN 21 mg/dL (7-18); BUN/Creat Ratio 22.2 RATIO (10-20); Calcium,Total 9.5 mg/dL (8.5-10.1); Chloride 96 mmol/L (98-107); Creatinine, Serum 0.95 mg/dL (0.55-1.02); EST Glomerular Filtration Rate 60 mL/min (>60); Est Glom Filt Rate - Afr Amer 72 mL/min (>60); Estimated Creatinine Clearance 31.66 ml/min; Glucose 132 mg/dL (74-106); Potassium 4.1 mmol/L (3.5-5.1); Sodium Level 132 mmol/L (136-145)
== END 2021-03-19 07:12 | disposition home or self-care (01) ==
LOC: ED 06:46
PROVIDERS: Emergency Provider Emergency Medicine; PCP Internal Medicine
DX: K64.8 Other hemorrhoids (principal); E78.5 Hyperlipidemia, unspecified; I10 Essential (primary) hypertension; M35.3 Polymyalgia rheumatica; Q21.1 Atrial septal defect; Z79.02 Long term (current) use of antithrombotics/antiplatelets; Z79.82 Long term (current) use of aspirin; Z87.19 Personal history of other diseases of the digestive system
CPT/HCPCS: 80048; 85025; 85610; 85730; 99285

== ENCOUNTER 2023-04-23 15:47 | Emergency (ER) | payer MEDICARE, SELFPAY ==
[2023-04-23 15:48] VITALS: BP 142/71; PULSE 86; RESP 18; TEMP 35.9; O2SAT 98; BMI 30.7
--- NOTE | 2023-04-23 16:16 | EKG12_ITS ---
Test Reason : ABN LABS Blood Pressure : / mmHG Vent. Rate : 079 BPM Atrial Rate : 000 BPM P-R Int : 000 ms QRS Dur : 084 ms QT Int : 358 ms P-R-T Axes : 000 049 022 degrees QTc Int : 410 ms Atrial fibrillation Septal infarct , age undetermined Abnormal ECG Confirmed by SUMMER COLEY, HARLEY ([id number]), food expeditor ARIANE DAWSON ([id number]) on 04/26/2023 1:10:03 PM Referred By: Confirmed By:HARLEY WHEELER MD
--- NOTE | 2023-04-23 16:17 | EX.ED.DYSGE1 ---
HPI History of Present Illness Chief Complaint: Abn Labs Informant: patient and family Narrative Narrative: 87-year-old female presenting to the emergency room with abnormal labs and weakness. Patient states that a couple days ago she went and received a shingles vaccination. When she got home she felt fatigued (nonfocal weakness). Yesterday and today she has felt some dyspnea with exertion. She called and made an appointment with her primary care doctor and was seen today. She states an EKG was done in the office that showed atrial fibrillation and she was sent to the [facility] laboratory. She states that she was told that she is hyponatremic and something else was wrong. She does not have any of the paperwork with her or her laboratory values. The patient denies any chest pain. She states that the dyspnea she has been experiencing is with exertion. She denies any chest pain. She denies any change in her chronic lower extremity swelling. She notes that she has had prior stroke and is on Plavix. She is also treated for hypertension, dyslipidemia and seasonal allergies. She denies any recent infections or fevers. No cough. She denies any neurologic deficits. The pain notes that she has been drinking more water than normal because she is felt thirstier than average. [facility] Medical History Cardiac arrhythmia Carotid stenosis CVA (cerebral vascular accident) Essential hypertension HLD (hyperlipidemia) Hyponatremia Interatrial cardiac shunt NSVT (nonsustained ventricular tachycardia) Patent foramen ovale PMR (polymyalgia rheumatica) Premature ventricular contraction Temporal arteritis Home Medications amlodipine 5 mg tablet 5 mg PO DAILY bp 12/30/17 [History Last Taken 04/15/20] atenolol 25 mg tablet 25 tab PO DAILY bp 12/30/17 [History Last Taken 04/15/20] clopidogrel 75 mg tablet 75 mg PO DAILY blood thinner 12/30/17 [History Last Taken 04/15/20] lisinopril 10 mg tablet 10 mg PO BID bp 12/30/17 [History Last Taken 04/15/20] aspirin 81 mg chewable tablet 81 mg PO DAILY@0800 04/16/20 [Rx Last Taken Unknown] lovastatin 40 mg tablet 40 mg PO QPM 05/30/20 [History Last Taken Unknown] cholecalciferol (vitamin D3) 50 mcg (2,000 unit) tablet 50 mcg PO DAILY 07/06/22 [History Last Taken Unknown] loratadine 10 mg tablet (Claritin) 10 mg PO DAILY PRN 07/06/22 [History Last Taken Unknown] Allergy/AdvReac Type Severity Reaction Status Date / Time No Known Allergies Allergy Verified 04/23/23 15:50 Family History Mother CVA (cerebral vascular accident) Father Heart disease Myocardial infarction Surgical History History of wisdom tooth extraction Social History Smoking Status: Never smoker alcohol intake: never substance use type: does not use caffeine: No ROS ROS ED Constitutional Constitutional ED: Reports other Details: Generalized weakness ; Denies chills, fever(s) or weight loss Eyes Eyes: Denies change in vision or diplopia ENT ENT ED: Denies ear pain, rhinorrhea or sore throat Cardiovascular Cardiovascular: Denies chest pain, orthopnea, palpitations or racing heartbeat Respiratory/Chest Respiratory/Chest: Reports dyspnea on exertion; Denies cough or orthopnea Gastrointestinal Gastrointestinal: Denies abdominal pain, diarrhea, nausea or vomiting Genitourinary Genitourinary ED: Denies dysuria, hematuria or urinary frequency Musculoskeletal Musculoskeletal: Denies arthralgias, back pain or myalgias Integumentary Denies abscess or rash Neurologic Neurologic: Denies headache(s), paresthesias or weakness Psychiatric Psychiatric: Denies anxiety, depression, suicidal ideation or suicidal thoughts Endocrine Endocrinology: Denies polydipsia, polyphagia or polyuria Allergic/Immunologic Allergic/Immunologic ED: Denies mouth swelling, tongue swelling or urticaria EXAM Physical Exam Const Vital Signs: 04/23/23 15:48 04/23/23 17:29 04/23/23 17:31 Temperature 96.7 F L Temperature Source Temporal Pulse Rate 86 102 H 76 Respiratory Rate 18 16 Blood Pressure 142/71 H 149/77 H Blood Pressure Mean 94 101 Pulse Ox 98 95 Oxygen Delivery Method Room Air Room Air Positive well nourished and well developed General Appearance ED: well developed HEENT Reports normocephalic, head/scalp atraumatic and moist mucous membranes Eyes PERRL and EOMs intact bilaterally Neck no lymphadenopathy, supple and no JVD Resp normal respiratory effort and clear to auscultation bilaterally Cardio no murmurs GI normal to inspection, nondistended, normoactive bowel sounds and non-tender Palpation: soft Back/Spine no CVA tenderness and normal ROM Extremity Extremity Narrative: Trace edema lower extremities Neuro oriented x3 and CN's II-XII intact bilaterally Sensorium / Orientation: alert Motor Exam: strength 5/5 throughout Psych mental status grossly normal Mood & Affect: Negative for depressed or tearful Skin no rashes or lesions noted and no wounds MDM MDM MDM Narrative Medical decision making narrative: Patient was able to ambulate in the emergency department. She did not become hypoxic and her heart rate increased to 102 but recovered quickly at rest. Patient's chest x-ray was obtained and interpreted myself as no acute process. White count slightly elevated 11.6. Sodium noted to be 126. Potassium 4.2. Magnesium normal at 2.1. Creatinine 0.92. Troponin 18. Beta natruretic peptide 434.1 with a TSH of 2.92. My interpretation of the chest x-ray is atrial fibrillation. I spoke with Dr. Rinaldi from cardiology regarding the patient's case. At this time as she is rate controlled we will not adjust the atenolol. We did discuss anticoagulation and it was felt that full anticoagulation would be held until further evaluation. As far as her hyponatremia this could be multifactorial. She was instructed on 6 to 8 8 ounce glasses of fluids a day. She should have these rechecked in the week. She states she has been scheduled for an echocardiogram and she will be contacted by cardiology the beginning of next week. Patient was advised of reasons to return to the emergency department including but not limited to signs of stroke, dyspnea, chest pain, and syncope. Discussion of labs and medical management was held with family in the room. Lab Data Attestation: I reviewed the patient's lab results. Labs: Laboratory Results - last 24 hr 04/23/23 16:25 WBC 11.6 H RBC 4.24 Hgb 11.9 L Hct 36.4 L MCV 85.8 MCH 28.1 MCHC 32.7 RDW Std Deviation 43.2 RDW Coeff of Mell 13.9 Plt Count 248 MPV 8.7 Immature Gran % (Auto) 0.400 Neut % (Auto) 76.3 H Lymph % (Auto) 12.7 L [place] % (Auto) 9.5 Eos % (Auto) 0.6 Baso % (Auto) 0.5 Absolute Neuts (auto) 8.9 H Absolute Lymphs (auto) 1.47 Nucleated RBC % 0 PT 13.9 INR 1.1 APTT 29.1 Sodium 126 L Potassium 4.2 Chloride 92 L Carbon Dioxide 26.0 Anion Gap 8 BUN 12 Creatinine 0.92 Estim Creat Clear Calc 31.53 Est GFR (MDRD) Af Amer 74 Est GFR (MDRD) Non-Af 61 BUN/Creatinine Ratio 13.0 Glucose 164 H Calcium 9.2 Magnesium 2.1 Total Bilirubin 0.40 AST 12 L ALT 17 Alkaline Phosphatase 67 Troponin I High Sens 18 B-Natriuretic Peptide 434.1 H Total Protein 7.5 Albumin 3.5 Globulin 4.0 Albumin/Globulin Ratio 0.9 TSH 2.92 Radiography Diagnostic Testing: Clinical Impression(s) from Imaging Studies Chest X-Ray 04/23/23 16:35 IMPRESSION: No radiographic evidence of acute cardiopulmonary disease. Electronically Signed: Justice Lundberg MD at 17:04 EDT Reading Location ID and State: [facility] / [place] , Service support , Discharge Plan Triage Chief Complaint: Abn Labs ED Provider: Sunil Omalley Dx/Rx/DC Orders Clinical Impression: Hyponatremia, Essential hypertension, Atrial fibrillation, new onset Instructions: AFib Prescriptions: No Action lovastatin 40 mg tablet 40 mg PO QPM cholecalciferol (vitamin D3) 50 mcg (2,000 unit) tablet 50 mcg PO DAILY atenolol 25 MG tablet 25 tab PO DAILY Patient Comments: clopidogrel 75 MG tablet 75 mg PO DAILY Patient Comments: amlodipine 5 MG tablet 5 mg PO DAILY Patient Comments: lisinopril 10 MG tablet 10 mg PO BID Patient Comments: aspirin 81 MG tablet,chewable 81 mg PO DAILY@0800 0RF loratadine [Claritin] 10 mg tablet 10 mg PO DAILY PRN Primary Care Provider: Martha Hadley Referrals: Norberto Rinaldi MD [Med Staff - Active Staff] - As soon as possible Martha Hadley MD [Primary Care Provider] - 1 Week Disposition Disposition: Home, Self Care
--- NOTE | 2023-04-23 16:35 | RAD_ITS ---
EXAM: XR CHEST, 1 VIEW CLINICAL INDICATION: dyspnea TECHNIQUE: Frontal view of the chest. COMPARISON: 7.27.20 FINDINGS: LUNGS AND PLEURAL SPACES: Unremarkable. No consolidation or edema. No pneumothorax. No effusion. HEART: Unremarkable. Cardiac silhouette not enlarged. MEDIASTINUM: Central airways and mediastinal contour are unremarkable. BONES/JOINTS: Unremarkable. SOFT TISSUES: Unremarkable. RAD/Chest 1 View (Portable) IMPRESSION: No radiographic evidence of acute cardiopulmonary disease. Electronically Signed: Justice Lundberg MD at 17:04 EDT ,
[2023-04-23 16:37] LABS: Absolute Lymphocyte Count 1.47 X10^3/uL (0.83-4.51); Absolute Neutrophil Count 8.9 X10^3/uL (2.0-7.7); Basophil# 0.06 X10^3/uL; Basophil% 0.5 % (0-1); Eosinophil# 0.07 X10^3/uL; Eosinophils% 0.6 % (0-5); Hematocrit 36.4 % (37-47); Hemoglobin 11.9 g/dL (12.0-15.0); Lymphocyte # 1.47 X10^3/ul (0.83-4.51); Lymphocyte % 12.7 % (19-41); Mean Corp Hgb Conc 32.7 g/dL (32-36); Mean Corpuscular Hgb 28.1 pg (27.0-32.0); Mean Corpuscular Volume 85.8 fL (81-99); Mean Platelet Vol. 8.7 fl (6.2-12.0); Monocyte% 9.5 % (0-10); NRBC Flagged by Analyzer 0 % (0-5); Neutrophil # 8.85 X10^3/uL (2.7-7.7); Neutrophil % 76.3 % (47-70); Platelet Count 248 K/mm3 (150-450); RBC Distribution Width CV 13.9 % (11.6-14.6); RBC Distribution Width SD 43.2 fl (35.1-43.9); Red Blood Count 4.24 M/mm3 (4.2-5.4); White Blood Count 11.6 K/mm3 (4.4-11.0)
[2023-04-23 16:52] LABS: International Normalized Ratio 1.1; Prothrombin Time (Protime)PT. 13.9 SECONDS (11.7-14.9)
[2023-04-23 16:54] LABS: Partial Thromboplast Time 29.1 Seconds (24.1-36.2)
[2023-04-23 16:57] LABS: BNP,B-Type NATRIURETIC PEPTIDE 434.1 pg/mL (0-100)
[2023-04-23 17:06] LABS: ALB/GLOB Ratio 0.9 RATIO (0.9-2.4); AST(SGOT) 12 U/L (15-37); Alanine Aminotransfer ALT/SGPT 17 U/L (13-56); Albumin, Serum 3.5 g/dL (3.2-5.0); Alkaline Phosphatase 67 U/L (45-117); Anion Gap 8 (5-15); BUN 12 mg/dL (7-18); Calcium,Total 9.2 mg/dL (8.5-10.1); Chloride 92 mmol/L (98-107); Creatinine, Serum 0.92 mg/dL (0.55-1.02); EST Glomerular Filtration Rate 61 mL/min (>60); Est Glom Filt Rate - Afr Amer 74 mL/min (>60); Estimated Creatinine Clearance 31.53 ml/min; Glucose 164 mg/dL (74-106); Magnesium 2.1 mg/dL (1.6-2.6); Potassium 4.2 mmol/L (3.5-5.1); Protein, Total 7.5 g/dL (6.4-8.2); Sodium Level 126 mmol/L (136-145); Thyroid Stim Hormone (TSH) 2.92 uIU/mL (0.358-3.74); Troponin-I HS 18 pg/mL (3.0-54.0)
[2023-04-23 17:29] VITALS: BP 149/77; PULSE 102; RESP 16; O2SAT 95
[2023-04-23 17:31] VITALS: PULSE 76
== END 2023-04-23 18:30 | disposition home or self-care (01) ==
PROVIDERS: Emergency Provider Emergency Medicine; PCP Internal Medicine; Visit Provider Emergency Medicine
DX: E87.1 Hypo-osmolality and hyponatremia (principal); I48.91 Unspecified atrial fibrillation; J30.2 Other seasonal allergic rhinitis; E78.5 Hyperlipidemia, unspecified; I10 Essential (primary) hypertension; Z79.899 Other long term (current) drug therapy; Z79.02 Long term (current) use of antithrombotics/antiplatelets; Z79.82 Long term (current) use of aspirin
CPT/HCPCS: 71045; 80053; 83735; 83880; 84443; 84484; 85025; 85610; 85730; 93005; 99282; A4216

== ENCOUNTER → 2023-05-31 | Outpatient (CLI) | payer MEDICARE, SELFPAY ==
--- NOTE | 2023-05-31 14:57 | ECHOD_ITS ---
Reason For Study: Afib Procedure This was a 2D Doppler, Color Flow transthoracic echocardiogram. Exam performed in department. Left Ventricle Normal LV size. Left ventricular systolic function is normal. The estimated ejection fraction is 65 %. Stage 1 diastolic dysfunction. No regional wall motion abnormalities noted. Right Ventricle Normal RV size. Normal systolic function. Atria The left atrium is mildly enlarged. Normal right atrium. Patent foramen ovale. Mitral Valve Normal mitral valve. Mild (1+) eccentric mitral valve insufficiency. Tricuspid Valve Normal tricuspid valve. Mild (1+) tricuspid valve insufficiency. Pulmonary artery systolic pressure is 40 mmHg. Aortic Valve Trisinus/trileaflet aortic valve. Mild (1+) aortic valve insufficiency. Pulmonic Valve Normal pulmonic valve. Great Vessels Normal aortic root. The pulmonary artery is normal size. Normal inferior vena cava. Pericardium/Pleural No pericardial effusion. MMode/2D Measurements & Calculations LVIDd: 4.1 cm IVSd: 1.0 cm Ao root diam: 2.8 cm LVIDs: 2.7 cm LVPWd: 0.91 cm LA dimension: 4.6 cm RVDd: 4.3 cm FS: 34.3 % LAV(MOD-bp): 60.3 ml LVAd ap4: 19.2 cm2 SV(MOD-sp4): 32.8 ml LAV(MOD-bp) Indexed: 36.2 ml/m2 LVLd ap4: 6.1 cm LAV(MOD-sp2): 56.7 ml EDV(MOD-sp4): 50.2 ml LAV(MOD-sp4): 62.7 ml EDV(sp4-el): 51.4 ml LVAs ap4: 10.2 cm2 LVLs ap4: 5.1 cm ESV(MOD-sp4): 17.3 ml ESV(sp4-el): 17.3 ml EF(MOD-sp4): 65.4 % EF(sp4-el): 66.4 % SV(sp4-el): 34.1 ml LA A4 area: 21.6 cm2 RA A4 area: 15.7 cm2 TAPSE: 2.0 cm Time Measurements MV dec time: 0.23 sec Doppler Measurements & Calculations MV E max eliot: 52.2 cm/sec Lat Peak E' Eliot: 6.6 cm/sec Med Peak E' Eliot: 3.9 cm/sec MV A max eliot: 70.8 cm/sec E/E' lat: 8.0 E/E' med: 13.4 MV E/A: 0.74 MV V2 max: 81.6 cm/sec MV P1/2t max eliot: 58.2 cm/sec Ao V2 max: 130.5 cm/sec MV max P.7 mmHg MV P1/2t: 65.2 msec Ao max P.8 mmHg MV V2 mean: 41.5 cm/sec MV dec slope: 261.1 cm/sec2 Ao V2 mean: 91.2 cm/sec MV mean P.83 mmHg Ao mean P.8 mmHg MV V2 VTI: 19.0 cm MVA(P1/2t): 3.4 cm2 Ao V2 VTI: 31.5 cm AI max eliot: 379.3 cm/sec LV V1 max: 74.5 cm/sec MR max eliot: 579.1 cm/sec AI max P.6 mmHg LV V1 max P.2 mmHg MR max P.1 mmHg AI dec slope: 344.3 cm/sec2 MR mean eliot: 456.4 cm/sec AI P1/2t: 322.7 msec MR mean P.7 mmHg MR VTI: 164.8 cm PA V2 max: 101.0 cm/sec TR max eliot: 307.7 cm/sec TR max P.9 mmHg ECHO/Echo Complete Interpretation Summary Normal LV size. Left ventricular systolic function is normal. The estimated ejection fraction is 65 %. Stage 1 diastolic dysfunction. The left atrium is mildly enlarged. Mild (1+) aortic valve insufficiency. Mild (1+) eccentric mitral valve insufficiency. Ordering Physician: Dhara Oneal Referring Physician: Dhara Oneal Performed By: Joshua Bustos RCS
== END | disposition home or self-care (01) ==
LOC: CVS 14:55
PROVIDERS: PCP Internal Medicine; Referring Provider Physician Assistant Medical; Visit Provider Physician Assistant Medical
DX: I49.3 Ventricular premature depolarization (principal)
CPT/HCPCS: 93306

== ENCOUNTER 2024-01-17 18:22 | Emergency (ER) | payer MEDICARE, SELFPAY ==
[2024-01-17 18:23] VITALS: BP 159/68; PULSE 91; RESP 18; TEMP 36.4; O2SAT 96
--- NOTE | 2024-01-17 18:42 | CT_ITS ---
INDICATION: head injury, [place] EXAMINATION: CT BRAIN - CT Head or Brain W/O Contrast Injection TECHNIQUE: Multiple axial images were obtained of the head without intravenous contrast. A radiation dose optimization technique was used for this scan. IV Contrast dosage and agent: None. COMPARISON: None. FINDINGS: BRAIN PARENCHYMA: No intra- or extra-axial hemorrhage. No evidence of acute infarct. No intracranial mass or mass effect. There is preservation of the dan/white matter interface. Posterior fossa structures are unremarkable. Volume loss with low attenuation of the periventricular white matter typical of chronic small vessel disease. CSF SPACES: Appropriate for age. No hydrocephalus. Basal cisterns are patent. CALVARIUM, SKULL BASE, PARANASAL SINUSES AND MASTOID AIR CELLS: Pansinusitis. No acute fracture. CT/Brain/Head without Contrast IMPRESSION: Volume loss with chronic white matter changes. No acute intracranial findings. Electronically Signed: Teodoro Willis MD at 20:17 EDT ,
--- NOTE | 2024-01-17 18:42 | CT_ITS ---
INDICATION: Trauma, fall, neck pain EXAMINATION: CT CERVICAL SPINE - CT Spine Cervical W/O Contrast Injection TECHNIQUE: Helically acquired images were obtained of the cervical spine. 2D reformatted images were reviewed. A radiation dose optimization technique was used for this scan. IV Contrast dosage and agent: None. COMPARISON: None. FINDINGS: VERTEBRAE: No acute fracture of the cervical spine. 2 mm spondylolisthesis C3-4, 3 mm spondylolisthesis C6-7. DISCS and SPINAL CANAL: Degenerative discogenic changes. No critical stenosis. NECK SOFT TISSUES: No prevertebral soft tissue swelling. LUNG APICES: No acute pulmonary findings. CT/Spine Cervical without Contras IMPRESSION: Degenerative changes. No acute fracture of the cervical spine. Electronically Signed: Teodoro Willis MD at 20:13 EDT ,
--- NOTE | 2024-01-17 18:51 | EDS_ITS ---
HPI <ENOC Abel - Last Filed: 01/17/24 22:06> History of Present Illness Chief Complaint: Fall Narrative Narrative: Patient presenting today due to a fall that took place this evening. She reports that [place] the [place], she was walking outside in the parking lot afterwards and lost her balance, falling backwards and hitting her left side and head on the ground. There was no LOC, she is on Eliquis due to a history of A-fib. She reports pain to her right ankle and right foot. She was able to take a few steps afterwards but it was painful. She has a small abrasion to her left wrist, tetanus is not up-to-date. She reports slight neck discomfort as well. PFSH <ENOC Abel - Last Filed: 01/17/24 22:06> [facility] Medical History Cardiac arrhythmia Carotid stenosis CVA (cerebral vascular accident) Essential hypertension HLD (hyperlipidemia) Hyponatremia Interatrial cardiac shunt NSVT (nonsustained ventricular tachycardia) Patent foramen ovale PMR (polymyalgia rheumatica) Premature ventricular contraction Temporal arteritis Home Medications amlodipine 5 mg tablet 5 mg PO DAILY bp 12/30/17 [History Last Taken 04/15/20] atenolol 25 mg tablet 25 tab PO DAILY bp 12/30/17 [History Last Taken 04/15/20] lovastatin 40 mg tablet 40 mg PO QPM 05/30/20 [History Last Taken Unknown] cholecalciferol (vitamin D3) 50 mcg (2,000 unit) tablet 50 mcg PO DAILY 07/06/22 [History Last Taken Unknown] loratadine 10 mg tablet (Claritin) 10 mg PO DAILY PRN 07/06/22 [History Last Taken Unknown] apixaban 5 mg tablet (Eliquis) 5 mg PO BID #180 tabs 05/03/23 [Rx Last Taken Unknown] losartan 25 mg tablet 25 mg PO DAILY 06/16/23 [History Last Taken Unknown] oxycodone 5 mg tablet 5 mg PO Q6H 3 days #10 tabs 01/17/24 [Rx Last Taken Unknown] Allergy/AdvReac Type Severity Reaction Status Date / Time No Known Allergies Allergy Verified 01/17/24 18:23 Family History Mother CVA (cerebral vascular accident) Father Heart disease Myocardial infarction Surgical History History of wisdom tooth extraction Social History Smoking Status: Never smoker alcohol intake: never substance use type: does not use caffeine: No ROS <ENOC Abel - Last Filed: 01/17/24 22:06> ROS ED Constitutional Constitutional ED: Denies chills or fever(s) Eyes Eyes: Denies change in vision Cardiovascular Cardiovascular: Denies chest pain or palpitations Respiratory/Chest Respiratory/Chest: Denies cough or dyspnea Gastrointestinal Gastrointestinal: Denies abdominal pain, nausea or vomiting Musculoskeletal Musculoskeletal: Reports arthralgias and neck pain; Denies back pain or myalgias Integumentary Denies abscess, Abrasions or rash Neurologic Neurologic: Denies headache(s), paresthesias or weakness EXAM <ENOC Abel - Last Filed: 01/17/24 22:06> Physical Exam Const Vital Signs: 01/17/24 18:23 01/17/24 20:32 Temperature 97.5 F L Temperature Source Temporal Pulse Rate 91 Respiratory Rate 18 Respiratory Effort Normal Respiratory Depth Normal Respiratory Pattern Normal Blood Pressure 159/68 H Blood Pressure Mean 98 Pulse Ox 96 Oxygen Delivery Method Room Air Room Air Positive well nourished, well developed and no apparent distress General Appearance ED: well developed HEENT Reports normocephalic and head/scalp atraumatic Mouth ED: Yes moist mucous membranes normal Eyes PERRL and EOMs intact bilaterally Neck full ROM and supple Neck Narrative: Slight midline tenderness to the base of the neck. Chest Wall inspection of chest normal Resp normal respiratory effort and clear to auscultation bilaterally Cardio regular rate and regular rhythm GI soft to palpation, non-tender, non-distended and no masses Back/Spine normal ROM and normal to inspection Extremity Extremity Narrative: Minimal edema and generalized pain to palpation to the left knee with full ROM Pain to the right lateral malleolus and to the head of the fifth metatarsal, limited range of motion to the right ankle due to pain. Right DP pulse 2+, good capillary refill, sensation intact. No proximal fibular tenderness. Neuro oriented x3, CN's II-XII intact bilaterally, moves all extremities, no focal motor deficits and no sensory deficits noted Sensorium / Orientation: awake and alert Psych mental status grossly normal and thought process normal Skin Skin Narrative: Small superficial 0.5 cm abrasion to the left volar wrist <Dr. Christopher Alatorre DO - Last Filed: 01/17/24 23:32> Physical Exam Const Vital Signs: 01/17/24 18:23 01/17/24 20:32 Temperature 97.5 F L Temperature Source Temporal Pulse Rate 91 Respiratory Rate 18 Respiratory Effort Normal Respiratory Depth Normal Respiratory Pattern Normal Blood Pressure 159/68 H Blood Pressure Mean 98 Pulse Ox 96 Oxygen Delivery Method Room Air Room Air MDM <ENOC Abel - Last Filed: 01/17/24 22:06> MDM MDM Narrative Medical decision making narrative: Patient presenting due to a mechanical fall that occurred this evening. She is well-appearing and in no acute distress. She did hit her head, she is on Eliquis. Head CT will be obtained to rule out intracranial bleed, cervical spine CT will be obtained to rule out fracture. X-ray of the left knee, right foot, and right ankle will be obtained to rule out fracture. She will be given Tylenol for pain. Patient does have a fracture to the base of the fifth metatarsal. She also has a right ankle sprain. All other imaging negative for acute findings. I did speak with Dr. Varela who recommends either a postop shoe or walking boot which ever patient tolerates best. Patient tolerated the postop shoe better and was able to ambulate. I did offer additional analgesia, she declines. She will be given a prescription for [place]. RICE instructions given, she will be given a podiatry referral. She will be discharged home in stable condition. Radiography X-Ray: Read by ED Physician Diagnostic Testing: Clinical Impression(s) from Imaging Studies Brain CT 01/17/24 18:42 IMPRESSION: Volume loss with chronic white matter changes. No acute intracranial findings. Electronically Signed: Teodoro Willis MD at 20:17 EDT , Cervical Spine CT 01/17/24 18:42 IMPRESSION: Degenerative changes. No acute fracture of the cervical spine. Electronically Signed: Teodoro Willis MD at 20:13 EDT , Ankle X-Ray 01/17/24 20:14 IMPRESSION: Mild bimalleolar sprain . Acute fracture of the base of the fifth metatarsal. Electronically Signed: Slava Arita MD at 20:42 EDT , Foot X-Ray 01/17/24 20:14 IMPRESSION: Acute fracture of the base of the fifth metatarsal. Electronically Signed: Slava Arita MD at 20:39 EDT , Knee X-Ray 01/17/24 20:14 IMPRESSION: Mild degenerative changes. Subchondral sclerosis of the lateral femoral and tibial condyles possibly representing bone contusions No acute fracture or other significant bony pathology Electronically Signed: Slava Arita MD at 20:41 EDT , <Dr. Christopher Aaltorre, DO - Last Filed: 01/17/24 23:32> [facility] MDM Narrative Medical decision making narrative: Patient presenting due to a mechanical fall that occurred this evening. She is well-appearing and in no acute distress. She did hit her head, she is on Eliquis. Head CT will be obtained to rule out intracranial bleed, cervical spine CT will be obtained to rule out fracture. X-ray of the left knee, right foot, and right ankle will be obtained to rule out fracture. She will be given Tylenol for pain. Patient does have a fracture to the base of the fifth meta tarsal. She also has a right ankle sprain. All other imaging negative for acute findings. I did speak with Dr. Varela who recommends either a postop shoe or walking boot which ever patient tolerates best. Patient tolerated the postop shoe better and was able to ambulate. I did offer additional analgesia, she declines. She will be given a prescription for [place]. RICE instructions given, she will be given a podiatry referral. She will be discharged home in stable condition. This patient was seen with a PA/INTERIOR DESIGN PROFESSOR Individually assessed they patient including history and physical. I have reviewed everything on the chart that is available and agree with the documentation provided by the PA/INTERIOR DESIGN PROFESSOR including discussion about the assessment, treatment plan, discussion, and return precautions. Patient had mechanical fall. Ultimately her images are all okay except for she has an old ankle fracture which is not new on my interpretation. She also has a base of the fifth metatarsal fracture. Right knee x-ray my interpretation 4 views shows no acute fracture. Radiology interprets these and agrees. CT brain and cervical spine are negative. Initially we tried to put her in a walking boot but it was too heavy. She wished to have a postop shoe. This was okay per podiatry. She was able to ambulate with a walker and she is stable. Family feels comfortable taking her home. She is given pain medicine prior to discharge. Radiography Diagnostic Testing: Clinical Impression(s) from Imaging Studies Brain CT 01/17/24 18:42 IMPRESSION: Volume loss with chronic white matter changes. No acute intracranial findings. Electronically Signed: Teodoro Willis MD at 20:17 EDT Reading Location ID and State: [facility] / [place] Tel , Service support , Cervical Spine CT 01/17/24 18:42 IMPRESSION: Degenerative changes. No acute fracture of the cervical spine. Electronically Signed: Teodoro Willis MD at 20:13 EDT , Ankle X-Ray 01/17/24 20:14 IMPRESSION: Mild bimalleolar sprain . Acute fracture of the base of the fifth metatarsal. Electronically Signed: Slava Arita MD at 20:42 EDT , Foot X-Ray 01/17/24 20:14 IMPRESSION: Acute fracture of the base of the fifth metatarsal. Electronically Signed: Slava Arita MD at 20:39 EDT , Knee X-Ray 01/17/24 20:14 IMPRESSION: Mild degenerative changes. Subchondral sclerosis of the lateral femoral and tibial condyles possibly representing bone contusions No acute fracture or other significant bony pathology Electronically Signed: Slava Arita MD at 20:41 EDT , Discharge Plan Triage Chief Complaint: Fall ED Midlevel Provider: Arely Carrington ED Provider: Christopher Alatorre Dx/Rx/DC Orders Clinical Impression: Left knee pain, Cervical strain, Head injury, Foot fracture, right, Fall, Right ankle sprain Instructions: ED Fracture, Foot, ED Head Injury (Adult) Prescriptions: New oxycodone 5 mg tablet 5 mg PO Q6H 3 Days Qty: 10 0RF No Action lovastatin 40 mg tablet 40 mg PO QPM cholecalciferol (vitamin D3) 50 mcg (2,000 unit) tablet 50 mcg PO DAILY Eliquis 5 mg tablet 5 mg PO BID Qty: 180 3RF losartan 25 mg tablet 25 mg PO DAILY atenolol 25 MG tablet 25 tab PO DAILY Patient Comments: amlodipine 5 MG tablet 5 mg PO DAILY Patient Comments: loratadine [Claritin] 10 mg tablet 10 mg PO DAILY PRN Primary Care Provider: Martha Hadley Referrals: Sunil Varela DPM [Med Staff - Active Staff] - 5-7 Days Martha Hadley MD [Primary Care Provider] - Activity Restrictions/Additional Instructions: Ice your foot several times a day for the next few days for 20 minutes at a time. Keep your foot elevated when you are sitting/lying down. Follow-up with podiatry. You can take Tylenol as needed for your pain. I have also prescribed you oxycodone to use for breakthrough pain every 6 hours as needed. Disposition Disposition: Home, Self Care Discharge Date/Time: 01/17/24 22:52
[2024-01-17] MEDS: Acetaminophen 325 MG Tablet 650 MG PO (19:27)
[2024-01-17] MEDS: Diphth,Pertuss(Acell),Tet Vac 0.5 ML Vial IM (19:44)
--- NOTE | 2024-01-17 20:14 | RAD_ITS ---
STUDY: X-RAY - LEFT KNEE REASON FOR EXAM: Female, 88 years old. injury TECHNIQUE: 3 view(s) of the knee. COMPARISON: None. FINDINGS: Mildly increased sclerosis of the distal lateral femoral condyle and proximal lateral tibial condyle. Normal visualized proximal tibia and fibula. Normal proximal tibiofibular articulation. Normal medial femorotibial compartment. Narrowed lateral femorotibial compartment. Normal patellofemoral articulation. The soft tissue structures are unremarkable. RAD/Knee 3 Views IMPRESSION: Mild degenerative changes. Subchondral sclerosis of the lateral femoral and tibial condyles possibly representing bone contusions No acute fracture or other significant bony pathology Electronically Signed: Slava Arita MD at 20:41 EDT ,
--- NOTE | 2024-01-17 20:14 | RAD_ITS ---
STUDY: X-RAY - RIGHT FOOT CLINICAL: Female, 88 years old. pain TECHNIQUE: 3 view(s) of the foot. COMPARISON: None. FINDINGS: Normal talus, calcaneus, and tarsal bones. Normal visualized subtalar, talonavicular, calcaneocuboid, tarsal and tarsometatarsal articulations. There is an acute minimally displaced fracture base of the fifth metatarsal Normal metatarsophalangeal joint of the great toe. Normal tibial and fibular sesamoid bones. Normal interphalangeal joint of the great toe. Normal phalanges of the great toe. Normal second through fifth metatarsophalangeal joints. Normal interphalangeal joints and phalanges of the lesser toes. The soft tissue structures are unremarkable. RAD/Foot min 3 Views IMPRESSION: Acute fracture of the base of the fifth metatarsal. Electronically Signed: Slava Arita MD at 20:39 EDT ,
--- NOTE | 2024-01-17 20:14 | RAD_ITS ---
STUDY: X-RAY - RIGHT ANKLE REASON FOR EXAM: Female, 88 years old. pain TECHNIQUE: 3 view(s) of the ankle. COMPARISON: None. FINDINGS: Normal visualized distal tibia and fibula. Normal medial and lateral malleoli. Normal tibiotalar articulation and ankle mortise. Normal visualized talus and calcaneus. The visualized subtalar, talonavicular, calcaneocuboid and tarsal articulations are normal. Transverse fracture through the cortex of the proximal fifth metatarsal with minor separation of fracture fragments Mild bimalleolar soft tissue swelling RAD/Ankle min 3 Views IMPRESSION: Mild bimalleolar sprain . Acute fracture of the base of the fifth metatarsal. Electronically Signed: Slava Arita MD at 20:42 EDT ,
[2024-01-17 20:31] VITALS: BMI 31.3
== END 2024-01-17 22:52 | disposition home or self-care (01) ==
PROVIDERS: Emergency Provider Student in an Organized Health Care Education/Training Program; PCP Internal Medicine; Visit Provider Student in an Organized Health Care Education/Training Program
DX: S92.351A Displaced fracture of fifth metatarsal bone, right foot, initial encounter for closed fracture (principal); I48.91 Unspecified atrial fibrillation; S09.90XA Unspecified injury of head, initial encounter; Y92.481 Parking lot as the place of occurrence of the external cause; S93.401A Sprain of unspecified ligament of right ankle, initial encounter; S16.1XXA Strain of muscle, fascia and tendon at neck level, initial encounter; W18.39XA Other fall on same level, initial encounter; Y93.01 Activity, walking, marching and hiking; Z79.01 Long term (current) use of anticoagulants; Z86.73 Personal history of transient ischemic attack (TIA), and cerebral infarction without residual deficits; I10 Essential (primary) hypertension; E78.5 Hyperlipidemia, unspecified; Z79.899 Other long term (current) drug therapy; M25.562 Pain in left knee
CPT/HCPCS: 70450; 72125; 73562; 73610; 73630; 90471; 99283

== ENCOUNTER 2024-02-18 14:06 | Observation (INO) | payer MEDICARE, SELFPAY ==
[2024-02-18] VITALS (8 sets, daily range): BP systolic 134–160; BP diastolic 66–76; PULSE 62–80; RESP 12–18; TEMP 35.6–36.4; O2SAT 94–98; BMI 30.1; BMI 30.2; BMI 29.5
--- NOTE | 2024-02-18 14:14 | EKG12_ITS ---
Test Reason : NEURO Blood Pressure : / mmHG Vent. Rate : 075 BPM Atrial Rate : 075 BPM P-R Int : 260 ms QRS Dur : 088 ms QT Int : 370 ms P-R-T Axes : 042 041 048 degrees QTc Int : 413 ms Sinus rhythm with 1st degree A-V block Otherwise normal ECG Confirmed by SUMMER COLEY, HARLEY ([id number]), associate editor KIM GURROLA ([id number]) on 02/21/2024 6:50:07 AM Referred By: Confirmed By:HARLEY WHEELER MD
--- NOTE | 2024-02-18 14:15 | CT_ITS ---
STUDY: CTA HEAD AND NECK WITH CONTRAST REASON FOR EXAM: Female, 88 years old. Neuro deficit, acute, stroke suspected RADIATION DOSAGE (If Supplied By Facility): CTDIvol = ( 27.74 ) mGy, DLP = ( 1371.40 ) mGycm TECHNIQUE: CT angiography was performed with a multi-detector CT scanner. Data acquisition was obtained from the skull base through the vertex following intravenous administration of IV 100mL [id number]-[id number]. MIP images were reconstructed from the axial data set. Post-processing of the angiographic images was performed, with multiplanar reformation and 3D reconstruction. Individualized dose optimization techniques were used for this CT. COMPARISON: No relevant priors. FINDINGS: Normal bilateral petrous carotid arteries. There is calcified plaque formation of the right cavernous carotid artery, without a cross-sectional luminal stenosis. There is calcified plaque formation of the left cavernous carotid artery, with a mild stenosis (less than 50%). Normal right A1 segments of the anterior cerebral artery. Normal left A1 segments of the anterior cerebral artery. Normal intact anterior communicating artery (ACOM). Normal bilateral A2 segments of the anterior cerebral arteries. Normal right M1 and M2 segments of the middle cerebral arteries, with a normal M1 bifurcation. Normal left M1 and M2 segments of the middle cerebral arteries, with a normal M1 bifurcation. Normal right posterior communicating artery (PCOM). Normal left posterior communicating artery (PCOM). Normal bilateral vertebral arteries. Normal basilar artery with a normal basilar bifurcation. The visualized bilateral superior cerebellar (SCA) arteries are normal. Normal bilateral P1, P2 and visualized P3 segments of the posterior cerebral arteries. There is no demonstrated aneurysm of the three affiliated of [place]. There is no demonstrated abnormality of the visualized brain. AORTIC ARCH: There is atherosclerotic calcific plaque formation of the aortic arch and great vessels arising from the aortic arch, without a hemodynamically significant stenosis. There is a normal origin of the brachiocephalic, left common carotid, and left subclavian arteries. RIGHT CAROTID ARTERIES: There is atherosclerotic tortuous elongation of the right common carotid artery. There is mild atherosclerotic plaque formation with minimal narrowing of the right carotid bulb. There is mild atherosclerotic plaque formation of the origin of the right internal carotid artery with less than 50% cross sectional diameter stenosis. There is atherosclerotic tortuous elongation of the cervical portion of the right internal carotid artery. Normal origin of the right external carotid artery (ECA). LEFT CAROTID ARTERIES: There is atherosclerotic tortuous elongation of the left common carotid artery. There is extensive atherosclerotic plaque formation with moderate narrowing of the carotid bulb with a hemodynamically significant stenosis. There is severe atherosclerotic plaque formation of the origin of the left internal carotid artery with an estimated stenosis of 50-69% stenosis. There is atherosclerotic tortuous elongation of the cervical portion of the left internal carotid artery. Normal origin of the left external carotid artery (ECA). VERTEBRAL ARTERIES: Normal bilateral vertebral arteries. CT/CTA Head AND Neck W/ Contrast IMPRESSION: No acute abnormality. No large vessel occlusion. Prominent calcified plaque of both carotid bulbs worse on the left. Mild grade stenosis of left ICA. Moderate grade stenosis of the right ICA. Electronically Signed: Virgilio Yates MD at 16:30 EDT ,
[2024-02-18 14:39] LABS: Absolute Lymphocyte Count 1.18 X10^3/uL (0.83-4.51); Absolute Neutrophil Count 7.5 X10^3/uL (2.0-7.7); Basophil# 0.08 X10^3/uL; Basophil% 0.8 % (0-1); Eosinophil# 0.11 X10^3/uL; Eosinophils% 1.2 % (0-5); Hematocrit 41.3 % (37-47); Hemoglobin 13.5 g/dL (12.0-15.0); Lymphocyte # 1.18 X10^3/ul (0.83-4.51); Lymphocyte % 12.4 % (19-41); Mean Corp Hgb Conc 32.7 g/dL (32-36); Mean Corpuscular Volume 85.7 fL (81-99); Mean Platelet Vol. 8.4 fl (6.2-12.0); Monocyte# 0.55 X10^3/uL; Monocyte% 5.8 % (0-10); NRBC Flagged by Analyzer 0 % (0-5); Neutrophil # 7.54 X10^3/uL (2.7-7.7); Neutrophil % 79.5 % (47-70); Platelet Count 260 K/mm3 (150-450); RBC Distribution Width CV 13.8 % (11.6-14.6); RBC Distribution Width SD 43.3 fl (35.1-43.9); Red Blood Count 4.82 M/mm3 (4.2-5.4); White Blood Count 9.5 K/mm3 (4.4-11.0)
[2024-02-18 14:41] LABS: Bedside Glucose 120 mg/dL (74-106)
--- NOTE | 2024-02-18 14:49 | ED.VIS.STROK ---
HPI History of Present Illness Chief Complaint: Neuro S/Sx Informant: patient and family Onset/Context/Timing Onset: Yesterday Narrative Narrative: Patient presents secondary to questionable stroke. She reports that at 9 PM last evening she developed blurry vision with both of her eyes. This morning she had some confusion and felt she was having some difficulty finding her words. She went to see her eye doctor who did an exam did not note any acute abnormalities. Patient does report having prior history of TIAs which affected her vision. I was asked to see the patient in triage on arrival. Her NIH was 0, she was not a TNK candidate, and she is currently on Eliquis so I did not initiate a stroke alert. [facility] Medical History Essential hypertension Patent foramen ovale Premature ventricular contraction NSVT (nonsustained ventricular tachycardia) Cardiac arrhythmia Interatrial cardiac shunt HLD (hyperlipidemia) Hyponatremia Temporal arteritis PMR (polymyalgia rheumatica) Carotid stenosis CVA (cerebral vascular accident) Home Medications ?Medication ?Instructions ?Recorded ?Last Taken ?Type amlodipine 5 mg tablet 5 mg PO DAILY bp 12/30/17 02/18/24 History atenolol 25 mg tablet 25 tab PO DAILY bp 12/30/17 02/17/24 History lovastatin 40 mg tablet 40 mg PO QPM 05/30/20 02/17/24 History cholecalciferol (vitamin D3) 50 50 mcg PO DAILY 07/06/22 02/17/24 History mcg (2,000 unit) tablet loratadine 10 mg tablet (Claritin) 10 mg PO DAILY 07/06/22 02/17/24 History apixaban 5 mg tablet (Eliquis) 5 mg PO BID #180 tabs 05/03/23 02/18/24 Rx losartan 25 mg tablet 25 mg PO DAILY 06/16/23 02/18/24 History oxycodone 5 mg tablet 5 mg PO Q6H 3 days #10 tabs 01/17/24 Unknown Rx Bifidobacterium infantis 4 mg 4 mg PO DAILY 02/18/24 02/17/24 History capsule (Align) acetaminophen 500 mg capsule 500 mg PO Q6H PRN pain 02/18/24 02/18/24 History fluticasone propionate 50 1 spray intranasal DAILY 02/18/24 02/17/24 History mcg/actuation nasal spray,suspension pantoprazole 20 mg tablet,delayed 20 mg PO DAILY 02/18/24 02/17/24 History release Allergy/AdvReac Type Severity Reaction Status Date / Time No Known Allergies Allergy Verified 01/17/24 18:23 Family History Mother CVA (cerebral vascular accident) Father Heart disease Myocardial infarction Surgical History History of wisdom tooth extraction Social History Smoking Status: Never smoker alcohol intake: never substance use type: does not use caffeine: No ROS ROS ED Constitutional Constitutional ED: Denies chills or fever(s) Eyes Eyes: Reports blurry vision bilateral and change in vision; Denies discharge from eye(s) ENT ENT ED: Reports other Details: Eye pain when coughing ; Denies discharge from eye(s), rhinorrhea or sore throat Cardiovascular Cardiovascular: Denies chest pain or palpitations Respiratory/Chest Respiratory/Chest: Reports cough; Denies dyspnea Gastrointestinal Gastrointestinal: Denies abdominal pain, nausea or vomiting Genitourinary Genitourinary ED: Denies dysuria Musculoskeletal Musculoskeletal: Denies back pain or extremity pain Integumentary Denies Abrasions or rash Neurologic Neurologic: Reports headache(s); Denies weakness Psychiatric Psychiatric: Denies anxiety or depression Allergic/Immunologic Allergic/Immunologic ED: Denies lip swelling or urticaria EXAM Physical Exam Const Vital Signs: 02/18/24 14:10 02/18/24 14:14 02/18/24 15:08 Temperature 96.5 F L Temperature Source Temporal Pulse Rate 70 70 Respiratory Rate 16 12 Blood Pressure 148/72 H 134/72 H Blood Pressure Mean 97 92 Pulse Ox 97 96 Oxygen Delivery Method Room Air Room Air Room Air 02/18/24 16:00 Temperature Temperature Source Pulse Rate 80 Respiratory Rate 16 Blood Pressure 160/76 H Blood Pressure Mean 104 Pulse Ox 98 Oxygen Delivery Method Room Air Positive well nourished and well developed General Appearance ED: well developed HEENT Reports moist mucous membranes Eyes EOMs intact bilaterally Chest Wall inspection of chest normal and palpation of chest normal Resp normal respiratory effort and clear to auscultation bilaterally Cardio Rate: regular rate Rhythm: regular rhythm GI soft to palpation Auscultation: normoactive bowel sounds Extremity normal to inspection Neuro oriented x3 and no sensory deficits noted Motor Exam: strength 5/5 throughout Psych mental status grossly normal NIHSS NIHSS Initial: 1a Level of Consciousness: 0 1b LOC Questions (Score 2 if aphasic/stupor): 0 1c LOC Commands (Only score 1st attempt): 0 2 Best Gaze (If aphasic, use reflexive mvmts.): 0 3 Visual: 0 4 Facial Palsy: 0 5 Motor Arm Right (UN = amputation/fusion): 0 5 Motor Arm Left: 0 6 Motor Leg Right: 0 6 Motor Leg Left: 0 8 Sensory (Aphasia/stupor=0 or 1, coma=2): 0 9 Best Language: 0 10 Dysarthria (mute, coma=2, intubated=UN): 0 11 Extinction and Inattention (only scored if +): 0 Total Score: 0 MDM MDM MDM Narrative Medical decision making narrative: Patient placed on cardiac cath technician. IV line initiated. Labwork obtained to evaluate for leukocytosis, anemia, and electrolyte derangement. EKG obtained to evaluate for cardiac arrhythmia/ischemia. CT head along with CTA head and neck obtained to evaluate for potential stroke. Chest x-ray obtained to evaluate for acute lung pathology, cardiac size, or mediastinal abnormality. History & Record Review Discussion w/independent historian: Patient Lab Data Attestation: I reviewed the patient's lab results. Labs: Laboratory Results - last 24 hr 02/18/24 02/18/24 14:18 14:22 WBC 9.5 RBC 4.82 Hgb 13.5 Hct 41.3 MCV 85.7 MCH 28.0 MCHC 32.7 RDW Std Deviation 43.3 RDW Coeff of Mell 13.8 Plt Count 260 MPV 8.4 Immature Gran % (Auto) 0.300 Neut % (Auto) 79.5 H Lymph % (Auto) 12.4 L [place] % (Auto) 5.8 Eos % (Auto) 1.2 Baso % (Auto) 0.8 Absolute Neuts (auto) 7.5 Absolute Lymphs (auto) 1.18 Nucleated RBC % 0 PT 15.6 H INR 1.3 APTT 27.8 Sodium 123 L Potassium 4.6 Chloride 89 L Carbon Dioxide 28.0 Anion Gap 6 BUN 11 Creatinine 0.77 Estim Creat Clear Calc 43.25 Est GFR (MDRD) Af Amer 91 Est GFR (MDRD) Non-Af 76 BUN/Creatinine Ratio 14.3 Glucose 107 H Calcium 9.6 Troponin I High Sens 14 POC Glucose 120 H Radiography Chest X-Ray - ED: 1 View, Read by ED Physician, Chronic Changes and No Infiltrates Diagnostic Testing: Clinical Impression(s) from Imaging Studies Head/Neck CTA 02/18/24 14:15 IMPRESSION: No acute abnormality. No large vessel occlusion. Prominent calcified plaque of both carotid bulbs worse on the left. Mild grade stenosis of left ICA. Moderate grade stenosis of the right ICA. Electronically Signed: Virgilio Yates MD at 16:30 EDT Reading Location ID and State: [id number] / [employer] , Service support , Chest X-Ray 02/18/24 16:10 IMPRESSION: No definite acute or significant abnormality seen. Electronically Signed: Virgilio Yates MD at 16:33 EDT , EKG Initial EKG: Attestation: I personally reviewed and interpreted this EKG as follows: Interpretation: Sinus Rhythm (Sinus at 75 with no acute ischemia.) Treatment and Re-Evaluation Narrative: CBC was normal white count 9.5 with a hemoglobin of 13.5. 79% neutrophils noted. INR is 1.3. Chemistry studies significant for a sodium of 123. On review of records it does appear she has a history of chronic hyponatremia with sodium levels running between 127 and 134 on prior labs. Sodium level is slightly lower today than previous labs. She is receiving normal saline. Renal function is unremarkable. Troponin is normal at 14. Chest x-ray per my interpretation reveals no focal infiltrate with chronic changes. Radiology interpretation reviewed and agrees. CT head along with CTA of the head and neck obtained. No acute abnormalities noted. No large vessel occlusion. The impression of the report states there is moderate grade stenosis of the right ICA, however in the body of the report it describes less than 50% stenosis in the right ICA, but 50 to 69% stenosis of the left ICA. Patient be discussed with hospitalist regarding admission for further stroke workup as well as saline infusion to help improve her hyponatremia. Discharge Plan Triage Chief Complaint: Neuro S/Sx Other Complaint: Confusion ED Provider: Estephania De León Dx/Rx/DC Orders Clinical Impression: Brain TIA, Hyponatremia Prescriptions: No Action lovastatin 40 mg tablet 40 mg PO QPM cholecalciferol (vitamin D3) 50 mcg (2,000 unit) tablet 50 mcg PO DAILY Eliquis 5 mg tablet 5 mg PO BID Qty: 180 3RF losartan 25 mg tablet 25 mg PO DAILY atenolol 25 MG tablet 25 tab PO DAILY Patient Comments: amlodipine 5 MG tablet 5 mg PO DAILY Patient Comments: loratadine [Claritin] 10 mg tablet 10 mg PO DAILY oxycodone 5 mg tablet 5 mg PO Q6H 3 Days Qty: 10 0RF pantoprazole 20 mg tablet,delayed release (DR/EC) 20 mg PO DAILY acetaminophen 500 mg capsule 500 mg PO Q6H PRN (Reason: pain) Align 4 mg capsule 4 mg PO DAILY fluticasone propionate 50 mcg/actuation spray,suspension 1 spray INTRANASAL DAILY Patient Comments: [NO ORIGINAL SIG] Primary Care Provider: Martha Hadley Referrals: Martha Hadley MD [Primary Care Provider] - Print Language: Portuguese Disposition Disposition: Acute Care Hospital [facility]
[2024-02-18 14:50] LABS: International Normalized Ratio 1.3; Prothrombin Time (Protime)PT. 15.6 SECONDS (11.7-14.9)
[2024-02-18 14:51] LABS: Partial Thromboplast Time 27.8 Seconds (24.1-36.2)
[2024-02-18 15:47] LABS: Anion Gap 6 (5-15); BUN 11 mg/dL (7-18); BUN/Creat Ratio 14.3 RATIO (10-20); Calcium,Total 9.6 mg/dL (8.5-10.1); Chloride 89 mmol/L (98-107); Creatinine, Serum 0.77 mg/dL (0.55-1.02); EST Glomerular Filtration Rate 76 mL/min (>60); Est Glom Filt Rate - Afr Amer 91 mL/min (>60); Estimated Creatinine Clearance 43.25 ml/min; Glucose 107 mg/dL (74-106); Potassium 4.6 mmol/L (3.5-5.1); Sodium Level 123 mmol/L (136-145); Troponin-I HS 14 pg/mL (3.0-54.0)
--- NOTE | 2024-02-18 16:10 | RAD_ITS ---
STUDY: X-RAY CHEST REASON FOR EXAM: Female, 88 years old. Neuro deficit, acute, stroke suspected TECHNIQUE: Single AP portable view of the chest. COMPARISON: 04/23/2023. FINDINGS: The lungs are clear and expanded. Stable small linear scars across the mid left lung. There is no demonstrated pleural abnormality. Normal size heart. Normal mediastinum and micah. Normal visualized pulmonary arteries. There is atherosclerotic calcification of the aortic arch with tortuosity. Normal visualized thoracic spine. Normal visualized ribs, clavicles, and shoulders. There is no demonstrated abnormality of the visualized soft tissue structures of the upper abdomen. RAD/Chest 1 View IMPRESSION: No definite acute or significant abnormality seen. Electronically Signed: Virgilio Yates MD at 16:33 EDT ,
[2024-02-18] MEDS: 0.9% Normal Saline (1000mL) 1,000 ML 150 ML IV (16:39)
--- NOTE | 2024-02-18 17:14 | HP.PCM.HOS_ITS ---
HPI - General General Date of Admission: 02/18/24 Date of Service: 02/18/24 Chief Complaint: Strokelike symptoms HPI Narrative LORAINE KEN, is a 88 F with a significant history of atrial fibrillation; hypertension; patent foramen ovale; cardiac arrhythmia who presented to the emergency department with strokelike symptoms. Her symptoms began a day before presentation at 9 PM. Associated with her symptoms was confusion and difficulty finding words. Of note it was way past 4.5 hours since the patient presented to the emergency department. Reportedly patient has had many TIAs but was not associated with blurry vision. On the day of presentation patient went to see her newspaper columnist and was clear of any acute eye disease. She then came to emergency department with a private car. At the emergency department patient was seen at the triage by ED physician. NIH was 0. Stroke alert was not called since NIH was 0 and his symptoms will wait past 4.5 hours and she was on Eliquis. [facility], [facility] Medical History Essential hypertension Patent foramen ovale Premature ventricular contraction NSVT (nonsustained ventricular tachycardia) Cardiac arrhythmia Interatrial cardiac shunt HLD (hyperlipidemia) Hyponatremia Temporal arteritis PMR (polymyalgia rheumatica) Carotid stenosis CVA (cerebral vascular accident) Home Medications ?Medication ?Instructions ?Recorded ?Last Taken ?Type amlodipine 5 mg tablet 5 mg PO DAILY bp 12/30/17 02/18/24 History atenolol 25 mg tablet 25 tab PO QHS bp 12/30/17 02/17/24 History lovastatin 40 mg tablet 40 mg PO QPM 05/30/20 02/17/24 History cholecalciferol (vitamin D3) 50 50 mcg PO .daily qhs 07/06/22 02/17/24 History mcg (2,000 unit) tablet loratadine 10 mg tablet (Claritin) 10 mg PO DAILY 07/06/22 02/17/24 History apixaban 5 mg tablet (Eliquis) 5 mg PO BID #180 tabs 05/03/23 02/18/24 Rx losartan 25 mg tablet 25 mg PO BID 06/16/23 02/18/24 History oxycodone 5 mg tablet 5 mg PO Q6H 3 days #10 tabs 01/17/24 Unknown Rx Bifidobacterium infantis 4 mg 4 mg PO DAILY 02/18/24 02/17/24 History capsule (Align) acetaminophen 500 mg capsule 500 mg PO Q6H PRN pain 02/18/24 02/18/24 History fluticasone propionate 50 1 spray intranasal DAILY 02/18/24 02/17/24 History mcg/actuation nasal spray,suspension pantoprazole 20 mg tablet,delayed 20 mg PO DAILY 02/18/24 02/17/24 History release Allergy/AdvReac Type Severity Reaction Status Date / Time No Known Allergies Allergy Verified 01/17/24 18:23 Family History Mother CVA (cerebral vascular accident) Father Heart disease Myocardial infarction Surgical History History of wisdom tooth extraction Social History Smoking Status: Never smoker alcohol intake: never substance use type: does not use caffeine: No ROS ROS Narrative Pertinent positives and pertinent negatives as noted in HPI. All other systems were reviewed and are negative Vital Signs Vital Signs Vital Signs: 02/18/24 14:10 02/18/24 14:14 02/18/24 15:08 Temperature 96.5 F L Temperature Source Temporal Pulse Rate 70 70 Respiratory Rate 16 12 Blood Pressure 148/72 H 134/72 H Blood Pressure Mean 97 92 Pulse Ox 97 96 Oxygen Delivery Method Room Air Room Air Room Air 02/18/24 16:00 Temperature Temperature Source Pulse Rate 80 Respiratory Rate 16 Blood Pressure 160/76 H Blood Pressure Mean 104 Pulse Ox 98 Oxygen Delivery Method Room Air Weight Weight: 70 kg Body Mass Index (BMI) 30.2 Physical Exam Narrative Physical exam: General: Well-nourished, well-developed. Head: Normocephalic, atraumatic, no tenderness Eyes: Vision is grossly intact. EOMI ENT, no trauma, moist mucous membranes, no rhinorrhea Neck: Nontender, No thyromegaly. CVS: Regular rate and rhythm. S1-S2 present. No murmur, gallop or rub. Respiratory : clear to auscultation bilaterally, chest wall nontender Abdomen: Soft, nontender, nondistended, normal bowel sounds, no masses : Deferred Back: Nontender, no CVA tenderness, no midline spinal tenderness, deformities, step-offs Extremities: Nontender full range of motion, no trauma Skin: Normal color, no trauma, abrasions Neuro: Alert, oriented, cranial nerves II through XII grossly intact. Psychiatry: Normal mood. Normal affect. Not depressed. Not anxious. Results Lab / Micro Data 02/18/24 14:22 02/18/24 14:22 Labs: Laboratory Results - last 24 hr 02/18/24 14:18: POC Glucose 120 H 02/18/24 14:22: WBC 9.5, RBC 4.82, Hgb 13.5, Hct 41.3, MCV 85.7, MCH 28.0, MCHC 32.7, RDW Std Deviation 43.3, RDW Coeff of Mell 13.8, Plt Count 260, MPV 8.4, Immature Gran % (Auto) 0.300, Neut % (Auto) 79.5 H, Lymph % (Auto) 12.4 L, [place] % (Auto) 5.8, Eos % (Auto) 1.2, Baso % (Auto) 0.8, Absolute Neuts (auto) 7.5, Absolute Lymphs (auto) 1.18, Nucleated RBC % 0, PT 15.6 H, INR 1.3, APTT 27.8, S odium 123 L, Potassium 4.6, Chloride 89 L, Carbon Dioxide 28.0, Anion Gap 6, BUN 11, Creatinine 0.77, Estim Creat Clear Calc 43.25, Est GFR (MDRD) Af Amer 91, Est GFR (MDRD) Non-Af 76, BUN/Creatinine Ratio 14.3, Glucose 107 H, Calcium 9.6, Troponin I High Sens 14 Imaging Radiology Impression Head/Neck CTA 02/18/24 14:15 IMPRESSION: No acute abnormality. No large vessel occlusion. Prominent calcified plaque of both carotid bulbs worse on the left. Mild grade stenosis of left ICA. Moderate grade stenosis of the right ICA. Electronically Signed: Virgilio Yates MD at 16:30 EDT , Chest X-Ray 02/18/24 16:10 IMPRESSION: No definite acute or significant abnormality seen. Electronically Signed: Virgilio Yates MD at 16:33 EDT , Assessment & Plan Assessment/Plan (1) Hyponatremia: (2) Brain TIA: (3) Essential hypertension: (4) Paroxysmal A-fib: (5) Hypercoagulable state due to atrial fibrillation: QUALIFIERS: Atrial fibrillation type: paroxysmal Qualified Code(s): D68.69 - Other thrombophilia; I48.0 - Paroxysmal atrial fibrillation PLAN: Plan Strokelike symptoms Serial NINDS NIH Scale ordered Impression of head CT by radiology: Head and neck CTA interpreted by myself did not show any acute pathology. Per radiologist; there is 50 to 69% stenosis of the left internal carotid artery. EKG interpreted by myself showed sinus rhythm with first-degree AV block. Lipid profile and A1c ordered. Physical therapy, occupational therapy and to work with patient. N.p.o. until bedside swallow eval. Daily aspirin. Home statin continued. Permissive hypertension. Control blood pressure with labetalol for systolic blood pressure of more than 220 or diastolic blood pressure of more than 120. MRI/MRAM of head; brain; and neck. Echocardiogram ordered. Proximal A-fib/hypercoagulable state secondary A-fib. Stable Hold home beta-blockers for now secondary to permissive hypertension.. Eliquis continued. Hyponatremia Patient with chronic hyponatremia which has worsened per labs. Uric acid, serum and urine osmolality ordered. Urine sodium ordered. Normal saline hydration ordered. Trend BMP. Check TSH. Check cortisol level in a.m. Time spent in the patient's overall evaluation,decision-making process, review of diagnostic data, adjustment of management, discussion with other providers, nursing and ancillary staff involved in patient's care documentation, 70 minutes. Advance care planning: Discussed with patient and family advanced directives as well as CODE STATUS. Explained various CODE STATUS: FULL CODE, DNR CCA, DNR CCA with no intubation, and DNR CC- and what each meant. Patient elected to be a DNR CCA with intubation if warranted. Order was placed. Time spent on discussion 18 minutes. Has son Brock, is her surrogate.
[2024-02-18] MEDS: Acetaminophen 500 MG Tablet 1000 MG PO (17:27)
--- NOTE | 2024-02-18 18:13 | MRI_ITS ---
STUDY: MRI BRAIN WITHOUT CONTRAST REASON FOR EXAM: Female, 88 years old. CVA TECHNIQUE: Standardized multiplanar fat and water weighted pulse sequences were obtained. COMPARISON: CTA brain from today. FINDINGS: There is mild cerebral atrophy with widening of the extra-axial spaces and ventricular dilatation. There are multiple white matter hyperintensities, distributed throughout the deep white matter tracts of the cerebral hemispheres, consistent with moderate chronic white matter ischemic changes. There is no evidence for recent intracranial ischemia or other cause of cytotoxic edema on diffusion weighted imaging (DWI). Normal bilateral basal ganglia. Normal thalami. There is no extra-axial fluid accumulation. Normal flow voids within the major intracranial circulation suggesting patency by spin echo criteria. Normal sella turcica, pituitary gland, infundibular stalk, optic chiasm and hypothalamus. Normal tectal plate and pineal gland. Normal midbrain, yolanda and medulla. Normal cerebellum. Normal basal cisterns. Normal bilateral temporal bones. Normal bilateral internal auditory canals. No demonstrated orbital abnormality, within the constraints of a routine brain study. [Air-fluid levels within the maxillary sinuses. Fluid signal in the East moderate sinuses.] Thickening in the frontal sinus and sphenoid sinus. Normal calvarium and skull base. Normal visualized soft tissue structures. Normal visualized upper cervical spine. MRI/Brain without Contrast IMPRESSION: Involutional changes of the brain, as described above. Pansinusitis. Electronically Signed: Andres Barrett MD at 21:29 EDT ,
--- NOTE | 2024-02-18 18:13 | ECHOD_ITS ---
Reason For Study: TIA/CVA Procedure This was a 2D Doppler, Color Flow transthoracic echocardiogram. Exam performed portable in patient room. Left Ventricle Normal left ventricle. The estimated ejection fraction is 55-60 %. Right Ventricle Normal right ventricle. Normal systolic function. Atria Normal left atrium. Normal right atrium. Mitral Valve The mitral valve is structurally normal. No prolapse or stenosis seen. Mild (1+) mitral valve insufficiency. Tricuspid Valve Normal tricuspid valve. Mild tricuspid valve insufficiency. Aortic Valve Mild diffuse aortic valve calcification. Mild (1+) eccentric aortic valve insufficiency. Pulmonic Valve The pulmonic valve is not well visualized. Great Vessels Normal aortic root. Pericardium/Pleural No pericardial effusion. MMode/2D Measurements & Calculations LVIDd: 4.3 cm IVSd: 0.84 cm Ao root diam: 2.8 cm LVIDs: 2.8 cm LVPWd: 0.78 cm RVDd: 3.3 cm FS: 36.1 % LAV(MOD-sp4): 55.6 ml LVAd ap4: 20.3 cm2 LVAd ap2: 15.7 cm2 LVLd ap4: 6.6 cm LVLd ap2: 6.2 cm EDV(MOD-sp4): 51.1 ml EDV(MOD-sp2): 32.8 ml EDV(sp4-el): 52.6 ml EDV(sp2-el): 33.5 ml LVAs ap4: 11.1 cm2 LVAs ap2: 8.3 cm2 LVLs ap4: 5.5 cm LVLs ap2: 5.0 cm ESV(MOD-sp4): 19.6 ml ESV(MOD-sp2): 12.1 ml ESV(sp4-el): 19.0 ml ESV(sp2-el): 11.6 ml EF(MOD-sp4): 61.7 % EF(MOD-sp2): 63.2 % EF(sp4-el): 63.8 % SV(MOD-sp4): 31.5 ml SV(MOD-sp2): 20.8 ml SV(sp4-el): 33.6 ml LA dimension(2D): 3.7 cm LA A4 area: 19.7 cm2 RA A4 area: 15.2 cm2 TAPSE: 2.6 cm Time Measurements MV dec time: 0.18 sec Doppler Measurements & Calculations MV E max eliot: 61.6 cm/sec Lat Peak E' Eliot: 8.5 cm/sec Med Peak E' Eliot: 9.4 cm/sec MV A max eliot: 81.7 cm/sec E/E' lat: 7.3 E/E' med: 6.6 MV E/A: 0.75 MV V2 max: 83.4 cm/sec MV dec slope: 348.9 cm/sec2 Ao V2 max: 122.8 cm/sec MV max P.8 mmHg Ao max P.0 mmHg MV V2 mean: 50.7 cm/sec Ao V2 mean: 77.2 cm/sec MV mean P.1 mmHg Ao mean P.8 mmHg MV V2 VTI: 18.0 cm Ao V2 VTI: 25.3 cm AV (velocity ratio): 0.85 AI max eliot: 324.6 cm/sec LV V1 max: 100.0 cm/sec PA V2 max: 116.7 cm/sec AI max P.2 mmHg LV V1 max P.0 mmHg PA V2 mean: 77.3 cm/sec AI dec slope: 195.3 cm/sec2 LV V1 mean P.1 mmHg AI P1/2t: 486.9 msec LV V1 mean: 67.0 cm/sec LV V1 VTI: 21.6 cm TR max eliot: 349.4 cm/sec TR max P.8 mmHg ECHO/Echo Complete Interpretation Summary The estimated ejection fraction is 55-60 %. No significant changes from previous echo Ordering Physician: Franco Burciaga Referring Physician: Martha Hadley Performed By: Eun Wilkins RDCS, RVT
[2024-02-18] MEDS: 0.9% Normal Saline (1000mL) 1,000 ML 75 ML IV (18:27)
[2024-02-18 18:48] LABS: Hemoglobin A1c 5.6 % (3.8-5.6)
[2024-02-18 18:49] LABS: Uric Acid 2.5 mg/dL (2.6-6.0)
[2024-02-18] MEDS: Atorvastatin Calcium 20 MG Tablet PO (21:08)
[2024-02-18] MEDS: APIXABAN 5 MG TABLET PO (21:08)
[2024-02-18 21:10] LABS: Anion Gap 10 (5-15); BUN 10 mg/dL (7-18); BUN/Creat Ratio 12.6 RATIO (10-20); Calcium,Total 9.7 mg/dL (8.5-10.1); Chloride 89 mmol/L (98-107); Creatinine, Serum 0.79 mg/dL (0.55-1.02); EST Glomerular Filtration Rate 73 mL/min (>60); Est Glom Filt Rate - Afr Amer 88 mL/min (>60); Estimated Creatinine Clearance 42.81 ml/min; Glucose 164 mg/dL (74-106); Potassium 3.8 mmol/L (3.5-5.1); Sodium Level 124 mmol/L (136-145)
[2024-02-18 21:22] LABS: Osmolality, Serum 293 mOsm/KG (280-301)
[2024-02-19 00:24] LABS: Anion Gap 9 (5-15); BUN 10 mg/dL (7-18); BUN/Creat Ratio 14.4 RATIO (10-20); Calcium,Total 9.2 mg/dL (8.5-10.1); Chloride 92 mmol/L (98-107); Creatinine, Serum 0.69 mg/dL (0.55-1.02); EST Glomerular Filtration Rate 85 mL/min (>60); Est Glom Filt Rate - Afr Amer 103 mL/min (>60); Estimated Creatinine Clearance 42.81 ml/min; Glucose 99 mg/dL (74-106); Potassium 3.9 mmol/L (3.5-5.1); Sodium Level 126 mmol/L (136-145)
[2024-02-19 02:00] VITALS: BP 123/62; PULSE 62; RESP 18; TEMP 35.6; O2SAT 96
[2024-02-19 05:07] LABS: Absolute Lymphocyte Count 1.79 X10^3/uL (0.83-4.51); Absolute Neutrophil Count 3.4 X10^3/uL (2.0-7.7); Basophil# 0.05 X10^3/uL; Basophil% 0.8 % (0-1); Eosinophils% 3.3 % (0-5); Hematocrit 37.4 % (37-47); Hemoglobin 12.2 g/dL (12.0-15.0); Lymphocyte # 1.79 X10^3/ul (0.83-4.51); Lymphocyte % 29.2 % (19-41); Mean Corp Hgb Conc 32.6 g/dL (32-36); Mean Corpuscular Hgb 27.7 pg (27.0-32.0); Mean Platelet Vol. 8.5 fl (6.2-12.0); Monocyte# 0.65 X10^3/uL; Monocyte% 10.6 % (0-10); NRBC Flagged by Analyzer 0 % (0-5); Neutrophil # 3.43 X10^3/uL (2.7-7.7); Neutrophil % 55.9 % (47-70); Platelet Count 249 K/mm3 (150-450); RBC Distribution Width CV 13.8 % (11.6-14.6); RBC Distribution Width SD 42.9 fl (35.1-43.9); White Blood Count 6.1 K/mm3 (4.4-11.0)
[2024-02-19 05:35] LABS: Anion Gap 9 (5-15); BUN 10 mg/dL (7-18); BUN/Creat Ratio 14.2 RATIO (10-20); Calcium,Total 9.4 mg/dL (8.5-10.1); Chloride 93 mmol/L (98-107); Cholesterol 163 mg/dL (200); EST Glomerular Filtration Rate 84 mL/min (>60); Est Glom Filt Rate - Afr Amer 101 mL/min (>60); Estimated Creatinine Clearance 42.81 ml/min; Glucose 99 mg/dL (74-106); High Density Lipoprotein 79 mg/dL; Potassium 3.8 mmol/L (3.5-5.1); Sodium Level 127 mmol/L (136-145); Thyroid Stim Hormone (TSH) 4.04 uIU/mL (0.358-3.74); Triglycerides 99 mg/dL; Very Low Density Lipoprotein 20 mg/dL (5-40)
[2024-02-19 05:58] VITALS: BP 158/74; PULSE 72; RESP 18; TEMP 35.7; O2SAT 97
[2024-02-19 06:12] LABS: Osmolality, Urine 295 mOsm/KG
[2024-02-19 06:19] LABS: Urine Sodium 68 mmol/L (Not Establ.)
[2024-02-19 07:35] VITALS: O2SAT 97
--- NOTE | 2024-02-19 07:55 | PCM.PN.HOSP ---
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) Hypo-osmolality and hyponatremia (02/18/24) Transient cerebral ischemic attack, unspecified (02/18/24) Essential (primary) hypertension (02/18/24) Paroxysmal atrial fibrillation (02/18/24) Objective Data Objective Data Vital Signs: Vital Signs Temp Pulse Resp BP Pulse Ox O2 Del Method 96.2 F L 72 18 158/74 H 97 Room Air 02/19/24 05:58 02/19/24 05:58 02/19/24 05:58 02/19/24 05:58 02/19/24 05:58 02/19/24 05:58 Oxygen Delivery Method Room Air Weight: 151 lb 3.794 oz Body Mass Index (BMI) 29.5 Intake & Output: Intake and Output for Last 24 Hours 02/17/24 02/18/24 02/19/24 23:59 23:59 23:59 Intake Total 322.5 / 322.5 Balance 322.5 / 322.5 Lab / Micro Data 02/19/24 04:37 02/19/24 04:37 Labs: Laboratory Results - last 24 hr 02/18/24 14:18: POC Glucose 120 H 02/18/24 14:22: WBC 9.5, RBC 4.82, Hgb 13.5, Hct 41.3, MCV 85.7, MCH 28.0, MCHC 32.7, RDW Std Deviation 43.3, RDW Coeff of Mell 13.8, Plt Count 260, MPV 8.4, Immature Gran % (Auto) 0.300, Neut % (Auto) 79.5 H, Lymph % (Auto) 12.4 L, Clinton % (Auto) 5.8, Eos % (Auto) 1.2, Baso % (Auto) 0.8, Absolute Neuts (auto) 7.5, Absolute Lymphs (auto) 1.18, Nucleated RBC % 0, PT 15.6 H, INR 1.3, APTT 27.8, Sodium 123 L, Potassium 4.6, Chloride 89 L, Carbon Dioxide 28.0, Anion Gap 6, BUN 11, Creatinine 0.77, Estim Creat Clear Calc 43.25, Est GFR (MDRD) Af Amer 91, Est GFR (MDRD) Non-Af 76, BUN/Creatinine Ratio 14.3, Glucose 107 H, Hemoglobin A1c 5.6, Uric Acid 2.5 L, Calcium 9.6, Troponin I High Sens 14 02/18/24 20:16: Sodium 124 L, Potassium 3.8, Chloride 89 L, Carbon Dioxide 25.0, Anion Gap 10, BUN 10, Creatinine 0.79, Estim Creat Clear Calc 42.81, Est GFR (MDRD) Af Amer 88, Est GFR (MDRD) Non-Af 73, BUN/Creatinine Ratio 12.6, Glucose 164 H, Serum Osmolality 293, Calcium 9.7 02/19/24 00:01: Sodium 126 L, Potassium 3.9, Chloride 92 L, Carbon Dioxide 25.0, Anion Gap 9, BUN 10, Creatinine 0.69, Estim Creat Clear Calc 42.81, Est GFR (MDRD) Af Amer 103, Est GFR (MDRD) Non-Af 85, BUN/Creatinine Ratio 14.4, Glucose 99, Calcium 9.2 02/19/24 04:37: WBC 6.1, RBC 4.40, Hgb 12.2, Hct 37.4, MCV 85.0, MCH 27.7, MCHC 32.6, RDW Std Deviation 42.9, RDW Coeff of Mell 13.8, Plt Count 249, MPV 8.5, Immature Gran % (Auto) 0.200, Neut % (Auto) 55.9, Lymph % (Auto) 29.2, Clinton % (Auto) 10.6 H, Eos % (Auto) 3.3, Baso % (Auto) 0.8, Absolute Neuts (auto) 3.4, Absolute Lymphs (auto) 1.79, Nucleated RBC % 0, Sodium 127 L, Potassium 3.8, Chloride 93 L, Carbon Dioxide 25.0, Anion Gap 9, BUN 10, Creatinine 0.70, Estim Creat Clear Calc 42.81, Est GFR (MDRD) Af Amer 101, Est GFR (MDRD) Non-Af 84, BUN/Creatinine Ratio 14.2, Glucose 99, Calcium 9.4, Triglycerides 99, Cholesterol 163, LDL Cholesterol 64, VLDL Cholesterol 20, HDL Cholesterol 79, TSH 4.04 H 02/19/24 05:10: Urine Osmolality 295, Ur Random Sodium 68 Radiography Diagnostic Testing: Radiology Impression Head/Neck CTA 02/18/24 14:15 IMPRESSION: No acute abnormality. No large vessel occlusion. Prominent calcified plaque of both carotid bulbs worse on the left. Mild grade stenosis of left ICA. Moderate grade stenosis of the right ICA. Electronically Signed: Virgilio Yates MD at 16:30 EDT , Chest X-Ray 02/18/24 16:10 IMPRESSION: No definite acute or significant abnormality seen. Electronically Signed: Virgilio Yates MD at 16:33 EDT , Physical Exam Narrative Seen and examined. Patient was admitted with mainly blurry vision all throughout visual field. Denies visual field defect. No focal weakness, sensory deficit, language deficit, dysarthria or dysphagia. Denies fever or dysuria Physical exam General: Alert, Oriented x3, Cooperative HEENT: Blurry vision resolved. Bilateral status post cataract surgery in the past. One-to-one visual confrontation test, no significant loss of visual field. PERRLA, EOMI, Normocephalic Oral: No Gingival or Mucosal Lesions/ Ulcerations Neck: Supple, No JVD, Negative Carotid Bruits Chest wall/Lungs: Air entry diminished in bilateral lung bases. No crepitation/rhonchi Cardiovascular: Regular rate, Regular Rhythm, Normal S1, Normal S2, diastolic murmur murmur right second ICS and left upper sternal border. Abdomen: Bowel Sounds Present, Soft, Non Tender, Non-Distended : No dysuria. No renal angle tenderness. No suprapubic tenderness. Extremities: No edema, Capillary Refill Less than 3 Seconds Skin: No rashes, No breakdown Musculoskeletal: No Tenderness to Palpation of Joints or Extremities. ROM intact. 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 Neurological: Cranial nerves II-XII grossly intact, DTR 2+/4. No acute focal neurological deficit. Psych/Mental Status: Normal Affect, Appropriate. 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 This glass melt operator did not find any acute abnormality. NIH stroke scale was 0 not TNK candidate, currently on Eliquis therefore stroke alert was not initiated. 1. Bilateral visual field, confusion., Strokelike symptoms. PT, OT, speech therapy/swallow evaluation and management, nursing NIH stroke scale, BP and glucose monitoring and control as per stroke protocol. CTA shows no LVO, calcified plaque left more than right at carotid bulbs. Mild grade left ICA and moderate right ICA stenosis. 2D echo in June 12 shows left atrium mildly enlarged EF 65%, patent mariano ovale. Repeat echo is ordered. Fasting profile triglycerides 99, Cholesterol 163, LDL Cholesterol 64, VLDL Cholesterol 20, HDL Cholesterol 79, A1c 5.6 normal. TSH 4.04 H. Free T4 ordered MRI brain shows pansinusitis with mild cerebral atrophy. No evidence of recent intracranial ischemia. Twelve-lead EKG shows sinus rhythm with first-degree block Daily aspirin. Home statin continued. Permissive hypertension. Control blood pressure with labetalol for systolic blood pressure of more than 220 or diastolic blood pressure of more than 120. Proximal A-fib/hypercoagulable state secondary A-fib. Hold home beta-blockers for now secondary to permissive hypertension.. Eliquis continued. Hyponatremia Patient with chronic hyponatremia which has worsened per labs. Urine osmolality 295, urine sodium 68., Serum Osmo 293. Uric acid 2.5 low. Serum cortisol pending. With IV fluid, Serum sodium does not show increase Laboratory Results 02/18/24 14:18: POC Glucose 120 H 02/18/24 14:22: WBC 9.5, RBC 4.82, Hgb 13.5, Hct 41.3, MCV 85.7, MCH 28.0, MCHC 32.7, RDW Std Deviation 43.3, RDW Coeff of Mell 13.8, Plt Count 260, MPV 8.4, Immature Gran % (Auto) 0.300, Neut % (Auto) 79.5 H, Lymph % (Auto) 12.4 L, Clinton % (Auto) 5.8, Eos % (Auto) 1.2, Baso % (Auto) 0.8, Absolute Neuts (auto) 7.5, Absolute Lymphs (auto) 1.18, Nucleated RBC % 0, PT 15.6 H, INR 1.3, APTT 27.8, Sodium 123 L, Potassium 4.6, Chloride 89 L, Carbon Dioxide 28.0, Anion Gap 6, BUN 11, Creatinine 0.77, Estim Creat Clear Calc 43.25, Est GFR (MDRD) Af Amer 91, Est GFR (MDRD) Non-Af 76, BUN/Creatinine Ratio 14.3, Glucose 107 H, Hemoglobin A1c 5.6, Uric Acid 2.5 L, Calcium 9.6, Troponin I High Sens 14 02/18/24 20:16: Sodium 124 L, Potassium 3.8, Chloride 89 L, Carbon Dioxide 25.0, Anion Gap 10, BUN 10, Creatinine 0.79, Estim Creat Clear Calc 42.81, Est GFR (MDRD) Af Amer 88, Est GFR (MDRD) Non-Af 73, BUN/Creatinine Ratio 12.6, Glucose 164 H, Serum Osmolality 293, Calcium 9.7 02/19/24 00:01: Sodium 126 L, Potassium 3.9, Chloride 92 L, Carbon Dioxide 25.0, Anion Gap 9, BUN 10, Creatinine 0.69, Estim Creat Clear Calc 42.81, Est GFR (MDRD) Af Amer 103, Est GFR (MDRD) Non-Af 85, BUN/Creatinine Ratio 14.4, Glucose 99, Calcium 9.2 02/19/24 04:37: WBC 6.1, RBC 4.40, Hgb 12.2, Hct 37.4, MCV 85.0, MCH 27.7, MCHC 32.6, RDW Std Deviation 42.9, RDW Coeff of Mell 13.8, Plt Count 249, MPV 8.5, Immature Gran % (Auto) 0.200, Neut % (Auto) 55.9, Lymph % (Auto) 29.2, Clinton % (Auto) 10.6 H, Eos % (Auto) 3.3, Baso % (Auto) 0.8, Absolute Neuts (auto) 3.4, Absolute Lymphs (auto) 1.79, Nucleated RBC % 0, Sodium 127 L, Potassium 3.8, Chloride 93 L, Carbon Dioxide 25.0, Anion Gap 9, BUN 10, Creatinine 0.70, Estim Creat Clear Calc 42.81, Est GFR (MDRD) Af Amer 101, Est GFR (MDRD) Non-Af 84, BUN/Creatinine Ratio 14.2, Glucose 99, Calcium 9.4, Triglycerides 99, Cholesterol 163, LDL Cholesterol 64, VLDL Cholesterol 20, HDL Cholesterol 79, TSH 4.04 H, Cortisol Pending 02/19/24 05:10: Urine Osmolality 295, Ur Random Sodium 68 Advance care planning: Discussed with patient and family advanced directives as well as CODE STATUS. Explained various CODE STATUS: FULL CODE, DNR CCA, DNR CCA with no intubation, and DNR CC- and what each meant. Patient elected to be a DNR CCA with intubation if warranted. Order was placed. Time spent on discussion 18 minutes. Has son Brock, is her surrogate. Clinical Impression(s) from Imaging Studies Head/Neck CTA 02/18/24 14:15 IMPRESSION: No acute abnormality. No large vessel occlusion. Prominent calcified plaque of both carotid bulbs worse on the left. Mild grade stenosis of left ICA. Moderate grade stenosis of the right ICA. Chest X-Ray 02/18/24 16:10 IMPRESSION: No definite acute or significant abnormality seen. Brain MRI 02/18/24 18:13 IMPRESSION: Involutional changes of the brain, as described above. Pansinusitis. Charges/Coding Visit Charges Inpatient E&M: 84528 Subs Hosp L2
[2024-02-19 08:33] VITALS: BP 148/63; PULSE 73; RESP 14; TEMP 36.7; O2SAT 95
[2024-02-19] MEDS: 0.9% Normal Saline (1000mL) 1,000 ML 75 ML IV (08:45)
[2024-02-19] MEDS: Cholecalciferol (VIT D3) 25 MCG TABLET (1,000 UNITS) 50 MCG PO (08:46)
[2024-02-19] MEDS: Aspirin 81 MG TAB.CHEW PO (08:46)
[2024-02-19] MEDS: Pantoprazole Sodium 20 MG Tablet PO (08:46)
[2024-02-19] MEDS: Loratadine 10 MG Tablet PO (08:46)
[2024-02-19] MEDS: APIXABAN 5 MG TABLET PO (08:47)
--- NOTE | 2024-02-19 10:48 | CASEMGMT ---
SW went to patient's room. Introduced self and role at [facility]. Patient had visitors present. SW explained PHQ 9 and patient was okay with SW completing, however she asked SW to come back later since she has company. SW will check back as able. Lupis Bartlett MSW DIONNE
--- NOTE | 2024-02-19 11:00 | CM.UR ---
RN LONA Assessment: Face to Face with pt for initial transition planning/care coordination assessment. RN CM introduced self and role at [facility], pt voices understanding and consents to assessment. Pt is A&O x4 and answers all questions appropriately at this time. Pt son is at bedside. Care providers, pharmacy, and demographics verified/updated. Admitting Dx: Stroke like symptoms PCP: Dr. Martha Hadley Specialists: Dr. Bee with rheumatology and a spooler Preferred Pharmacy: [facility] [place] Insurance: [email or web address] [facility] Prescription Benefit: yes LNOK: Asif Gutiérrez [phone] Living Arrangements: Pt lives at home, alone. Home is a single story home with no steps to enter. Pt is independent at baseline at ADLs and IADLs. Transportation: Pt drives self and denies concerns with transportation. Pt has not driven in the past 3 weeks due to a recent a foot injury, son has been helping. DME: Normally pt does not use an AD for ambulation. However, since her foot injury she has been using a FWW. Pt also has a cane and would like to learn how to use that properly moving forward. Pt does have and use grab bars, shower chair, and a toilet riser. HHC/SNF: Pt had HHC 5 yrs ago after a hospitalization in [place] but is unsure of the agency. No SNF history. Pt states no concerns with going home at time of dc. Pt states no further concerns/needs. CM to follow. Advised pt to ask CM if any further question/concerns/needs arise, voices understanding. Pt Goal: Home with HHC Plan: Home with HHC. Discussed HHC vs OP and pt feels that at this time HHC would be best with a plan to transition to OP. Tasia Simpson MSN, RN, CCM
--- NOTE | 2024-02-19 11:13 | CASEMGMT ---
Addendum entered by Tasia Simpson 02/19/24 11:43: [facility] is able to accept. Pts son made aware as pt speaking with nurse. GREEN Sheet completed and placed on chart. Tasia Simpson MSN, RN, CCM Original Note: Patientdeclined a list of [facility] providers including quality and resource use data and consistent with the patient?s preferred geographic region, medical needs, and insurance network from the [employer] Guide. Pt reports she normally follows with [facility] and would like [facility] if possible. Referral sent. Pt informed if they are unable to accept this commercial lines underwriter will provide her with the list of [facility] providers. Pt agreeable. Tasia AYALA, RN, CCM
--- NOTE | 2024-02-19 11:14 | CASEMGMT ---
RN CM in to discuss DIAZ form with patient. RN CM explained DIAZ form, patient voiced understanding. Pt signed form and filed in chart. Pt provided with a copy of signed DIAZ form. Patient had no further questions or concerns at this time. Tasia Simpson MSN, RN, CCM
--- NOTE | 2024-02-19 11:39 | CASEMGMT ---
SW attempted again to do PHQ9, however patient's visitors were still present. Lupis Bartlett PLATE CONDITIONER DIONNE
--- NOTE | 2024-02-19 13:58 | DCINST_ITS ---
Discharge Instructions Diet Discharge Diet: 2000 mg Sodium Diet Activity Discharge Activity: Return to Normal Activity Weight Bearing Status: Weight bearing as tolerated Dressing / Incision Call your doctor if you observe: Fever of 101 or Higher, Coldness, Increased Pain, Numbness or Tingling, Change in Color, Inability to urinate, Inability to have a bowel movement, Shortness of breath, Dizziness, Fainting spells, Swelling in the ankles, Chest pain, Prolonged hiccupping, Increased palpitations (irregular heartbeat) and Calf discomfort Follow Up Care When: IN 2 WEEKS Test Results: Test results from this visit will be discussed in further detail at your follow- up appointment, if applicable. Discharge Plan Admission Admit Date/Time: 02/18/24 17:54 Primary Reason for Your Visit: Dizziness. Stroke ruled out Attending Provider: Melvin Hurley Primary Care Provider: Martha Hadley Consulting Providers: Franco Burciaga; Eliu Prieto; Lester Hightower; Mandy Muse; Princess Cha; Tyra Plaza; Anival Quiroz; Destiny Newberry; Claude Salazar; Vaughn Krishnamurthy; Annia Naqvi; Vishnu Louis; Sahara Aviles; Yuriy Johnson; Froylan Craig; Oliver Simpson; Davy Lamar; Sean Feldman; Heather Best; Sandoval Kohli Discharge Orders/Prescriptions Prescriptions: Continued lovastatin 40 mg tablet 40 mg PO QPM cholecalciferol (vitamin D3) 50 mcg (2,000 unit) tablet 50 mcg PO .daily qhs Eliquis 5 mg tablet 5 mg PO BID Qty: 180 3RF losartan 25 mg tablet 25 mg PO BID atenolol 25 MG tablet 25 tab PO QHS Patient Comments: amlodipine 5 MG tablet 5 mg PO DAILY Patient Comments: loratadine [Claritin] 10 mg tablet 10 mg PO DAILY oxycodone 5 mg tablet 5 mg PO Q6H 3 Days Qty: 10 0RF pantoprazole 20 mg tablet,delayed release (DR/EC) 20 mg PO DAILY acetaminophen 500 mg capsule 500 mg PO Q6H PRN (Reason: pain) Align 4 mg capsule 4 mg PO DAILY fluticasone propionate 50 mcg/actuation spray,suspension 1 spray INTRANASAL DAILY Patient Comments: [NO ORIGINAL SIG] Referrals / Follow Up: Luis Chopra MD [Med Staff - Active Staff] - Within 1 Month (Bilateral mild to moderate carotid stenosis) Martha Hadley MD [Primary Care Provider] - Within 2 Weeks Disposition Disposition (needs filled in before D/C Order can be placed): Home Health Service
--- NOTE | 2024-02-19 14:05 | DS.PCM_ITS ---
Providers Date of Admission: 02/18/24 Date of Discharge: 02/19/24 Primary Care Physician: Dr. Martha Hadley MD Consultations 02/19/24 10:42 Teleneurology [Consult: Tele-Neurology] Routine Consulting Provider: [facility] Reason for Consult: stroke rule out EMERGENT Consult: No MD Notified: Yes Date Notified: 02/19/24 Time Notified: 10:42 Method of Notification: Answering Service Nursing Unit Staff Notify [facility] of Tele-Neurology Consult: Yes Reason For Visit: STROKE LIKE SYMPTOMS Diagnosis Discharge Diagnosis (1) Hyponatremia: Status: Acute Code(s): E87.1 - Hypo-osmolality and hyponatremia (2) Brain TIA: Status: Acute Code(s): G45.9 - Transient cerebral ischemic attack, unspecified (3) Essential hypertension: Status: Acute Code(s): I10 - Essential (primary) hypertension (4) Paroxysmal A-fib: Status: Acute Code(s): I48.0 - Paroxysmal atrial fibrillation (5) Hypercoagulable state due to atrial fibrillation: Status: Acute Code(s): D68.69 - Other thrombophilia; I48.91 - Unspecified atrial fibrillation Qualifiers: Atrial fibrillation type: paroxysmal Qualified Code(s): D68.69 - Other thrombophilia; I48.0 - Paroxysmal atrial fibrillation Plan 88-year-old female was admitted with blurry vision about 9 PM on 02/16, confusion and difficulty in finding words to express. This naval gunfire spotter did not find any acute abnormality. NIH stroke scale was 0 not TNK candidate, currently on Eliquis therefore stroke alert was not initiated. 1. Bilateral visual field, confusion, acute stroke ruled out: Patient admitted in PCU.. PT, OT, speech therapy/swallow evaluation and management, nursing NIH stroke scale, BP and glucose monitoring and control as per stroke protocol. CTA shows no LVO, calcified plaque left more than right at carotid bulbs. Mild grade left ICA and moderate right ICA stenosis. 2D echo in June 12 shows left atrium mildly enlarged EF 65%, patent mariano ovale. Repeat echo is ordered, done but not reported yet Fasting profile triglycerides 99, Cholesterol 163, LDL Cholesterol 64, VLDL Cholesterol 20, HDL Cholesterol 79, A1c 5.6 normal. TSH 4.04 H high normal.Follow-up PCP. MRI brain shows pansinusitis with mild cerebral atrophy. No evidence of recent intracranial ischemia. Twelve-lead EKG shows sinus rhythm with first-degree block Does not need baby aspirin patient already on Eliquis 5 mg twice daily Home statin continued. Blood pressure medications continued. 2. Proximal A-fib/hypercoagulable state secondary A-fib. On beta-deanna, atenolol continued 3. Hypertension: With increased age her goal should be not less than 130 mmHg, about 130 to 150 mmHg. 4. Hyponatremia Patient with chronic hyponatremia which has worsened per labs. Urine osmolality 295, urine sodium 68., Serum Osmo 293. Uric acid 2.5 low. Serum cortisol pending. With IV fluid, Serum sodium does not show increase. Possible SIADH. Patient not on diuretics. Fluid restriction. Discharge medication reconciliation done. Discharge follow-up instructions completed. Discharge process discussed with the patient and all questions were answered to patient's satisfaction. Follow with PCP in 1 to 2 weeks Total time spent, exact 35 minutes on discharge meds reconciliation, examination, coordination of care with nurses and ancillary staff, review of imaging and blood test and discussion with the patient on follow-up instructions. Laboratory Results 02/18/24 14:18: POC Glucose 120 H 02/18/24 14:22: WBC 9.5, RBC 4.82, Hgb 13.5, Hct 41.3, MCV 85.7, MCH 28.0, MCHC 32.7, RDW Std Deviation 43.3, RDW Coeff of Mell 13.8, Plt Count 260, MPV 8.4, Immature Gran % (Auto) 0.300, Neut % (Auto) 79.5 H, Lymph % (Auto) 12.4 L, Mcintosh % (Auto) 5.8, Eos % (Auto) 1.2, Baso % (Auto) 0.8, Absolute Neuts (auto) 7.5, Absolute Lymphs (auto) 1.18, Nucleated RBC % 0, PT 15.6 H, INR 1.3, APTT 27.8, S odium 123 L, Potassium 4.6, Chloride 89 L, Carbon Dioxide 28.0, Anion Gap 6, BUN 11, Creatinine 0.77, Estim Creat Clear Calc 43.25, Est GFR (MDRD) Af Amer 91, Est GFR (MDRD) Non-Af 76, BUN/Creatinine Ratio 14.3, Glucose 107 H, Hemoglobin A1c 5.6, Uric Acid 2.5 L, Calcium 9.6, Troponin I High Sens 14 02/18/24 20:16: Sodium 124 L, Potassium 3.8, Chloride 89 L, Carbon Dioxide 25.0, Anion Gap 10, BUN 10, Creatinine 0.79, Estim Creat Clear Calc 42.81, Est GFR (MDRD) Af Amer 88, Est GFR (MDRD) Non-Af 73, BUN/Creatinine Ratio 12.6, Glucose 164 H, Serum Osmolality 293, Calcium 9.7 02/19/24 00:01: Sodium 126 L, Potassium 3.9, Chloride 92 L, Carbon Dioxide 25.0, Anion Gap 9, BUN 10, Creatinine 0.69, Estim Creat Clear Calc 42.81, Est GFR (MDRD) Af Amer 103, Est GFR (MDRD) Non-Af 85, BUN/Creatinine Ratio 14.4, Glucose 99, Calcium 9.2 02/19/24 04:37: WBC 6.1, RBC 4.40, Hgb 12.2, Hct 37.4, MCV 85.0, MCH 27.7, MCHC 32.6, RDW Std Deviation 42.9, RDW Coeff of Mell 13.8, Plt Count 249, MPV 8.5, Immature Gran % (Auto) 0.200, Neut % (Auto) 55.9, Lymph % (Auto) 29.2, Mcintosh % (Auto) 10.6 H, Eos % (Auto) 3.3, Baso % (Auto) 0.8, Absolute Neuts (auto) 3.4, Absolute Lymphs (auto) 1.79, Nucleated RBC % 0, Sodium 127 L, Potassium 3.8, C hloride 93 L, Carbon Dioxide 25.0, Anion Gap 9, BUN 10, Creatinine 0.70, Estim Creat Clear Calc 42.81, Est GFR (MDRD) Af Amer 101, Est GFR (MDRD) Non-Af 84, BUN/Creatinine Ratio 14.2, Glucose 99, Calcium 9.4, Triglycerides 99, Cholesterol 163, LDL Cholesterol 64, VLDL Cholesterol 20, HDL Cholesterol 79, T SH 4.04 H, Cortisol Pending 02/19/24 05:10: Urine Osmolality 295, Ur Random Sodium 68 Advance care planning: Discussed with patient and family advanced directives as well as CODE STATUS. Explained various CODE STATUS: FULL CODE, DNR CCA, DNR CCA with no intubation, and DNR CC- and what each meant. Patient elected to be a DNR CCA with intubation if warranted. Order was placed. Time spent on discussion 18 minutes. Has son Brock, is her surrogate. Clinical Impression(s) from Imaging Studies Head/Neck CTA 02/18/24 14:15 IMPRESSION: No acute abnormality. No large vessel occlusion. Prominent calcified plaque of both carotid bulbs worse on the left. Mild grade stenosis of left ICA. Moderate grade stenosis of the right ICA. Chest X-Ray 02/18/24 16:10 IMPRESSION: No definite acute or significant abnormality seen. Brain MRI 02/18/24 18:13 IMPRESSION: Involutional changes of the brain, as described above. Pansinusitis. Medications at Discharge Home Medications amlodipine 5 mg tablet 5 mg PO DAILY bp 12/30/17 atenolol 25 mg tablet 25 tab PO QHS bp 12/30/17 lovastatin 40 mg tablet 40 mg PO QPM 05/30/20 cholecalciferol (vitamin D3) 50 mcg (2,000 unit) tablet 50 mcg PO .daily qhs 07/06/22 loratadine 10 mg tablet (Claritin) 10 mg PO DAILY 07/06/22 apixaban 5 mg tablet (Eliquis) 5 mg PO BID #180 tabs 05/03/23 losartan 25 mg tablet 25 mg PO BID 06/16/23 oxycodone 5 mg tablet 5 mg PO Q6H 3 days #10 tabs 01/17/24 Bifidobacterium infantis 4 mg capsule (Align) 4 mg PO DAILY 02/18/24 acetaminophen 500 mg capsule 500 mg PO Q6H PRN pain 02/18/24 fluticasone propionate 50 mcg/actuation nasal spray,suspension 1 spray intranasal DAILY 02/18/24 pantoprazole 20 mg tablet,delayed release 20 mg PO DAILY 02/18/24 Physical Exam Narrative Patient was seen and examined on the day of discharge. Please see progress note I talked to the patient's son on the day of discharge and explained about hospital course and diagnosis. Weight / BMI Weight Weight: 151 lb 3.794 oz Body Mass Index (BMI) 29.5 ABG / Lab / Microbiology Data 02/19/24 04:37 02/19/24 04:37 Laboratory: Laboratory Results - last 24 hr 02/18/24 14:18: POC Glucose 120 H 02/18/24 14:22: WBC 9.5, RBC 4.82, Hgb 13.5, Hct 41.3, MCV 85.7, MCH 28.0, MCHC 32.7, RDW Std Deviation 43.3, RDW Coeff of Mell 13.8, Plt Count 260, MPV 8.4, Immature Gran % (Auto) 0.300, Neut % (Auto) 79.5 H, Lymph % (Auto) 12.4 L, Mcintosh % (Auto) 5.8, Eos % (Auto) 1.2, Baso % (Auto) 0.8, Absolute Neuts (auto) 7.5, Absolute Lymphs (auto) 1.18, Nucleated RBC % 0, PT 15.6 H, INR 1.3, APTT 27.8, S odium 123 L, Potassium 4.6, Chloride 89 L, Carbon Dioxide 28.0, Anion Gap 6, BUN 11, Creatinine 0.77, Estim Creat Clear Calc 43.25, Est GFR (MDRD) Af Amer 91, Est GFR (MDRD) Non-Af 76, BUN/Creatinine Ratio 14.3, Glucose 107 H, Hemoglobin A1c 5.6, Uric Acid 2.5 L, Calcium 9.6, Troponin I High Sens 14 02/18/24 20:16: Sodium 124 L, Potassium 3.8, Chloride 89 L, Carbon Dioxide 25.0, Anion Gap 10, BUN 10, Creatinine 0.79, Estim Creat Clear Calc 42.81, Est GFR (MDRD) Af Amer 88, Est GFR (MDRD) Non-Af 73, BUN/Creatinine Ratio 12.6, Glucose 164 H, Serum Osmolality 293, Calcium 9.7 02/19/24 00:01: Sodium 126 L, Potassium 3.9, Chloride 92 L, Carbon Dioxide 25.0, Anion Gap 9, BUN 10, Creatinine 0.69, Estim Creat Clear Calc 42.81, Est GFR (MDRD) Af Amer 103, Est GFR (MDRD) Non-Af 85, BUN/Creatinine Ratio 14.4, Glucose 99, Calcium 9.2 02/19/24 04:37: WBC 6.1, RBC 4.40, Hgb 12.2, Hct 37.4, MCV 85.0, MCH 27.7, MCHC 32.6, RDW Std Deviation 42.9, RDW Coeff of Mell 13.8, Plt Count 249, MPV 8.5, Immature Gran % (Auto) 0.200, Neut % (Auto) 55.9, Lymph % (Auto) 29.2, Mcintosh % (Auto) 10.6 H, Eos % (Auto) 3.3, Baso % (Auto) 0.8, Absolute Neuts (auto) 3.4, Absolute Lymphs (auto) 1.79, Nucleated RBC % 0, Sodium 127 L, Potassium 3.8, C hloride 93 L, Carbon Dioxide 25.0, Anion Gap 9, BUN 10, Creatinine 0.70, Estim Creat Clear Calc 42.81, Est GFR (MDRD) Af Amer 101, Est GFR (MDRD) Non-Af 84, BUN/Creatinine Ratio 14.2, Glucose 99, Calcium 9.4, Triglycerides 99, Cholesterol 163, LDL Cholesterol 64, VLDL Cholesterol 20, HDL Cholesterol 79, T SH 4.04 H 02/19/24 05:10: Urine Osmolality 295, Ur Random Sodium 68 Radiography Diagnostic Testing: Radiology Impression Head/Neck CTA 02/18/24 14:15 IMPRESSION: No acute abnormality. No large vessel occlusion. Prominent calcified plaque of both carotid bulbs worse on the left. Mild grade stenosis of left ICA. Moderate grade stenosis of the right ICA. Electronically Signed: Virgilio Yates MD at 16:30 EDT , Chest X-Ray 02/18/24 16:10 IMPRESSION: No definite acute or significant abnormality seen. Electronically Signed: Virgilio Yates MD at 16:33 EDT , Brain MRI 02/18/24 18:13 IMPRESSION: Involutional changes of the brain, as described above. Pansinusitis. Electronically Signed: nAdres Barrett MD at 21:29 EDT , D/C Instructions Discharge Diet: 8 Cup Fluid Restriction and 2000 mg Sodium Diet Weight Bearing Status: Weight bearing as tolerated Call your doctor if you observe: Fever of 101 or Higher, Coldness, Increased Pain, Numbness or Tingling, Change in Color, Inability to urinate, Inability to have a bowel movement, Shortness of breath, Dizziness, Fainting spells, Swelling in the ankles, Chest pain, Prolonged hiccupping, Increased palpitations (irregular heartbeat) and Calf discomfort When: IN 2 WEEKS Meaningful Use Info Meaningful Use Meaningful Use Diagnoses (Choose all that apply): None applicable Ischemic Stroke Statin Dosing Therapy Reference: STATIN DOSE THERAPY REFERENCE: * Patients > 75 years receive moderate or high dose statin therapy. * Patients 75 years or YOUNGER should receive HIGH intensity statin dose unless contraindicated. You will be required to document reason for non-treatment if statin daily dose does not meet guidelines. HIGH DOSE STATIN THERAPY DAILY Atorvastatin > than or = to 40 mg Rosuvastatin > than or = to 20 mg Amlodipine + Atorvastatin > than or = to 2.5/40 mg Ezetimibe + Simvastatin 10/80 mg Simvastatin 80mg Discharge Plan Admission Admit Date/Time: 02/18/24 17:54 Primary Reason for Your Visit: Dizziness. Stroke ruled out Attending Provider: Melvin Hurley Primary Care Provider: Martha Hadley Consulting Providers: Franco Burciaga; Eliu Prieto; Lester Hightower; Mandy Muse; Princess Cha; Tyra Plaza; Anival Quiroz; Destiny Newberry; Claude Salazar; Vaughn Krishnamurthy; Annia Naqvi; Vishnu Louis; Sahara Aviles; Yuriy Johnson; Froylan Craig; Oliver Simpson; Davy Lamar; Sean Feldman; Heather Best; Sandoval Kohli Discharge Orders/Prescriptions Prescriptions: Continued lovastatin 40 mg tablet 40 mg PO QPM cholecalciferol (vitamin D3) 50 mcg (2,000 unit) tablet 50 mcg PO .daily qhs Eliquis 5 mg tablet 5 mg PO BID Qty: 180 3RF losartan 25 mg tablet 25 mg PO BID atenolol 25 MG tablet 25 tab PO QHS Patient Comments: amlodipine 5 MG tablet 5 mg PO DAILY Patient Comments: loratadine [Claritin] 10 mg tablet 10 mg PO DAILY oxycodone 5 mg tablet 5 mg PO Q6H 3 Days Qty: 10 0RF pantoprazole 20 mg tablet,delayed release (DR/EC) 20 mg PO DAILY acetaminophen 500 mg capsule 500 mg PO Q6H PRN (Reason: pain) Align 4 mg capsule 4 mg PO DAILY fluticasone propionate 50 mcg/actuation spray,suspension 1 spray INTRANASAL DAILY Patient Comments: [NO ORIGINAL SIG] Referrals / Follow Up: Luis Chopra MD [Med Staff - Active Staff] - Within 1 Month (Bilateral mild to moderate carotid stenosis) Martha Hadley MD [Primary Care Provider] - Within 2 Weeks Disposition Disposition (needs filled in before D/C Order can be placed): Home Health Service Charges/Coding Addendum Addendum: Please cancel the billing charge of the progress note. Visit Charges Inpatient E&M: 68600 Disch Hosp >30min
[2024-02-19 14:52] VITALS: BMI 29.5
[2024-02-19 15:17] VITALS: BP 123/56; PULSE 78; RESP 16; TEMP 36.6; O2SAT 95
== END 2024-02-19 14:05 | disposition home health service (06) ==
LOC: ED 17:01 → PCU 17:47
PROVIDERS: Admitting Provider Hospitalist; Emergency Provider Emergency Medicine; PCP Internal Medicine; Visit Provider Internal Medicine
DX: G45.9 Transient cerebral ischemic attack, unspecified (principal); I48.0 Paroxysmal atrial fibrillation; E87.1 Hypo-osmolality and hyponatremia; D68.69 Other thrombophilia; Z79.01 Long term (current) use of anticoagulants; R41.0 Disorientation, unspecified; I10 Essential (primary) hypertension; E78.5 Hyperlipidemia, unspecified; H53.8 Other visual disturbances; R47.89 Other speech disturbances; Q21.12 Patent foramen ovale; M35.3 Polymyalgia rheumatica; Z79.899 Other long term (current) drug therapy; Z79.51 Long term (current) use of inhaled steroids
CPT/HCPCS: 36415; 70496; 70498; 70551; 71045; 80048; 80061; 82533; 82962; 83036; 83930; 83935; 84300; 84443; 84484; 84550; 85025; 85610; 85730; 93005; 93306; 94762; 96360; 96361; 97162; 97166; 97802; 99221; 99285; J7030; Q9967; A4216; G0378

== ENCOUNTER 2024-02-26 17:30 | Emergency (ER) | payer MEDICARE, SELFPAY ==
[2024-02-26 17:31] VITALS: BP 175/80; PULSE 80; PULSE 81; RESP 14; TEMP 36.3; O2SAT 99; BMI 29.7
--- NOTE | 2024-02-26 17:45 | EKG12_ITS ---
Test Reason : WEAKNESS Blood Pressure : / mmHG Vent. Rate : 089 BPM Atrial Rate : 089 BPM P-R Int : 212 ms QRS Dur : 084 ms QT Int : 352 ms P-R-T Axes : 067 033 028 degrees QTc Int : 428 ms Sinus rhythm with 1st degree A-V block with frequent and consecutive Premature ventricular complexes Abnormal ECG Confirmed by SUMMER COLEY, HARLEY ([id number]), editorial specialist KIM GURROLA ([id number]) on 02/28/2024 9:51:45 AM Referred By: Confirmed By:HARLEY WHEELER MD
--- NOTE | 2024-02-26 17:46 | EX.ED.DYSGE1 ---
HPI History of Present Illness Chief Complaint: Weakness Detail of Chief Complaint: Weakness and not feeling well Informant: patient Narrative Narrative: Patient presents to the emergency department complaint of generalized weakness and not feeling well that started today. Patient states that she was admitted last week for hyponatremia and she felt somewhat similarly. Patient states that she has increased her salt intake and was feeling really well yesterday and felt okay when she woke up this morning as well. Gradually she started feeling a little bit weak and started having diarrhea around noon and has had 3 watery stools. She denies any vomiting. She denies fevers or chills or sweats. She was little more winded walking up the driveway to the hospital than she would expect. She denies cough or sore throat. She denies urinary symptoms. Denies chest pain. Denies abdominal pain. Denies recent antibiotic usage or eating any suspicious or undercooked foods. [facility] Medical History Essential hypertension Patent foramen ovale Premature ventricular contraction NSVT (nonsustained ventricular tachycardia) Cardiac arrhythmia Interatrial cardiac shunt HLD (hyperlipidemia) Hyponatremia Temporal arteritis PMR (polymyalgia rheumatica) Carotid stenosis CVA (cerebral vascular accident) Home Medications ?Medication ?Instructions ?Recorded ?Last Taken ?Type amlodipine 5 mg tablet 5 mg PO DAILY bp 12/30/17 02/18/24 History atenolol 25 mg tablet 25 tab PO QHS bp 12/30/17 02/17/24 History lovastatin 40 mg tablet 40 mg PO QPM cholesterol 05/30/20 02/17/24 History cholecalciferol (vitamin D3) 50 50 mcg PO .daily qhs vitamin 07/06/22 02/17/24 History mcg (2,000 unit) tablet loratadine 10 mg tablet (Claritin) 10 mg PO DAILY allergies 07/06/22 02/17/24 History apixaban 5 mg tablet (Eliquis) 5 mg PO BID blood thinner #180 tabs 05/03/23 02/18/24 Rx losartan 25 mg tablet 25 mg PO BID blood pressure 06/16/23 02/18/24 History oxycodone 5 mg tablet 5 mg PO Q6H pain 3 days #10 tabs 01/17/24 Unknown Rx Bifidobacterium infantis 4 mg 4 mg PO DAILY supplement 02/18/24 02/17/24 History capsule (Align) acetaminophen 500 mg capsule 500 mg PO Q6H PRN pain 02/18/24 02/18/24 History fluticasone propionate 50 1 spray intranasal DAILY allergies 02/18/24 02/17/24 History mcg/actuation nasal spray,suspension pantoprazole 20 mg tablet,delayed 20 mg PO DAILY reflux 02/18/24 02/17/24 History release Allergy/AdvReac Type Severity Reaction Status Date / Time No Known Allergies Allergy Verified 02/26/24 17:32 Family History Mother CVA (cerebral vascular accident) Father Heart disease Myocardial infarction Surgical History History of wisdom tooth extraction Social History Smoking Status: Never smoker alcohol intake: never substance use type: does not use caffeine: No ROS ROS ED Review of Systems ROS Unobtainable: other Constitutional Constitutional ED: Reports lethargy; Denies chills, fever(s), sweats or weight loss Eyes Eyes: Denies blurry vision, change in vision or diplopia ENT ENT ED: Denies rhinorrhea or sore throat Cardiovascular Cardiovascular: Denies chest pain, orthopnea or racing heartbeat Respiratory/Chest Respiratory/Chest: Reports dyspnea; Denies cough, dyspnea on exertion, orthopnea or sputum Gastrointestinal Gastrointestinal: Reports diarrhea; Denies abdominal pain, nausea or vomiting Genitourinary Genitourinary ED: Denies dysuria, hematuria or urinary frequency Musculoskeletal Musculoskeletal: Denies arthralgias, back pain, myalgias or neck pain Integumentary Denies abscess, Abrasions or rash Neurologic Neurologic: Reports weakness; Denies headache(s) Psychiatric Psychiatric: Denies anxiety, depression or suicidal thoughts Endocrine Endocrinology: Denies polydipsia, polyphagia or polyuria Hematologic/Lymphatic Hematologic/Lymphatic: Denies easy bleeding, easy bruising or lymphadenopathy Allergic/Immunologic Allergic/Immunologic ED: Denies mouth swelling, tongue swelling or urticaria EXAM Physical Exam Const Vital Signs: 02/26/24 17:31 02/26/24 17:31 02/26/24 17:46 Temperature 97.4 F L Temperature Source Temporal Pulse Rate 81 80 Respiratory Rate 14 14 Respiratory Effort Normal Non-Labored Respiratory Pattern Normal Blood Pressure 175/80 H 175/80 H Blood Pressure Mean 111 111 Pulse Ox 99 99 Oxygen Delivery Method Room Air Room Air 02/26/24 19:28 Temperature 98.1 F Temperature Source Pulse Rate 70 Respiratory Rate 16 Respiratory Effort Respiratory Pattern Blood Pressure 158/82 H Blood Pressure Mean 107 Pulse Ox 95 Oxygen Delivery Method Positive well nourished and well developed General Appearance ED: well developed and NAD HEENT Reports TM's clear and moist mucous membranes normocephalic and atraumatic; Negative for trauma or tenderness Tympanic Membrane ED: Yes TM's clear Eyes PERRL and EOMs intact bilaterally General Eye ED: Negative for pale conjunctiva or scleral icterus Neck no lymphadenopathy, supple and no JVD General: Negative for tenderness Chest Wall inspection of chest normal and palpation of chest normal Chest: Negative for tenderness Resp normal respiratory effort and clear to auscultation bilaterally Effort and Inspection: Negative for respiratory distress or pain with movement Auscultation: Negative for rhonchi, wheezes or diminished lung sounds Cardio regular rate, regular rhythm, S1 normal heart sound, S2 normal heart sound and no murmurs Peripheral Pulses: pulses 2+ throughout GI normal to inspection, nondistended, normoactive bowel sounds, soft to palpation, non-tender, non-distended and no masses Back/Spine no CVA tenderness and no thoracic nor lumbar tenderness Extremity normal to inspection General Extremety ED: Negative for edema General Extremity: Negative for edema Neuro oriented x3, CN's II-XII intact bilaterally, no sensory deficits noted and gait normal Sensorium / Orientation: awake, alert, oriented to person, oriented to place and oriented to time Motor Exam: strength 5/5 throughout and strength abnormal Psych mental status grossly normal Skin no rashes or lesions noted and no wounds MDM MDM MDM Narrative Medical decision making narrative: Patient presents with generalized weakness and complaint not feeling well very vague symptoms. Patient recently admitted for hyponatremia and she felt similarly. Patient also had a stroke workup at that time that was negative including MRI. She has no focal deficits on exam. IV line established. CBC with differential count 7.0 with hemoglobin 12.9 and platelet count 299. Chemistries unremarkable. Sodium was 130. BUN 18 and creatinine 0.82. LFTs normal. Troponin normal at 13. Urinalysis was normal. COVID flu and RSV testing was negative. This point suspect possibly of viral gastroenteritis given the diarrhea and some chills that she has had. Clinically she looks well. She will be discharged to home and advised to follow-up with her primary care physician. She has an appointment in 4 days. Lab Data Attestation: I reviewed the patient's lab results. Labs: Laboratory Results - last 24 hr 02/26/24 02/26/24 18:00 19:00 WBC 7.0 RBC 4.62 Hgb 12.9 Hct 39.9 MCV 86.4 MCH 27.9 MCHC 32.3 RDW Std Deviation 45.1 H RDW Coeff of Mell 14.0 Plt Count 299 MPV 8.2 Immature Gran % (Auto) 0.100 Neut % (Auto) 63.6 Lymph % (Auto) 24.5 [place] % (Auto) 9.0 Eos % (Auto) 1.9 Baso % (Auto) 0.9 Absolute Neuts (auto) 4.5 Absolute Lymphs (auto) 1.71 Nucleated RBC % 0 Sodium 130 L Potassium 4.2 Chloride 94 L Carbon Dioxide 29.0 Anion Gap 7 BUN 18 Creatinine 0.82 Estim Creat Clear Calc 41.94 Est GFR (MDRD) Af Amer 85 Est GFR (MDRD) Non-Af 70 BUN/Creatinine Ratio 22.0 H Glucose 112 H Calcium 9.6 Total Bilirubin 0.30 AST 18 ALT 17 Alkaline Phosphatase 66 Troponin I High Sens 13 Total Protein 8.3 H Albumin 4.1 Globulin 4.2 Albumin/Globulin Ratio 1.0 Urine Color Straw Urine Clarity Clear Urine pH 7.0 Ur Specific [place] 1.005 Urine Protein Negative Urine Glucose (UA) Normal Urine Ketones Negative Urine Occult Blood Negative Urine Nitrite Negative Urine Bilirubin Negative Urine Urobilinogen Normal Ur Leukocyte Esterase 100 H Urine RBC 0 SEEN Urine WBC 0-5 SEEN Ur Squamous Epith Cells 0 SEEN Urine Bacteria 0 SEEN Urine Mucus 0 SEEN EKG Initial EKG: Attestation: I personally reviewed and interpreted this EKG as follows: Comments: Sinus rhythm with rate of 89 bpm with first-degree AV block and PVCs Discharge Plan Triage Chief Complaint: Weakness ED Provider: Ave Multani Dx/Rx/DC Orders Clinical Impression: Weakness, Diarrhea Instructions: ED Diarrhea, Unknown Cause, ED Weakness (Uncertain Cause) Prescriptions: No Action lovastatin 40 mg tablet 40 mg PO QPM cholecalciferol (vitamin D3) 50 mcg (2,000 unit) tablet 50 mcg PO .daily qhs Eliquis 5 mg tablet 5 mg PO BID Qty: 180 3RF losartan 25 mg tablet 25 mg PO BID atenolol 25 MG tablet 25 tab PO QHS Patient Comments: amlodipine 5 MG tablet 5 mg PO DAILY Patient Comments: loratadine [Claritin] 10 mg tablet 10 mg PO DAILY oxycodone 5 mg tablet 5 mg PO Q6H 3 Days Qty: 10 0RF pantoprazole 20 mg tablet,delayed release (DR/EC) 20 mg PO DAILY acetaminophen 500 mg capsule 500 mg PO Q6H PRN (Reason: pain) Align 4 mg capsule 4 mg PO DAILY fluticasone propionate 50 mcg/actuation spray,suspension 1 spray INTRANASAL DAILY Patient Comments: [NO ORIGINAL SIG] Primary Care Provider: Martha Hadley Referrals: Martha Hadley MD [Primary Care Provider] - 3-5 Days Print Language: Armenian Disposition Disposition: Home, Self Care
[2024-02-26 18:09] LABS: Absolute Lymphocyte Count 1.71 X10^3/uL (0.83-4.51); Absolute Neutrophil Count 4.5 X10^3/uL (2.0-7.7); Basophil# 0.06 X10^3/uL; Basophil% 0.9 % (0-1); Eosinophil# 0.13 X10^3/uL; Eosinophils% 1.9 % (0-5); Hematocrit 39.9 % (37-47); Hemoglobin 12.9 g/dL (12.0-15.0); Lymphocyte # 1.71 X10^3/ul (0.83-4.51); Lymphocyte % 24.5 % (19-41); Mean Corp Hgb Conc 32.3 g/dL (32-36); Mean Corpuscular Hgb 27.9 pg (27.0-32.0); Mean Corpuscular Volume 86.4 fL (81-99); Mean Platelet Vol. 8.2 fl (6.2-12.0); Monocyte# 0.63 X10^3/uL; NRBC Flagged by Analyzer 0 % (0-5); Neutrophil # 4.45 X10^3/uL (2.7-7.7); Neutrophil % 63.6 % (47-70); Platelet Count 299 K/mm3 (150-450); RBC Distribution Width SD 45.1 fl (35.1-43.9); Red Blood Count 4.62 M/mm3 (4.2-5.4)
[2024-02-26] MEDS: 0.9% Normal Saline (1000mL) 1,000 ML 150 ML IV (18:23)
[2024-02-26 18:31] LABS: AST(SGOT) 18 U/L (15-37); Alanine Aminotransfer ALT/SGPT 17 U/L (13-56); Albumin, Serum 4.1 g/dL (3.2-5.0); Alkaline Phosphatase 66 U/L (45-117); Anion Gap 7 (5-15); BUN 18 mg/dL (7-18); Calcium,Total 9.6 mg/dL (8.5-10.1); Chloride 94 mmol/L (98-107); Creatinine, Serum 0.82 mg/dL (0.55-1.02); EST Glomerular Filtration Rate 70 mL/min (>60); Est Glom Filt Rate - Afr Amer 85 mL/min (>60); Estimated Creatinine Clearance 41.94 ml/min; Globulin 4.2 g/dL (2.2-4.2); Glucose 112 mg/dL (74-106); Potassium 4.2 mmol/L (3.5-5.1); Protein, Total 8.3 g/dL (6.4-8.2); Sodium Level 130 mmol/L (136-145); Troponin-I HS 13 pg/mL (3.0-54.0)
[2024-02-26 19:10] LABS: Bacteria 0 SEEN /hpf (None Seen); Mucous, Urine 0 SEEN /hpf (<or=2+); Red Blood Cells-Urine 0 SEEN /hpf (0-5); Squamous Epithelial Cells - UA 0 SEEN /hpf (5-10)
[2024-02-26 19:11] LABS: Color, Urine Straw (Yellow); Glucose, Dipstick Normal (Normal); Ketone-Dipstick Negative (Negative); Leukocyte Esterase-Dipstick 100 /ul (Negative); Nitrite-Dipstick Negative (Negative); Occult Blood-Urine Negative /ul (Negative); Protein-Dipstick Negative (Negative); Specific Gravity, Urine 1.005 (1.002-1.030); Urine Bilirubin Dipstick Negative (Negative); Urine Clarity Clear (Clear); Urine Urobilinogen Normal (Normal)
[2024-02-26 19:16] LABS: White Blood Cells 0-5 SEEN /hpf (0-5)
[2024-02-26 19:28] VITALS: BP 158/82; PULSE 70; RESP 16; TEMP 36.7; O2SAT 95
== END 2024-02-26 19:50 | disposition home or self-care (01) ==
PROVIDERS: Emergency Provider Emergency Medicine; PCP Internal Medicine; Visit Provider Emergency Medicine
DX: R53.1 Weakness (principal); R19.7 Diarrhea, unspecified; I10 Essential (primary) hypertension; E78.5 Hyperlipidemia, unspecified; R06.00 Dyspnea, unspecified; Z86.73 Personal history of transient ischemic attack (TIA), and cerebral infarction without residual deficits; Z82.49 Family history of ischemic heart disease and other diseases of the circulatory system; R94.31 Abnormal electrocardiogram [ECG] [EKG]; I44.0 Atrioventricular block, first degree
CPT/HCPCS: 80053; 81001; 84484; 85025; 87631; 93005; 96360; 96361; 99284; J7030; A4216

== ENCOUNTER 2024-04-04 14:54 | Emergency (ER) | payer MEDICARE, SELFPAY ==
[2024-04-04 14:55] VITALS: BP 152/82; PULSE 93; RESP 18; TEMP 36.8; O2SAT 99; BMI 31.4
--- NOTE | 2024-04-04 15:07 | EKG12_ITS ---
Test Reason : PALP Blood Pressure : / mmHG Vent. Rate : 099 BPM Atrial Rate : 000 BPM P-R Int : 000 ms QRS Dur : 084 ms QT Int : 350 ms P-R-T Axes : 000 067 029 degrees QTc Int : 449 ms Atrial fibrillation Septal infarct , age undetermined Abnormal ECG Confirmed by OH COLEY, MARK ([id number]), videotape editor ARIANE DAWSON ([id number]) on 04/06/2024 10:34:41 A M Referred By: Confirmed By:GAGE CASIANO MD
--- NOTE | 2024-04-04 15:21 | RAD_ITS ---
STUDY: X-RAY CHEST REASON FOR EXAM: Female, 88 years old. Chest pain TECHNIQUE: Single AP portable view of the chest. COMPARISON: Comparison is made with prior study dated February 18, 2024. FINDINGS: EKG electrodes are seen. Since prior study, there has been progression of the increased markings in the left midlung as well as in the right lung base. Atelectasis with superimposed infiltrate should be ruled out. Follow up recommended. There is no demonstrated pleural abnormality. Normal size heart. Normal mediastinum and micah. Normal visualized pulmonary arteries. There is atherosclerotic calcification of the aortic arch with tortuosity. There are diffuse degenerative changes of the visualized thoracic spine. There is degenerative osteoarthritis of the bilateral shoulders. There is no demonstrated abnormality of the visualized soft tissue structures of the upper abdomen. RAD/Chest 1 View (Portable) IMPRESSION: Increased markings in the left midlung and right lung base as compared to prior study. This may represent either progressive atelectasis and/or scarring. Electronically Signed: Alexandre Santos MD at 15:41 EDT ,
[2024-04-04 15:35] LABS: Absolute Lymphocyte Count 1.28 X10^3/uL (0.83-4.51); Absolute Neutrophil Count 4.9 X10^3/uL (2.0-7.7); Basophil# 0.06 X10^3/uL; Basophil% 0.8 % (0-1); Eosinophil# 0.11 X10^3/uL; Eosinophils% 1.5 % (0-5); Hematocrit 35.3 % (37-47); Hemoglobin 11.4 g/dL (12.0-15.0); Lymphocyte # 1.28 X10^3/ul (0.83-4.51); Lymphocyte % 17.8 % (19-41); Mean Corp Hgb Conc 32.3 g/dL (32-36); Mean Corpuscular Hgb 28.1 pg (27.0-32.0); Mean Corpuscular Volume 86.9 fL (81-99); Mean Platelet Vol. 8.4 fl (6.2-12.0); Monocyte# 0.85 X10^3/uL; Monocyte% 11.8 % (0-10); NRBC Flagged by Analyzer 0 % (0-5); Neutrophil # 4.89 X10^3/uL (2.7-7.7); Neutrophil % 67.8 % (47-70); Platelet Count 278 K/mm3 (150-450); RBC Distribution Width CV 13.6 % (11.6-14.6); RBC Distribution Width SD 42.8 fl (35.1-43.9); Red Blood Count 4.06 M/mm3 (4.2-5.4); White Blood Count 7.2 K/mm3 (4.4-11.0)
--- NOTE | 2024-04-04 15:40 | EX.ED.DYSGE1 ---
HPI History of Present Illness Chief Complaint: Palpitations Narrative Narrative: 88-year-old female presenting with generalized fatigue. She states that she does not really have an appetite. This been ongoing for a few weeks. She states it almost feels like she has acid reflux but also states that she does not have any pain. Does not have any but she states she feels full in her lungs. She states she is not really short of breath. She has a history of paroxysmal A-fib and is on Eliquis. She takes atenolol 25 mg daily for rate control. She takes this at night. Patient does not note any leg swelling. She is unsure as her weights change. She has not had a fever or chills. [facility] Medical History Essential hypertension Patent foramen ovale Premature ventricular contraction NSVT (nonsustained ventricular tachycardia) Cardiac arrhythmia Interatrial cardiac shunt HLD (hyperlipidemia) Hyponatremia Temporal arteritis PMR (polymyalgia rheumatica) Carotid stenosis CVA (cerebral vascular accident) Home Medications ?Medication ?Instructions ?Recorded ?Last Taken ?Type amlodipine 5 mg tablet 5 mg PO DAILY bp 12/30/17 02/18/24 History atenolol 25 mg tablet 25 tab PO QHS bp 12/30/17 02/17/24 History lovastatin 40 mg tablet 40 mg PO QPM cholesterol 05/30/20 02/17/24 History cholecalciferol (vitamin D3) 50 50 mcg PO .daily qhs vitamin 07/06/22 02/17/24 History mcg (2,000 unit) tablet loratadine 10 mg tablet (Claritin) 10 mg PO DAILY allergies 07/06/22 02/17/24 History losartan 25 mg tablet 25 mg PO BID blood pressure 06/16/23 02/18/24 History Bifidobacterium infantis 4 mg 4 mg PO DAILY supplement 02/18/24 02/17/24 History capsule (Align) acetaminophen 500 mg capsule 500 mg PO Q6H PRN pain 02/18/24 02/18/24 History fluticasone propionate 50 1 spray intranasal DAILY allergies 02/18/24 02/17/24 History mcg/actuation nasal spray,suspension pantoprazole 20 mg tablet,delayed 20 mg PO DAILY reflux 02/18/24 02/17/24 History release apixaban 5 mg tablet (Eliquis) 5 mg PO BID blood thinner #180 tabs 03/06/24 Unknown Rx atenolol 25 mg tablet 25 mg PO BID #60 tabs 04/04/24 Unknown Rx Allergy/AdvReac Type Severity Reaction Status Date / Time No Known Allergies Allergy Verified 04/04/24 14:56 Family History Mother CVA (cerebral vascular accident) Father Heart disease Myocardial infarction Surgical History History of wisdom tooth extraction Social History Smoking Status: Never smoker alcohol intake: never substance use type: does not use caffeine: No ROS ROS ED Review of Systems ROS Unobtainable: due to encephalopathy Constitutional Constitutional ED: Denies chills or fever(s) Eyes Eyes: Denies blurry vision or change in vision ENT ENT ED: Denies rhinorrhea or sore throat Cardiovascular Cardiovascular: Reports palpitations; Denies chest pain Respiratory/Chest Respiratory/Chest: Denies cough or dyspnea Gastrointestinal Gastrointestinal: Denies abdominal pain, nausea or vomiting Genitourinary Genitourinary ED: Denies dysuria or hematuria Musculoskeletal Musculoskeletal: Denies arthralgias or back pain Integumentary Denies abscess Neurologic Neurologic: Denies headache(s) or paresthesias Psychiatric Psychiatric: Denies anxiety or depression EXAM Physical Exam Const Vital Signs: 04/04/24 14:55 04/04/24 15:35 04/04/24 15:35 Temperature 98.2 F Temperature Source Temporal Pulse Rate 93 Respiratory Rate 18 Respiratory Effort Short of Breath Blood Pressure 152/82 H Blood Pressure Mean 105 Pulse Ox 99 Oxygen Delivery Method Room Air Room Air 04/04/24 16:54 Temperature Temperature Source Pulse Rate 77 Respiratory Rate 22 H Respiratory Effort Blood Pressure 124/77 H Blood Pressure Mean 92 Pulse Ox 95 Oxygen Delivery Method Room Air Positive well nourished General Appearance ED: NAD HEENT Reports moist mucous membranes and dry mucous membranes Mouth ED: Yes dry mucous membranes Mouth: dry mucous membranes Eyes PERRL and EOMs intact bilaterally Chest Wall inspection of chest normal Resp normal respiratory effort and clear to auscultation bilaterally Auscultation: Negative for rales, rhonchi or wheezes Cardio regular rate Rhythm: abnormal rhythm irregularly irregular GI normal to inspection, nondistended, normoactive bowel sounds Extremity normal to inspection General Extremety ED: Negative for edema General Extremity: Negative for edema Neuro oriented x3 and CN's II-XII intact bilaterally Sensorium / Orientation: alert Psych mental status grossly normal Mood & Affect: Negative for anxious or tearful Skin no rashes or lesions noted and no wounds MDM MDM MDM Narrative Medical decision making narrative: Patient presenting with generalized fatigue and just not feeling well overall. She states she has not had an appetite recently but denies any pain or nausea. She has a history of paroxysmal A-fib and in the room while I am talking to her she is in and out of A-fib on the monitor. She is rate controlled. Differential includes but is not limited to ACS, pneumonia, pneumothorax, muscle strain, costochondritis, UTI, dehydration, anemia, electrolyte abnormalities, CHF CBC will be obtained to assess white blood cell count, hemoglobin, platelets. BMP to assess renal function, electrolytes, glucose. High-sensitivity troponin and EKG to assess for ischemia/dysrhythmia. BNP to assess for CHF. Chest x-ray to rule out pneumonia or CHF. BNP slightly elevated at 417 although her chest x-ray is negative for CHF interpreted by myself. I do not see any pneumonia either. CBC shows normal white blood cell count 7.2, hemoglobin 11.4, platelets 278, renal function within normal limits. Sodium slightly low at 130 but this is common for the patient. Urinalysis negative for infection. I did give her 10 mg of Cardizem to slow her heart rate down as she was on her way around 100 and A-fib and she is now in the 70s. Discussed with Dr. Faulkner who recommended discontinuing her amlodipine 5 mg and increasing her atenolol p.o. twice daily. This was discussed with the patient and her son and they understand this. I personally updated her med list for her. Discharged in stable condition. Impression: 1. Weakness 2. A-fib Lab Data Attestation: I reviewed the patient's lab results. Labs: Laboratory Results - last 24 hr 04/04/24 04/04/24 15:15 16:55 WBC 7.2 RBC 4.06 L Hgb 11.4 L Hct 35.3 L MCV 86.9 MCH 28.1 MCHC 32.3 RDW Std Deviation 42.8 RDW Coeff of Mell 13.6 Plt Count 278 MPV 8.4 Immature Gran % (Auto) 0.300 Neut % (Auto) 67.8 Lymph % (Auto) 17.8 L [place] % (Auto) 11.8 H Eos % (Auto) 1.5 Baso % (Auto) 0.8 Absolute Neuts (auto) 4.9 Absolute Lymphs (auto) 1.28 Nucleated RBC % 0 Sodium 130 L Potassium 4.0 Chloride 96 L Carbon Dioxide 27.0 Anion Gap 7 BUN 15 Creatinine 0.90 Estim Creat Clear Calc 39.28 Est GFR (MDRD) Af Amer 76 Est GFR (MDRD) Non-Af 63 BUN/Creatinine Ratio 16.6 Glucose 128 H Calcium 9.4 Troponin I High Sens 13 B-Natriuretic Peptide 417.8 H Urine Color Yellow Urine Clarity Clear Urine pH 7.0 Ur Specific [place] 1.010 Urine Protein Negative Urine Glucose (UA) Normal Urine Ketones Negative Urine Occult Blood Negative Urine Nitrite Negative Urine Bilirubin Negative Urine Urobilinogen Normal Ur Leukocyte Esterase 100 H Urine RBC 0 SEEN Urine WBC 0-5 SEEN Ur Squamous Epith Cells 0 SEEN Urine Bacteria 0 SEEN Urine Mucus 0 SEEN Radiography Diagnostic Testing: Clinical Impression(s) from Imaging Studies Chest X-Ray 04/04/24 15:21 IMPRESSION: Increased markings in the left midlung and right lung base as compared to prior study. This may represent either progressive atelectasis and/or scarring. Electronically Signed: Alexandre Santos MD at 15:41 EDT , Discharge Plan Triage Chief Complaint: Palpitations ED Provider: Christopher Alatorre Dx/Rx/DC Orders Instructions: ED AFIB, ED Weakness (Uncertain Cause) Prescriptions: New atenolol 25 mg tablet 25 mg PO BID Qty: 60 0RF No Action lovastatin 40 mg tablet 40 mg PO QPM cholecalciferol (vitamin D3) 50 mcg (2,000 unit) tablet 50 mcg PO .daily qhs losartan 25 mg tablet 25 mg PO BID atenolol 25 MG tablet 25 tab PO QHS Patient Comments: amlodipine 5 MG tablet 5 mg PO DAILY Patient Comments: loratadine [Claritin] 10 mg tablet 10 mg PO DAILY pantoprazole 20 mg tablet,delayed release (DR/EC) 20 mg PO DAILY acetaminophen 500 mg capsule 500 mg PO Q6H PRN (Reason: pain) Align 4 mg capsule 4 mg PO DAILY fluticasone propionate 50 mcg/actuation spray,suspension 1 spray INTRANASAL DAILY Patient Comments: [NO ORIGINAL SIG] Eliquis 5 mg tablet 5 mg PO BID Qty: 180 3RF Primary Care Provider: Martha Hadley Referrals: Martha Hadley MD [Primary Care Provider] - Print Language: Turkmen Disposition Disposition: Home, Self Care
[2024-04-04 15:48] LABS: Anion Gap 7 (5-15); BUN 15 mg/dL (7-18); BUN/Creat Ratio 16.6 RATIO (10-20); Calcium,Total 9.4 mg/dL (8.5-10.1); Chloride 96 mmol/L (98-107); EST Glomerular Filtration Rate 63 mL/min (>60); Est Glom Filt Rate - Afr Amer 76 mL/min (>60); Estimated Creatinine Clearance 39.28 ml/min; Glucose 128 mg/dL (74-106); Sodium Level 130 mmol/L (136-145); Troponin-I HS 13 pg/mL (3.0-54.0)
[2024-04-04] MEDS: dilTIAZem 25 MG/5 ML Vial 10 MG IV BOLUS (15:54)
[2024-04-04 16:32] LABS: BNP,B-Type NATRIURETIC PEPTIDE 417.8 pg/mL (0-100)
[2024-04-04 16:54] VITALS: BP 124/77; PULSE 77; RESP 22; O2SAT 95
[2024-04-04] MEDS: 0.9% Normal Saline (1000mL) 1,000 ML 999 ML IV (16:58)
[2024-04-04 17:09] LABS: Bacteria 0 SEEN /hpf (None Seen); Mucous, Urine 0 SEEN /hpf (<or=2+); Red Blood Cells-Urine 0 SEEN /hpf (0-5); Squamous Epithelial Cells - UA 0 SEEN /hpf (5-10)
[2024-04-04 17:11] LABS: Color, Urine Yellow (Yellow); Glucose, Dipstick Normal (Normal); Ketone-Dipstick Negative (Negative); Leukocyte Esterase-Dipstick 100 /ul (Negative); Nitrite-Dipstick Negative (Negative); Occult Blood-Urine Negative /ul (Negative); Protein-Dipstick Negative (Negative); Urine Bilirubin Dipstick Negative (Negative); Urine Clarity Clear (Clear); Urine Urobilinogen Normal (Normal)
[2024-04-04 17:17] LABS: White Blood Cells 0-5 SEEN /hpf (0-5)
[2024-04-04 18:00] VITALS: BP 132/78; PULSE 86; RESP 20; O2SAT 92
[2024-04-04 18:25] VITALS: BP 135/74; PULSE 82; RESP 16; TEMP 36.6; O2SAT 97
== END 2024-04-04 18:27 | disposition home or self-care (01) ==
PROVIDERS: Emergency Provider Student in an Organized Health Care Education/Training Program; PCP Internal Medicine; Visit Provider Student in an Organized Health Care Education/Training Program
DX: I48.91 Unspecified atrial fibrillation (principal); R53.1 Weakness; E78.5 Hyperlipidemia, unspecified; R53.83 Other fatigue; I10 Essential (primary) hypertension; Z86.73 Personal history of transient ischemic attack (TIA), and cerebral infarction without residual deficits; R94.31 Abnormal electrocardiogram [ECG] [EKG]; R07.9 Chest pain, unspecified; R00.2 Palpitations; Q21.12 Patent foramen ovale; Z79.01 Long term (current) use of anticoagulants
CPT/HCPCS: 71045; 80048; 81001; 83880; 84484; 85025; 93005; 96360; 99284; J7030; A4216

== ENCOUNTER → 2024-07-03 | Outpatient (CLI) | payer MEDICARE, SELFPAY | END | disposition home or self-care (01) | LOC: SL 19:45 | PROVIDERS: PCP Internal Medicine | DX: I27.20 Pulmonary hypertension, unspecified (principal); I48.19 Other persistent atrial fibrillation; G47.10 Hypersomnia, unspecified | CPT/HCPCS: 95810 ==